=== PATIENT | male | born 1970 | race Two or more races ===

== ENCOUNTER 2024-09-14 16:17 | Inpatient (IN) | payer MEDICAID, OTHER, SELFPAY ==
[2024-09-14 16:46] VITALS: BP 109/62; PULSE 128; RESP 24; TEMP 38.8; O2SAT 98
[2024-09-14 16:59] VITALS: BMI 19.5
--- NOTE | 2024-09-14 17:00 | XR_ITS ---
Examination: AP chest single view Technique: Portable sitting AP chest single view Exam date and time: September 14, 2024 1749 hrs. Indications: New admission Findings: Atelectasis versus pneumonia left base Right ventricular peritoneal shunt tube satisfactory position Normal heart size Tracheostomy tube 7 cm above diego Impression: Atelectasis versus pneumonia left base, clinical correlation advised
[2024-09-14 17:21] LABS: Base Excess 19 (-3-3); HCO3 45 mEq/L (20-26); Inspired O2, VO2 Liters 3 L/min; Inspired Oxygen, FIO2 21 %; O2 Saturation 95 % (91-98); PCO2 59 mmHg (32.0-48.0); PO2 72 mmHg (83-108); pH, Arterial 7.49 (7.35-7.45)
[2024-09-14 17:24] LABS: Allen Test Performed/OK; Puncture Site Left Radial
[2024-09-14 17:47] LABS: Basophils # (Auto) 0.1 Thou/mm3 (0.0-0.2); Basophils % (Auto) 1 % (0-2.5); Eosinophils # (Auto) 0.3 Thou/mm3 (0.0-0.5); Eosinophils % (Auto) 4 % (0-10); Hematocrit 33.7 % (41.0-53.0); Hemoglobin 10.3 g/dL (13.5-16.0); Immature Granulocytes % (Auto) 0 % (0-0); Immature Granulocytes Auto 0.02 Thou/mm3 (0.00-0.00); Lymphocytes % (Auto) 39 % (10-50); Mean Corpuscular HGB Conc 30.6 g/dl (31.0-37.0); Mean Corpuscular Hemoglobin 25.9 pg (25.0-35.0); Mean Corpuscular Volume 85 fL (80-100); Monocytes # (Auto) 0.7 Thou/mm3 (0.0-0.8); Monocytes % (Auto) 9 % (0-12); Neutrophils # (Auto) 3.6 Thou/mm3 (1.8-7.7); Neutrophils % (Auto) 47 % (37-80); Nucleated Red Blood Cell % 0 /100 WBC (0); Platelet Count 429 Thou/mm3 (140-440); RDW Standard Deviation 51.4 fL (35.1-43.9); Red Blood Count 3.98 Miln/mm3 (4.50-5.90); White Blood Count 7.6 Thou/mm3 (3.8-10.6)
--- NOTE | 2024-09-14 17:54 | PC.ADMIT ---
Resident Arrived by ambulance via gurney from [facility]. Alert and oriented x2. Resident is currently a inmate from [facility]. Resident with trach collar, Oxygen with 2L via mask. Complete assessment was done Air Brush Decorator assisted by Nurse Paulette and Nurse Sanjuanita Pa, During assessment pictures were taken, Multiple skin issues were noted open areas, DIT , to sacrum area. These skin issues will be assess by Wound nurse as early as tomorrow, temporary treatment in place. Resident able to localize pain. noted increased HR during assessment, body temperature noted to be warm. rectal temp took it 101.9, HR 125, RR 21, B/P 128/62. Initiated cooling measures . No respiratory distress noted at the time of arrival(1608). Will continue to monitor and carried out all med orders. Dr. Sanchez aware of resident's admission.
[2024-09-14 18:00] VITALS: BP 131/84; PULSE 120; RESP 20; TEMP 37.7; O2SAT 92
[2024-09-14 18:15] LABS: Albumin, Serum 3.4 gm/dL (3.5-5.0); Alkaline Phosphatase 154 U/L (46-116); Anion Gap 8 (7-16); Aspartate Amino Transferase 15 U/L (0-34); BUN/Creatinine Ratio 28 Ratio (12-20); Bilirubin,Total 0.2 mg/dL (0.3-1.2); Blood Urea Nitrogen 11 mg/dL (9-23); Calcium (Corrected) 10.5 mg/dL (8.5-10.1); Carbon Dioxide 39.4 mMol/L (20.0-31.0); Chloride 105 mMol/L (98-107); Creatinine (Component) 0.4 mg/dL (0.6-1.3); Estimated Creatinine Clearance 169.3 mL/min (>60); Globulin 3.5 gm/dL (2.3-3.5); Glucose 107 mg/dL (74-106); Osmolality,Calculated 301 (275-295); Potassium 2.8 mMol/L (3.4-5.1); Sodium 152 mMol/L (136-145); Total Protein 6.9 gm/dL (5.7-8.2); eGFR > 60 See Note
[2024-09-14 18:20] LABS: Alanine Aminotransferase < 7 U/L (10-49)
[2024-09-14 21:00] VITALS: TEMP 37.3
[2024-09-14 21:10] VITALS: PULSE 101; RESP 20; O2SAT 94
[2024-09-14] MEDS: ACETAMINOPHEN 325 MG TABLET 650 MG GT (21:55)
[2024-09-14] MEDS: [UNRECOGNIZED DRUG - OTHER] GT (21:55)
[2024-09-14] MEDS: GABAPENTIN 100 MG CAPSULE 200 MG GT (21:55)
[2024-09-14] MEDS: DOCUSATE GT (21:55)
[2024-09-14 23:00] VITALS: TEMP 37.3
[2024-09-15] VITALS (7 sets, daily range): BP systolic 106–139; BP diastolic 68–77; PULSE 96–115; RESP 16–30; TEMP 36.1–37.4; O2SAT 92–96
[2024-09-15] MEDS: POTASSIUM CHLORIDE 10 MEQ CAPSULE.ER GT (00:40)
--- NOTE | 2024-09-15 03:40 | PC.NURSE ---
Notified Dr Sanchez regarding Na+156. K+ 2.8, new order to give Potassium Chloride 10 meq x 1 dose now and repeat Renal panel in AM.
[2024-09-15] MEDS: METOCLOPRAMIDE 5 MG/5 ML 10 MG GT ×3 (05:17→21:26)
[2024-09-15] MEDS: ACETAMINOPHEN 325 MG TABLET 650 MG GT (07:36)
[2024-09-15] MEDS: ENOXAPARIN SODIUM 40 MG/0.4 ML SYRINGE SC (09:13)
[2024-09-15] MEDS: ASCORBIC ACID 500 MG TABLET GT (09:16)
[2024-09-15] MEDS: levETIRAcetam 100 MG/ML SOLUTION 500 MG GT ×2 (09:16→21:26)
[2024-09-15] MEDS: GABAPENTIN 100 MG CAPSULE 200 MG GT ×2 (09:16→21:26)
[2024-09-15] MEDS: CHOLECALCIFEROL (VITAMIN D3) 25 MCG TABLET 50 MCG PO (09:16)
[2024-09-15] MEDS: METOPROLOL SUCCINATE 25 MG GT (09:16)
[2024-09-15] MEDS: SCOPOLAMINE 1.5 MG TD (09:17)
[2024-09-15] MEDS: MULTIVITAMIN W MINERALS 1 EACH TABLET GT (09:17)
[2024-09-15 10:37] LABS: Albumin, Serum 3.4 gm/dL (3.5-5.0); Anion Gap 6 (7-16); BUN/Creatinine Ratio 33 Ratio (12-20); Blood Urea Nitrogen 13 mg/dL (9-23); Calcium 9.7 mg/dL (8.3-10.6); Calcium (Corrected) 10.2 mg/dL (8.5-10.1); Carbon Dioxide > 40.0 mMol/L (20.0-31.0); Chloride 104 mMol/L (98-107); Creatinine (Component) 0.4 mg/dL (0.6-1.3); Estimated Creatinine Clearance 169.3 mL/min (>60); Glucose 136 mg/dL (74-106); Osmolality,Calculated 300 (275-295); Phosphorous 3.9 mg/dL (2.4-5.1); Potassium 2.9 mMol/L (3.4-5.1); Sodium 150 mMol/L (136-145); eGFR > 60 See Note
--- NOTE | 2024-09-15 12:15 | ESHP_ITS ---
Physical exam Physical Exam Vital signs: Temp Pulse Resp BP Pulse Ox O2 Del Method O2 Flow Rate 98.6 F 108 H 30 H 139/77 H 92 L Trach Collar 6 09/15/24 17:45 09/15/24 17:45 09/15/24 17:45 09/15/24 17:45 09/15/24 17:45 09/14/24 16:46 09/15/24 12:12 FiO2 28 09/15/24 12:12 Constitutional Comments: VSS Neck Exam Comments: NAD Chest/Breast/Axilla Exam Comments: NAD Respiratory Exam Respiratory: Present chest non-tender, lungs clear, normal breath sounds and no resp distress Comments: Tracheostomy to blow by Cardiovascular Exam Cardiovascular: Present RRR, S1 and S2 Abdominal Exam Abdominal: Present normoactive bowel sounds Rectal Exam Comments: deferred Exam Comments: NAD Extremities Exam Comments: No clubbing , cyanosis or edema Back/Spine/Pelvis Exam Comments: NAD Skin Exam Comments: Sacral wound healing Neurological Exam Neurological: Present alert and oriented X3 Comments: Quadriplegic , incontinent of B & B Rehabilitation potential Diagnosis (1) Chronic respiratory failure: Status: Chronic (2) Disseminated coccidioidomycosis: Status: Chronic (3) Hydrocephalus: Status: Chronic (4) Ventriculo-peritoneal shunt status: Status: Chronic (5) Quadriplegia: Status: Chronic (6) G tube feedings: Status: Chronic (7) Tracheostomy in place: Status: Chronic Assessment & Plan Assessment: Pt is a inmate admitted to [facility] on 09/14/24 for intermediate accountant care with : Chronic disseminated Cocci involving 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 Continued on ongoing treatment which is reviewed from time to time Denies any pain/ headaches and remains amiable. 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
[2024-09-15] MEDS: TRAMADOL 50 MG TABLET 25 MG GT (21:15)
[2024-09-15] MEDS: ATORVASTATIN 10 MG TABLET GT (21:26)
[2024-09-15] MEDS: [UNRECOGNIZED DRUG - OTHER] GT (21:26)
[2024-09-15] MEDS: DOCUSATE GT (21:26)
[2024-09-16] VITALS (9 sets, daily range): BP systolic 126–141; BP diastolic 72–79; PULSE 90–117; RESP 20–24; TEMP 36.7–38; O2SAT 96–98
[2024-09-16] MEDS: POTASSIUM CHLORIDE 20 MEQ TAB.ER.PRT 40 MEQ GT
--- NOTE | 2024-09-16 00:30 | PC.NURSE ---
Peg tube clogged during administration of 40meq K+.. unable to unclog.
--- NOTE | 2024-09-16 02:25 | PC.NURSE ---
FLORAL SPECIALIST called this nurse to ER for gtube clogged, multiple attempts used to unclog the gtube, made aware, new order obtained to sent resident to ER for treatment and evaluation for clogged Gtube, resident was transported via bed by FLORAL SPECIALIST, TRANSPORT COORDINATOR, RT, and 2 correctional officers.
--- NOTE | 2024-09-16 02:30 | PC.NURSE ---
resident sent to ED at this time for Peg tub evaluation due to unsuccessful attempts to unclog
--- NOTE | 2024-09-16 02:36 | PC.NURSE ---
Late entry for 09/16/232219- made aware of lab results, new orders obtain to give potassium 40Meq via Gtube now and then another dose 6 hours after, cmp and magnesium lab to be done in morning.
--- NOTE | 2024-09-16 03:13 | PC.NURSE ---
Resident back at 0309 via bed, accompanied by WHISKEY PROOF READER, REPLENISHER, RT and two correctional officers, new Gtube placed by STEFANIA CRAIG.
--- NOTE | 2024-09-16 03:15 | PC.NURSE ---
resident back in dp/snf room after peg tube changed with same size 14f 5ml ns peg tube. resident comfortable in [id number] at this time
[2024-09-16] MEDS: METOCLOPRAMIDE 5 MG/5 ML 10 MG GT ×3 (05:34→21:40)
[2024-09-16] MEDS: MIDODRINE 5 MG TABLET GT ×3 (05:34→21:38)
[2024-09-16] MEDS: ASCORBIC ACID 500 MG TABLET GT (08:45)
[2024-09-16] MEDS: ENOXAPARIN SODIUM 40 MG/0.4 ML SYRINGE SC (08:47)
[2024-09-16] MEDS: CHOLECALCIFEROL (VITAMIN D3) 25 MCG TABLET 50 MCG PO (08:47)
[2024-09-16] MEDS: MULTIVITAMIN W MINERALS 1 EACH TABLET GT (08:48)
[2024-09-16] MEDS: FLUCONAZOLE 200 MG TABLET 1200 MG GT (08:48)
[2024-09-16] MEDS: GABAPENTIN 100 MG CAPSULE 200 MG GT ×2 (08:48→21:38)
[2024-09-16] MEDS: POTASSIUM CHLORIDE 8 MEQ TABLET.ER 40 MEQ GT (08:49)
[2024-09-16] MEDS: levETIRAcetam 100 MG/ML SOLUTION 500 MG GT ×2 (08:50→21:38)
[2024-09-16] MEDS: ACETAMINOPHEN 325 MG TABLET 650 MG GT ×2 (08:51)
[2024-09-16 11:03] LABS: Alanine Aminotransferase < 7 U/L (10-49); Albumin, Serum 3.3 gm/dL (3.5-5.0); Alkaline Phosphatase 129 U/L (46-116); Anion Gap 5 (7-16); Aspartate Amino Transferase 15 U/L (0-34); BUN/Creatinine Ratio 28 Ratio (12-20); Bilirubin,Total < 0.2 mg/dL (0.3-1.2); Blood Urea Nitrogen 11 mg/dL (9-23); Calcium 9.5 mg/dL (8.3-10.6); Calcium (Corrected) 10.1 mg/dL (8.5-10.1); Carbon Dioxide > 40.0 mMol/L (20.0-31.0); Chloride 106 mMol/L (98-107); Creatinine (Component) 0.4 mg/dL (0.6-1.3); Estimated Creatinine Clearance 169.3 mL/min (>60); Globulin 3.2 gm/dL (2.3-3.5); Glucose 129 mg/dL (74-106); Magnesium 1.8 mg/dL (1.6-2.6); Osmolality,Calculated 301 (275-295); Potassium 3.1 mMol/L (3.4-5.1); Sodium 151 mMol/L (136-145); Total Protein 6.5 gm/dL (5.7-8.2); eGFR > 60 See Note
[2024-09-16] MEDS: METOPROLOL 50 MG TABLET 25 MG GT ×2 (14:18→23:38)
[2024-09-16] MEDS: TRAMADOL 50 MG TABLET 25 MG GT (17:13)
--- NOTE | 2024-09-16 17:35 | PC.NURSE ---
Made Dr. Jacobs of blood draw results collected this morning. Na+ 151 H; K+ 3.1L; BUN 11 normal; Creatinine 0.4 L; Mag. 1.8; New orders: increase H20 from minimum of 450ml per shift to a minimum of 600ml per shift, Potassium give 40mcq now and 40 mcg daily x7 days; repeat CMP on Saturday (09/18/2024); continue Mag x4 days.
[2024-09-16] MEDS: POTASSIUM CHLORIDE 40 MEQ/15 ML LIQUID GT (18:35)
[2024-09-16] MEDS: ATORVASTATIN 10 MG TABLET GT (21:38)
[2024-09-16] MEDS: [UNRECOGNIZED DRUG - OTHER] GT (21:39)
[2024-09-16] MEDS: DOCUSATE GT (21:39)
[2024-09-17] VITALS (8 sets, daily range): BP systolic 120–134; BP diastolic 73–88; PULSE 84–107; RESP 20; TEMP 36.3–36.6; O2SAT 96–97
[2024-09-17] MEDS: MAGNESIUM OXIDE 400 MG TABLET GT (02:24)
[2024-09-17] MEDS: TRAMADOL 50 MG TABLET 25 MG GT (05:00)
[2024-09-17] MEDS: METOCLOPRAMIDE 5 MG/5 ML 10 MG GT ×3 (05:55→21:07)
[2024-09-17] MEDS: MIDODRINE 5 MG TABLET GT ×2 (05:55→13:16)
[2024-09-17] MEDS: ENOXAPARIN SODIUM 40 MG/0.4 ML SYRINGE SC (08:11)
[2024-09-17] MEDS: FLUCONAZOLE 200 MG TABLET 1200 MG GT (08:12)
[2024-09-17] MEDS: CHOLECALCIFEROL (VITAMIN D3) 25 MCG TABLET 50 MCG PO (08:13)
[2024-09-17] MEDS: ASCORBIC ACID 500 MG TABLET GT (08:13)
[2024-09-17] MEDS: GABAPENTIN 100 MG CAPSULE 200 MG GT ×2 (08:14→21:04)
[2024-09-17] MEDS: levETIRAcetam 100 MG/ML SOLUTION 500 MG GT ×2 (08:14→21:05)
[2024-09-17] MEDS: METOPROLOL 50 MG TABLET 25 MG GT ×2 (08:16→21:05)
[2024-09-17] MEDS: MULTIVITAMIN W MINERALS 1 EACH TABLET GT (08:17)
--- NOTE | 2024-09-17 10:10 | PC.NURSE ---
Resident has an order for potassium chloride 40 meq solution PGT daily, first dose given yesterday at 18:45, called pharmacy and spoke with Mona, 3 days supply will be delivered today at 3:00 pm run
--- NOTE | 2024-09-17 15:30 | PC.NURSE ---
Resident had a bedbath today, treatments done by corby DICKSON
[2024-09-17] MEDS: ACETAMINOPHEN 325 MG TABLET 650 MG GT (16:50)
--- NOTE | 2024-09-17 17:04 | PC.NURSE ---
Speech therapy came and evaluate resident and suggested that resident can have 2-3 ice chips at a time, can have thin liquids and renetta toro MD. made aware and OK with it.
[2024-09-17] MEDS: POTASSIUM CHLORIDE 40 MEQ/15 ML LIQUID GT (18:35)
--- NOTE | 2024-09-17 19:11 | PC.NURSE ---
No adverse reaction noted from Fluconazole for Coccidioidomycosis meningitis. Respiration even and unlabored. Gt feeding tolertaed well. Started on pureed diet at dinner time, tolerated well. C/O generalized pain x 1 during the shit, tylenol PRN PGT given noted to be effective.
[2024-09-17] MEDS: ATORVASTATIN 10 MG TABLET GT (21:04)
[2024-09-17] MEDS: DOCUSATE GT (21:06)
[2024-09-17] MEDS: [UNRECOGNIZED DRUG - OTHER] GT (21:06)
[2024-09-18] VITALS (10 sets, daily range): BP systolic 124–146; BP diastolic 72–89; PULSE 87–112; RESP 18–22; TEMP 36.7–38.1; O2SAT 97–98
[2024-09-18] MEDS: ACETAMINOPHEN 325 MG TABLET 650 MG GT ×2 (00:38→09:32)
[2024-09-18] MEDS: MAGNESIUM OXIDE 400 MG TABLET GT (02:52)
[2024-09-18] MEDS: TRAMADOL 50 MG TABLET 25 MG GT ×2 (02:53→15:15)
[2024-09-18] MEDS: METOCLOPRAMIDE 5 MG/5 ML 10 MG GT ×3 (05:52→21:48)
[2024-09-18 07:49] LABS: Alanine Aminotransferase < 7 U/L (10-49); Albumin, Serum 3.4 gm/dL (3.5-5.0); Alkaline Phosphatase 130 U/L (46-116); Anion Gap 7 (7-16); Aspartate Amino Transferase 17 U/L (0-34); BUN/Creatinine Ratio 28 Ratio (12-20); Bilirubin,Total < 0.2 mg/dL (0.3-1.2); Blood Urea Nitrogen 11 mg/dL (9-23); Calcium 9.7 mg/dL (8.3-10.6); Calcium (Corrected) 10.2 mg/dL (8.5-10.1); Carbon Dioxide 36.3 mMol/L (20.0-31.0); Chloride 107 mMol/L (98-107); Creatinine (Component) 0.4 mg/dL (0.6-1.3); Estimated Creatinine Clearance 169.3 mL/min (>60); Globulin 3.5 gm/dL (2.3-3.5); Glucose 130 mg/dL (74-106); Magnesium 1.9 mg/dL (1.6-2.6); Osmolality,Calculated 299 (275-295); Potassium 3.5 mMol/L (3.4-5.1); Sodium 150 mMol/L (136-145); Total Protein 6.9 gm/dL (5.7-8.2); eGFR > 60 See Note
[2024-09-18] MEDS: ASCORBIC ACID 500 MG TABLET GT (09:25)
[2024-09-18] MEDS: CHOLECALCIFEROL (VITAMIN D3) 25 MCG TABLET 50 MCG PO (09:26)
[2024-09-18] MEDS: FLUCONAZOLE 200 MG TABLET 1200 MG GT (09:27)
[2024-09-18] MEDS: GABAPENTIN 100 MG CAPSULE 200 MG GT ×2 (09:28→21:48)
[2024-09-18] MEDS: levETIRAcetam 100 MG/ML SOLUTION 500 MG GT ×2 (09:28→21:48)
--- NOTE | 2024-09-18 09:28 | PC.DIETICIAN ---
Dietitian note: Pt passed swallow eval. If he consumes consecutive >50% of meals x 3-4meals, consider HOLD continuous feeds, change to bolus feeds: Give Glucerna Shake (carton/bottle ) 237ml if eats <50%. RD to follow nutrition regimen, oral intake, diet advancement.
[2024-09-18] MEDS: METOPROLOL 50 MG TABLET 25 MG GT ×2 (09:29→21:48)
[2024-09-18] MEDS: MULTIVITAMIN W MINERALS 1 EACH TABLET GT (09:29)
[2024-09-18] MEDS: SCOPOLAMINE 1.5 MG TD (09:30)
[2024-09-18] MEDS: ENOXAPARIN SODIUM 40 MG/0.4 ML SYRINGE SC (09:32)
[2024-09-18] MEDS: MIDODRINE 5 MG TABLET GT ×2 (13:12→21:35)
--- NOTE | 2024-09-18 16:23 | PC.SS ---
MDS Note: Resident is alert and oriented understands all information being provided to him, he is able to answer questions appropriately. He has absence of speech hard to understand at times.
[2024-09-18] MEDS: ATORVASTATIN 10 MG TABLET GT (21:47)
[2024-09-18] MEDS: DOCUSATE GT (21:48)
[2024-09-18] MEDS: [UNRECOGNIZED DRUG - OTHER] GT (21:48)
[2024-09-19] VITALS (8 sets, daily range): BP systolic 125–136; BP diastolic 79–87; PULSE 85–109; RESP 20–24; TEMP 36.4–36.9; O2SAT 95–98
[2024-09-19] MEDS: MAGNESIUM OXIDE 400 MG TABLET GT (02:39)
[2024-09-19] MEDS: MIDODRINE 5 MG TABLET GT ×2 (05:12→13:00)
[2024-09-19] MEDS: METOCLOPRAMIDE 5 MG/5 ML 10 MG GT ×3 (05:33→21:59)
[2024-09-19] MEDS: ASCORBIC ACID 500 MG TABLET GT (08:24)
[2024-09-19] MEDS: FLUCONAZOLE 200 MG TABLET 1200 MG GT (08:34)
[2024-09-19] MEDS: CHOLECALCIFEROL (VITAMIN D3) 25 MCG TABLET 50 MCG PO (08:34)
[2024-09-19] MEDS: ENOXAPARIN SODIUM 40 MG/0.4 ML SYRINGE SC (08:34)
[2024-09-19] MEDS: levETIRAcetam 100 MG/ML SOLUTION 500 MG GT ×2 (08:35→21:58)
[2024-09-19] MEDS: GABAPENTIN 100 MG CAPSULE 200 MG GT ×2 (08:35→21:58)
[2024-09-19] MEDS: METOPROLOL 50 MG TABLET 25 MG GT ×2 (08:35→21:58)
[2024-09-19] MEDS: MULTIVITAMIN W MINERALS 1 EACH TABLET GT (08:36)
[2024-09-19] MEDS: ACETAMINOPHEN 325 MG TABLET 650 MG GT ×2 (11:10→21:45)
--- NOTE | 2024-09-19 13:00 | PD.SAPROG ---
Progress Note - SubAcute DIAGNOSIS (1) Chronic respiratory failure: Status: Chronic (2) Disseminated coccidioidomycosis: Status: Chronic (3) Hydrocephalus: Status: Chronic (4) Ventriculo-peritoneal shunt status: Status: Chronic (5) Quadriplegia: Status: Chronic (6) G tube feedings: Status: Chronic (7) Tracheostomy in place: Status: Chronic OBJECTIVE Most recent vital signs: Last Vital Signs Temp 97.1 F 09/20/24 06:00 Pulse 91 09/20/24 08:03 Resp 20 09/20/24 07:07 BP 139/85 H 09/20/24 08:03 Pulse Ox 97 09/20/24 07:07 O2 Del Method Blow-by 09/20/24 06:00 O2 Flow Rate 6 09/20/24 07:07 FiO2 28 09/20/24 07:07 Speech:: mouths words and appropriate Answers questions:: yes Respiratory:: lungs clear and shallow breathing Cardiovascular: RRR Abdomen: soft Tracheostomy:: to blow by Feeding per:: G tube Complaints:: none ASSESSMENT & PLAN Assessment: Pt is a inmate admitted to [facility] on 09/14/24 for terminal makeup operator care with : Chronic disseminated Cocci involving 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 Continued on ongoing treatment which is reviewed from time to time Denies any pain/ headaches and remains amiable. VSS Plan: Current treatment reviewed and continued
[2024-09-19] MEDS: POTASSIUM CHLORIDE 40 MEQ/15 ML LIQUID GT (17:57)
[2024-09-19] MEDS: ATORVASTATIN 10 MG TABLET GT (21:57)
[2024-09-19] MEDS: [UNRECOGNIZED DRUG - OTHER] GT (21:58)
[2024-09-19] MEDS: DOCUSATE GT (21:58)
[2024-09-20] VITALS (8 sets, daily range): BP systolic 123–141; BP diastolic 79–85; PULSE 71–91; RESP 18–22; TEMP 36.2–37.2; O2SAT 96–99
[2024-09-20] MEDS: MAGNESIUM OXIDE 400 MG TABLET GT (02:05)
[2024-09-20] MEDS: METOCLOPRAMIDE 5 MG/5 ML 10 MG GT ×3 (05:45→21:25)
[2024-09-20] MEDS: CHOLECALCIFEROL (VITAMIN D3) 25 MCG TABLET 50 MCG PO (08:03)
[2024-09-20] MEDS: GABAPENTIN 100 MG CAPSULE 200 MG GT ×2 (08:03→21:24)
[2024-09-20] MEDS: ASCORBIC ACID 500 MG TABLET GT (08:03)
[2024-09-20] MEDS: MULTIVITAMIN W MINERALS 1 EACH TABLET GT (08:03)
[2024-09-20] MEDS: FLUCONAZOLE 200 MG TABLET 1200 MG GT (08:03)
[2024-09-20] MEDS: METOPROLOL 50 MG TABLET 25 MG GT ×2 (08:03→21:24)
[2024-09-20] MEDS: levETIRAcetam 100 MG/ML SOLUTION 500 MG GT ×2 (08:03→21:24)
[2024-09-20] MEDS: ENOXAPARIN SODIUM 40 MG/0.4 ML SYRINGE SC (08:04)
[2024-09-20] MEDS: POTASSIUM CHLORIDE 40 MEQ/15 ML LIQUID GT (17:12)
[2024-09-20] MEDS: ATORVASTATIN 10 MG TABLET GT (21:24)
[2024-09-20] MEDS: ACETAMINOPHEN 325 MG TABLET 650 MG GT (21:25)
[2024-09-20] MEDS: DOCUSATE GT (21:25)
[2024-09-20] MEDS: [UNRECOGNIZED DRUG - OTHER] GT (21:25)
[2024-09-21] VITALS (7 sets, daily range): BP systolic 126–142; BP diastolic 78–84; PULSE 84–101; RESP 18–20; TEMP 36.6–37.2; O2SAT 97–98
[2024-09-21] MEDS: TRAMADOL 50 MG TABLET 25 MG GT ×2 (05:00→21:16)
[2024-09-21] MEDS: METOCLOPRAMIDE 5 MG/5 ML 10 MG GT ×3 (05:04→21:11)
[2024-09-21 07:48] LABS: Magnesium 1.8 mg/dL (1.6-2.6)
[2024-09-21] MEDS: SCOPOLAMINE 1.5 MG TD (08:04)
[2024-09-21] MEDS: ASCORBIC ACID 500 MG TABLET GT (08:05)
[2024-09-21] MEDS: CHOLECALCIFEROL (VITAMIN D3) 25 MCG TABLET 50 MCG PO (08:06)
[2024-09-21] MEDS: ENOXAPARIN SODIUM 40 MG/0.4 ML SYRINGE SC (08:06)
[2024-09-21] MEDS: FLUCONAZOLE 200 MG TABLET 1200 MG GT (08:08)
[2024-09-21] MEDS: GABAPENTIN 100 MG CAPSULE 200 MG GT ×2 (08:09→21:09)
[2024-09-21] MEDS: ACETAMINOPHEN 325 MG TABLET 650 MG GT (08:10)
[2024-09-21] MEDS: levETIRAcetam 100 MG/ML SOLUTION 500 MG GT ×2 (08:11→21:10)
[2024-09-21] MEDS: METOPROLOL 50 MG TABLET 25 MG GT ×2 (08:11→21:11)
[2024-09-21] MEDS: MULTIVITAMIN W MINERALS 1 EACH TABLET GT (08:12)
[2024-09-21] MEDS: POTASSIUM CHLORIDE 40 MEQ/15 ML LIQUID GT (17:12)
[2024-09-21] MEDS: ATORVASTATIN 10 MG TABLET GT (21:09)
[2024-09-21] MEDS: [UNRECOGNIZED DRUG - OTHER] GT (21:11)
[2024-09-21] MEDS: DOCUSATE GT (21:11)
[2024-09-22] VITALS (7 sets, daily range): BP systolic 123–140; BP diastolic 79–87; PULSE 78–112; RESP 18–24; TEMP 36.6–37.2; O2SAT 97
[2024-09-22] MEDS: METOCLOPRAMIDE 5 MG/5 ML 10 MG GT ×3 (05:27→21:29)
[2024-09-22] MEDS: ASCORBIC ACID 500 MG TABLET GT (08:43)
[2024-09-22] MEDS: CHOLECALCIFEROL (VITAMIN D3) 25 MCG TABLET 50 MCG PO (08:44)
[2024-09-22] MEDS: ENOXAPARIN SODIUM 40 MG/0.4 ML SYRINGE SC (08:44)
[2024-09-22] MEDS: FLUCONAZOLE 200 MG TABLET 1200 MG GT (08:46)
[2024-09-22] MEDS: GABAPENTIN 100 MG CAPSULE 200 MG GT ×2 (08:46→21:27)
[2024-09-22] MEDS: METOPROLOL 50 MG TABLET 25 MG GT ×2 (08:47→21:28)
[2024-09-22] MEDS: levETIRAcetam 100 MG/ML SOLUTION 500 MG GT ×2 (08:47→21:28)
[2024-09-22] MEDS: MULTIVITAMIN W MINERALS 1 EACH TABLET GT (08:48)
--- NOTE | 2024-09-22 15:46 | PC.SS ---
Resident had scheduled court hearing via video call, CO's present at bedside during court hearing for compassion release. This SSD set up the zoom court hearing and left the room. No further updates regarding court hearing at this time.
[2024-09-22] MEDS: POTASSIUM CHLORIDE 40 MEQ/15 ML LIQUID GT (17:12)
[2024-09-22] MEDS: ACETAMINOPHEN 325 MG TABLET 650 MG GT (21:20)
[2024-09-22] MEDS: ATORVASTATIN 10 MG TABLET GT (21:27)
[2024-09-22] MEDS: [UNRECOGNIZED DRUG - OTHER] GT (21:29)
[2024-09-22] MEDS: DOCUSATE GT (21:29)
[2024-09-23] VITALS (8 sets, daily range): BP systolic 111–128; BP diastolic 62–79; PULSE 76–102; RESP 18–34; TEMP 36.2–37.6; O2SAT 94–98
[2024-09-23] MEDS: ACETAMINOPHEN 325 MG TABLET 650 MG GT ×2 (04:00→20:00)
[2024-09-23] MEDS: TRAMADOL 50 MG TABLET 25 MG GT ×2 (04:15→20:30)
[2024-09-23] MEDS: METOCLOPRAMIDE 5 MG/5 ML 10 MG GT ×3 (05:38→21:07)
[2024-09-23] MEDS: ENOXAPARIN SODIUM 40 MG/0.4 ML SYRINGE SC (09:34)
[2024-09-23] MEDS: CHOLECALCIFEROL (VITAMIN D3) 25 MCG TABLET 50 MCG PO (09:34)
[2024-09-23] MEDS: ASCORBIC ACID 500 MG TABLET GT (09:34)
[2024-09-23] MEDS: GABAPENTIN 100 MG CAPSULE 200 MG GT ×2 (09:35→20:52)
[2024-09-23] MEDS: FLUCONAZOLE 200 MG TABLET 1200 MG GT (09:35)
[2024-09-23] MEDS: METOPROLOL 50 MG TABLET 25 MG GT ×2 (09:36→20:52)
[2024-09-23] MEDS: levETIRAcetam 100 MG/ML SOLUTION 500 MG GT ×2 (09:36→20:52)
[2024-09-23] MEDS: MULTIVITAMIN W MINERALS 1 EACH TABLET GT (09:36)
--- NOTE | 2024-09-23 11:53 | PC.NURSE ---
Notified Repairer Veneer Sheet Charge Yun that Mr. Rose's midline to right upper arm is out about 1/4 of an inch. Ask to assess for placement and evaluate. She stated that she would be here after her lunch possibly at 1300.
[2024-09-23] MEDS: MIDODRINE 5 MG TABLET GT (13:56)
--- NOTE | 2024-09-23 15:09 | PC.NURSE ---
PICC to left upper arm assessed for s/s of redness/swelling to site and extremity. No redness or swelling noted to picc site or left extremity and is flushing well.
[2024-09-23] MEDS: POTASSIUM CHLORIDE 40 MEQ/15 ML LIQUID GT (17:14)
--- NOTE | 2024-09-23 17:37 | ESPR_ITS ---
Progress Note - SubAcute DIAGNOSIS (1) Chronic respiratory failure: Status: Chronic (2) Disseminated coccidioidomycosis: Status: Chronic (3) Hydrocephalus: Status: Chronic (4) Ventriculo-peritoneal shunt status: Status: Chronic (5) Quadriplegia: Status: Chronic (6) G tube feedings: Status: Chronic (7) Tracheostomy in place: Status: Chronic OBJECTIVE Most recent vital signs: Last Vital Signs Temp 98.6 F 09/23/24 12:00 Pulse 94 09/23/24 12:00 Resp 34 H 09/23/24 12:00 BP 128/76 09/23/24 12:00 Pulse Ox 95 09/23/24 06:00 O2 Del Method Blow-by 09/23/24 06:00 O2 Flow Rate 6 09/23/24 05:45 FiO2 28 09/23/24 05:45 Speech:: mouths words and appropriate Answers questions:: yes Respiratory:: lungs clear and shallow breathing Cardiovascular: RRR Abdomen: soft Tracheostomy:: to blow by Feeding per:: G tube Complaints:: none ASSESSMENT & PLAN Assessment: Pt is a inmate admitted to [facility] on 09/14/24 for assistant terminal manager care with : Chronic disseminated Cocci involving 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 Continued on ongoing treatment which is reviewed from time to time Denies any pain/ headaches and remains amiable. VSS Plan: Current treatment reviewed and continued
[2024-09-23] MEDS: ATORVASTATIN 10 MG TABLET GT (20:52)
[2024-09-23] MEDS: DOCUSATE GT (20:52)
[2024-09-23] MEDS: [UNRECOGNIZED DRUG - OTHER] GT (20:52)
[2024-09-24] VITALS (8 sets, daily range): BP systolic 123–138; BP diastolic 73–84; PULSE 78–106; RESP 18–23; TEMP 35.8–36.9; O2SAT 98–99
[2024-09-24] MEDS: METOCLOPRAMIDE 5 MG/5 ML 10 MG GT ×3 (05:54→21:23)
[2024-09-24] MEDS: SCOPOLAMINE 1.5 MG TD (08:30)
[2024-09-24] MEDS: ASCORBIC ACID 500 MG TABLET GT (08:36)
[2024-09-24] MEDS: CHOLECALCIFEROL (VITAMIN D3) 25 MCG TABLET 50 MCG PO (08:36)
[2024-09-24] MEDS: ENOXAPARIN SODIUM 40 MG/0.4 ML SYRINGE SC (08:37)
[2024-09-24] MEDS: FLUCONAZOLE 200 MG TABLET 1200 MG GT (08:38)
[2024-09-24] MEDS: levETIRAcetam 100 MG/ML SOLUTION 500 MG GT ×2 (08:38→21:22)
[2024-09-24] MEDS: GABAPENTIN 100 MG CAPSULE 200 MG GT ×2 (08:38→21:22)
[2024-09-24] MEDS: METOPROLOL 50 MG TABLET 25 MG GT ×2 (08:39→21:22)
[2024-09-24] MEDS: MULTIVITAMIN W MINERALS 1 EACH TABLET GT (08:40)
[2024-09-24] MEDS: ACETAMINOPHEN 325 MG TABLET 650 MG GT ×2 (08:41→18:00)
[2024-09-24] MEDS: ATORVASTATIN 10 MG TABLET GT (21:22)
[2024-09-24] MEDS: [UNRECOGNIZED DRUG - OTHER] GT (21:23)
[2024-09-24] MEDS: DOCUSATE GT (21:23)
[2024-09-24] MEDS: TRAMADOL 50 MG TABLET 25 MG GT (21:30)
[2024-09-25] VITALS (7 sets, daily range): BP systolic 112–149; BP diastolic 68–80; PULSE 89–97; RESP 18–21; TEMP 36.2–36.9; O2SAT 98–99
[2024-09-25] MEDS: ACETAMINOPHEN 325 MG TABLET 650 MG GT ×2 (05:00→09:13)
[2024-09-25] MEDS: METOCLOPRAMIDE 5 MG/5 ML 10 MG GT ×3 (05:56→21:20)
[2024-09-25] MEDS: MIDODRINE 5 MG TABLET GT (05:56)
[2024-09-25 08:53] LABS: Alanine Aminotransferase 7 U/L (10-49); Albumin, Serum 3.6 gm/dL (3.5-5.0); Albumin/Globulin Ratio 1.1 (1.2-2.2); Alkaline Phosphatase 132 U/L (46-116); Anion Gap 6 (7-16); Aspartate Amino Transferase 12 U/L (0-34); BUN/Creatinine Ratio 33 Ratio (12-20); Bilirubin,Total < 0.2 mg/dL (0.3-1.2); Blood Urea Nitrogen 13 mg/dL (9-23); Calcium 10.1 mg/dL (8.3-10.6); Calcium (Corrected) 10.4 mg/dL (8.5-10.1); Carbon Dioxide 38.3 mMol/L (20.0-31.0); Chloride 101 mMol/L (98-107); Creatinine (Component) 0.4 mg/dL (0.6-1.3); Estimated Creatinine Clearance 169.3 mL/min (>60); Globulin 3.4 gm/dL (2.3-3.5); Glucose 106 mg/dL (74-106); Osmolality,Calculated 288 (275-295); Potassium 3.8 mMol/L (3.4-5.1); Sodium 145 mMol/L (136-145); eGFR > 60 See Note
[2024-09-25] MEDS: CHOLECALCIFEROL (VITAMIN D3) 25 MCG TABLET 50 MCG PO (09:03)
[2024-09-25] MEDS: ASCORBIC ACID 500 MG TABLET GT (09:03)
[2024-09-25] MEDS: GABAPENTIN 100 MG CAPSULE 200 MG GT ×2 (09:04→20:38)
[2024-09-25] MEDS: levETIRAcetam 100 MG/ML SOLUTION 500 MG GT ×2 (09:04→20:39)
[2024-09-25] MEDS: FLUCONAZOLE 200 MG TABLET 1200 MG GT (09:04)
[2024-09-25] MEDS: MULTIVITAMIN W MINERALS 1 EACH TABLET GT (09:06)
[2024-09-25] MEDS: METOPROLOL 50 MG TABLET 25 MG GT ×2 (09:07→21:50)
[2024-09-25] MEDS: ENOXAPARIN SODIUM 40 MG/0.4 ML SYRINGE SC (09:08)
[2024-09-25] MEDS: TRAMADOL 50 MG TABLET 25 MG GT (14:15)
--- NOTE | 2024-09-25 14:38 | PC.SS ---
Resident is laying in bed with head of the bed elevated with call light properly placed with no signs of distress. Resident has trach in place and GT for medication and nutrition. Resident has unclear speech able to make simple decisions for self. Resident will remain in current care and will continue to have all subacute care needs met by staff. This SSD will make daily contact with resident and will monitor for changes in mood and behavior.
--- NOTE | 2024-09-25 15:42 | PC.NURSE ---
Resident completed the potassium chloride 40 meq daily x [address] Jacobs reviewed resident's lab result, with order received to do CMP on 10/08/24. With PICC line to left upper arm, not in used, order receivedfrom Dr Jacobs to d/c it
--- NOTE | 2024-09-25 19:36 | PC.NURSE ---
Resident ate 50% of breakfast, lunch and dinner. No s/s of any choking or aspiration reported.
[2024-09-25] MEDS: ATORVASTATIN 10 MG TABLET GT (20:38)
[2024-09-25] MEDS: DOCUSATE GT (20:41)
[2024-09-25] MEDS: [UNRECOGNIZED DRUG - OTHER] GT (20:41)
[2024-09-26] VITALS (8 sets, daily range): BP systolic 124–136; BP diastolic 70–88; PULSE 82–110; RESP 18–21; TEMP 36.4–36.8; O2SAT 96–99
[2024-09-26] MEDS: METOCLOPRAMIDE 5 MG/5 ML 10 MG GT ×3 (05:38→21:28)
[2024-09-26] MEDS: ENOXAPARIN SODIUM 40 MG/0.4 ML SYRINGE SC (09:27)
[2024-09-26] MEDS: CHOLECALCIFEROL (VITAMIN D3) 25 MCG TABLET 50 MCG PO (09:36)
[2024-09-26] MEDS: FLUCONAZOLE 200 MG TABLET 1200 MG GT (09:36)
[2024-09-26] MEDS: ASCORBIC ACID 500 MG TABLET GT (09:36)
[2024-09-26] MEDS: GABAPENTIN 100 MG CAPSULE 200 MG GT ×2 (09:37→21:30)
[2024-09-26] MEDS: levETIRAcetam 100 MG/ML SOLUTION 500 MG GT ×2 (09:37→21:30)
[2024-09-26] MEDS: MULTIVITAMIN W MINERALS 1 EACH TABLET GT (09:38)
[2024-09-26] MEDS: METOPROLOL 50 MG TABLET 25 MG GT ×2 (09:42→21:29)
--- NOTE | 2024-09-26 12:01 | PC.NURSE ---
Discontinue PICC line without complications. Resident tolerated well.
[2024-09-26] MEDS: [UNRECOGNIZED DRUG - OTHER] GT (21:28)
[2024-09-26] MEDS: DOCUSATE GT (21:28)
[2024-09-26] MEDS: ATORVASTATIN 10 MG TABLET GT (21:30)
[2024-09-27] MEDS: METOCLOPRAMIDE 5 MG/5 ML 10 MG GT ×3 (05:18→22:01)
[2024-09-27 06:58] VITALS: PULSE 82; RESP 18; O2SAT 98
[2024-09-27] MEDS: ASCORBIC ACID 500 MG TABLET GT (08:59)
[2024-09-27] MEDS: ENOXAPARIN SODIUM 40 MG/0.4 ML SYRINGE SC (09:00)
[2024-09-27] MEDS: CHOLECALCIFEROL (VITAMIN D3) 25 MCG TABLET 50 MCG PO (09:00)
[2024-09-27] MEDS: FLUCONAZOLE 200 MG TABLET 1200 MG GT (09:00)
[2024-09-27] MEDS: GABAPENTIN 100 MG CAPSULE 200 MG GT ×2 (09:01→21:59)
[2024-09-27] MEDS: levETIRAcetam 100 MG/ML SOLUTION 500 MG GT ×2 (09:02→22:00)
[2024-09-27 09:03] VITALS: BP 132/72; PULSE 83
[2024-09-27] MEDS: METOPROLOL 50 MG TABLET 25 MG GT ×2 (09:03→22:00)
[2024-09-27] MEDS: MULTIVITAMIN W MINERALS 1 EACH TABLET GT (09:04)
[2024-09-27] MEDS: SCOPOLAMINE 1.5 MG TD (09:35)
--- NOTE | 2024-09-27 10:55 | ESPR_ITS ---
Progress Note - SubAcute DIAGNOSIS (1) Chronic respiratory failure: Status: Chronic (2) Disseminated coccidioidomycosis: Status: Chronic (3) Hydrocephalus: Status: Chronic (4) Ventriculo-peritoneal shunt status: Status: Chronic (5) Quadriplegia: Status: Chronic (6) G tube feedings: Status: Chronic (7) Tracheostomy in place: Status: Chronic OBJECTIVE Most recent vital signs: Last Vital Signs Temp 98.0 F 09/26/24 17:57 Pulse 83 09/27/24 09:03 Resp 18 09/27/24 06:58 BP 132/72 H 09/27/24 09:03 Pulse Ox 98 09/27/24 06:58 O2 Del Method Blow-by 09/26/24 17:57 O2 Flow Rate 6 09/27/24 06:58 FiO2 28 09/27/24 06:58 Speech:: mouths words and appropriate Answers questions:: yes Respiratory:: lungs clear and shallow breathing Cardiovascular: RRR Abdomen: soft Tracheostomy:: to blow by Feeding per:: G tube Complaints:: none ASSESSMENT & PLAN Assessment: Pt is a inmate admitted to [facility] on 09/14/24 for long term acute care registered nurse care with : Chronic disseminated Cocci involving 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 Continued on ongoing treatment which is reviewed from time to time Denies any pain/ headaches and remains amiable. VSS. No new issues. Plan: Current treatment reviewed and continued
[2024-09-27 12:00] VITALS: BP 128/84; PULSE 105; RESP 19; TEMP 36.6
[2024-09-27 18:00] VITALS: BP 132/85; PULSE 101; RESP 26; TEMP 37; O2SAT 99
[2024-09-27] MEDS: MIDODRINE 5 MG TABLET GT (20:20)
[2024-09-27] MEDS: DOCUSATE GT (21:25)
[2024-09-27] MEDS: [UNRECOGNIZED DRUG - OTHER] GT (21:25)
[2024-09-27 21:30] VITALS: PULSE 92; RESP 18; O2SAT 96
[2024-09-27] MEDS: ATORVASTATIN 10 MG TABLET GT (21:59)
[2024-09-27 22:00] VITALS: BP 127/84; PULSE 98
[2024-09-27] MEDS: TRAMADOL 50 MG TABLET 25 MG GT (22:03)
[2024-09-28] VITALS (7 sets, daily range): BP systolic 122–129; BP diastolic 74–81; PULSE 83–114; RESP 17–20; TEMP 36.2–36.9; O2SAT 97–99; BMI 16.2; BMI 20.1
[2024-09-28] MEDS: TRAMADOL 50 MG TABLET 25 MG GT ×4 (04:05→23:50)
[2024-09-28] MEDS: MIDODRINE 5 MG TABLET GT ×3 (05:39→21:17)
[2024-09-28] MEDS: METOCLOPRAMIDE 5 MG/5 ML 10 MG GT ×3 (05:40→21:18)
[2024-09-28] MEDS: METOPROLOL 50 MG TABLET 25 MG GT ×2 (09:56→21:17)
[2024-09-28] MEDS: FLUCONAZOLE 200 MG TABLET 1200 MG GT (09:56)
[2024-09-28] MEDS: levETIRAcetam 100 MG/ML SOLUTION 500 MG GT ×2 (09:56→21:15)
[2024-09-28] MEDS: CHOLECALCIFEROL (VITAMIN D3) 25 MCG TABLET 50 MCG PO (09:56)
[2024-09-28] MEDS: GABAPENTIN 100 MG CAPSULE 200 MG GT ×2 (09:56→21:13)
[2024-09-28] MEDS: ASCORBIC ACID 500 MG TABLET GT (09:56)
[2024-09-28] MEDS: ENOXAPARIN SODIUM 40 MG/0.4 ML SYRINGE SC (09:57)
[2024-09-28] MEDS: MULTIVITAMIN W MINERALS 1 EACH TABLET GT (09:57)
[2024-09-28] MEDS: ATORVASTATIN 10 MG TABLET GT (21:13)
[2024-09-28] MEDS: DOCUSATE GT (21:17)
[2024-09-28] MEDS: [UNRECOGNIZED DRUG - OTHER] GT (21:17)
[2024-09-28] MEDS: MAGNESIUM HYDROXIDE 30 ML ORAL SUSP ML GT (21:19)
[2024-09-29] VITALS (8 sets, daily range): BP systolic 112–136; BP diastolic 70–78; PULSE 11–114; RESP 18–26; TEMP 36.5–36.8; O2SAT 97–99
[2024-09-29] MEDS: METOCLOPRAMIDE 5 MG/5 ML 10 MG GT ×2 (05:11→13:45)
[2024-09-29] MEDS: MIDODRINE 5 MG TABLET GT ×3 (05:11→21:08)
[2024-09-29] MEDS: ASCORBIC ACID 500 MG TABLET GT (09:05)
[2024-09-29] MEDS: CHOLECALCIFEROL (VITAMIN D3) 25 MCG TABLET 50 MCG PO (09:06)
[2024-09-29] MEDS: ENOXAPARIN SODIUM 40 MG/0.4 ML SYRINGE SC (09:06)
[2024-09-29] MEDS: GABAPENTIN 100 MG CAPSULE 200 MG GT ×2 (09:06→21:05)
[2024-09-29] MEDS: FLUCONAZOLE 200 MG TABLET 1200 MG GT (09:06)
[2024-09-29] MEDS: levETIRAcetam 100 MG/ML SOLUTION 500 MG GT ×2 (09:07→21:06)
[2024-09-29] MEDS: METOPROLOL 50 MG TABLET 25 MG GT ×2 (09:07→22:07)
[2024-09-29] MEDS: MULTIVITAMIN W MINERALS 1 EACH TABLET GT (09:08)
[2024-09-29] MEDS: TRAMADOL 50 MG TABLET 25 MG GT (11:28)
--- NOTE | 2024-09-29 12:25 | PC.SS ---
This SSD provided resident with a dry erase board for communication, per his request. Resident was having a hard time gripping an ink pen during admission packet. CO's stated they would try to use it with resident but both were unsure resident would be able to use the board. Resident has a communication board with pictures in his room for his use.
--- NOTE | 2024-09-29 12:29 | PC.SS ---
This SSD followed up with resident regarding confucianist, resident said he does not wish to list confucianist at this time and said he would not want spiritual care visits from balance and hairspring assembler as of now.
[2024-09-29] MEDS: MAGNESIUM HYDROXIDE 30 ML ORAL SUSP ML GT (14:00)
[2024-09-29] MEDS: ACETAMINOPHEN 325 MG TABLET 650 MG GT (17:45)
[2024-09-29] MEDS: ATORVASTATIN 10 MG TABLET GT (21:03)
[2024-09-29] MEDS: DOCUSATE GT (21:08)
[2024-09-29] MEDS: [UNRECOGNIZED DRUG - OTHER] GT (21:08)
[2024-09-30] MEDS: ACETAMINOPHEN 325 MG TABLET 650 MG GT ×2 (02:49→14:30)
[2024-09-30 06:00] VITALS: PULSE 102; RESP 20; TEMP 36.8; O2SAT 99
[2024-09-30 07:24] VITALS: PULSE 104; RESP 18; O2SAT 95
[2024-09-30 07:55] LABS: Coccid Serology, CF (UCD)* See Sep Rpt
[2024-09-30] MEDS: SCOPOLAMINE 1.5 MG TD (09:15)
[2024-09-30] MEDS: ASCORBIC ACID 500 MG TABLET GT (09:15)
[2024-09-30] MEDS: CHOLECALCIFEROL (VITAMIN D3) 25 MCG TABLET 50 MCG PO (09:16)
[2024-09-30] MEDS: ENOXAPARIN SODIUM 40 MG/0.4 ML SYRINGE SC (09:16)
[2024-09-30] MEDS: FLUCONAZOLE 200 MG TABLET 1200 MG GT (09:17)
[2024-09-30] MEDS: GABAPENTIN 100 MG CAPSULE 200 MG GT ×2 (09:17→21:06)
[2024-09-30 09:18] VITALS: BP 136/79; PULSE 100
[2024-09-30] MEDS: levETIRAcetam 100 MG/ML SOLUTION 500 MG GT ×2 (09:18→21:06)
[2024-09-30] MEDS: METOPROLOL 50 MG TABLET 25 MG GT ×2 (09:18→21:06)
[2024-09-30] MEDS: MULTIVITAMIN W MINERALS 1 EACH TABLET GT (09:23)
[2024-09-30 12:00] VITALS: BP 142/81; PULSE 92; RESP 20; TEMP 36.4
[2024-09-30] MEDS: METOCLOPRAMIDE 5 MG/5 ML 10 MG GT ×2 (14:17→22:05)
[2024-09-30 18:00] VITALS: BP 136/75; PULSE 99; RESP 20; TEMP 37.1; O2SAT 97
--- NOTE | 2024-09-30 19:46 | PC.NURSE ---
Resident is awake , 12:00 vital signs taken by one of the Students, vitals signs abnormal.Temperature 94.3-46 20, B/P 102/54. Reported to charge nurse, continue to take temperature, remains abnormal. Labs were ordered.
[2024-09-30] MEDS: DOCUSATE GT (21:05)
[2024-09-30] MEDS: [UNRECOGNIZED DRUG - OTHER] GT (21:05)
[2024-09-30 21:06] VITALS: BP 134/80; PULSE 97
[2024-09-30] MEDS: ATORVASTATIN 10 MG TABLET GT (21:07)
[2024-10-01] VITALS (8 sets, daily range): BP systolic 113–145; BP diastolic 62–82; PULSE 74–108; RESP 17–27; TEMP 36.7–36.9; O2SAT 97–98
[2024-10-01] MEDS: METOCLOPRAMIDE 5 MG/5 ML 10 MG GT ×3 (05:32→21:30)
[2024-10-01] MEDS: ACETAMINOPHEN 325 MG TABLET 650 MG GT (07:37)
[2024-10-01] MEDS: FLUCONAZOLE 200 MG TABLET 1200 MG GT (09:51)
[2024-10-01] MEDS: ASCORBIC ACID 500 MG TABLET GT (09:51)
[2024-10-01] MEDS: ENOXAPARIN SODIUM 40 MG/0.4 ML SYRINGE SC (09:51)
[2024-10-01] MEDS: CHOLECALCIFEROL (VITAMIN D3) 25 MCG TABLET 50 MCG PO (09:51)
[2024-10-01] MEDS: MULTIVITAMIN W MINERALS 1 EACH TABLET GT (09:52)
[2024-10-01] MEDS: METOPROLOL 50 MG TABLET 25 MG GT ×2 (09:52→21:31)
[2024-10-01] MEDS: levETIRAcetam 100 MG/ML SOLUTION 500 MG GT ×2 (09:52→21:31)
[2024-10-01] MEDS: GABAPENTIN 100 MG CAPSULE 200 MG GT ×2 (09:52→21:31)
[2024-10-01] MEDS: MIDODRINE 5 MG TABLET GT (13:31)
[2024-10-01] MEDS: [UNRECOGNIZED DRUG - OTHER] GT (21:30)
[2024-10-01] MEDS: DOCUSATE GT (21:30)
[2024-10-01] MEDS: ATORVASTATIN 10 MG TABLET GT (21:31)
--- NOTE | 2024-10-01 23:02 | PD.SAPROG ---
Progress Note - SubAcute DIAGNOSIS (1) Chronic respiratory failure: Status: Chronic (2) Disseminated coccidioidomycosis: Status: Chronic (3) Hydrocephalus: Status: Chronic (4) Ventriculo-peritoneal shunt status: Status: Chronic (5) Quadriplegia: Status: Chronic (6) G tube feedings: Status: Chronic (7) Tracheostomy in place: Status: Chronic OBJECTIVE Most recent vital signs: Last Vital Signs Temp 98.4 F 10/01/24 18:00 Pulse 108 H 10/01/24 21:31 Resp 20 10/01/24 20:47 BP 134/82 H 10/01/24 21:31 Pulse Ox 97 10/01/24 20:47 O2 Del Method Blow-by 09/30/24 18:00 O2 Flow Rate 6 10/01/24 20:47 FiO2 28 10/01/24 20:47 Speech:: mouths words and appropriate Answers questions:: yes Respiratory:: lungs clear and shallow breathing Cardiovascular: RRR Abdomen: soft Tracheostomy:: to blow by Feeding per:: G tube Complaints:: none ASSESSMENT & PLAN Assessment: Pt is a inmate admitted to [facility] on 09/14/24 for compensation and benefits advisor care with : Chronic disseminated Cocci involving 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 Continued on ongoing treatment which is reviewed from time to time Denies any pain/ headaches and remains amiable. VSS. After swallow evaluation pt on some puree diet and doing well. Speech therapist to evaluate if PO intake can be advanced. No new issues. Plan: Current treatment reviewed and continued
[2024-10-02] VITALS (7 sets, daily range): BP systolic 117–139; BP diastolic 70–82; PULSE 77–108; RESP 17–20; TEMP 36.3–36.6; O2SAT 97–99
[2024-10-02] MEDS: METOCLOPRAMIDE 5 MG/5 ML 10 MG GT ×3 (05:33→21:55)
[2024-10-02] MEDS: MIDODRINE 5 MG TABLET GT ×2 (05:33→21:53)
[2024-10-02] MEDS: ASCORBIC ACID 500 MG TABLET GT (09:07)
[2024-10-02] MEDS: ENOXAPARIN SODIUM 40 MG/0.4 ML SYRINGE SC (09:08)
[2024-10-02] MEDS: GABAPENTIN 100 MG CAPSULE 200 MG GT ×2 (09:08→21:50)
[2024-10-02] MEDS: CHOLECALCIFEROL (VITAMIN D3) 25 MCG TABLET 50 MCG PO (09:08)
[2024-10-02] MEDS: FLUCONAZOLE 200 MG TABLET 1200 MG GT (09:08)
[2024-10-02] MEDS: levETIRAcetam 100 MG/ML SOLUTION 500 MG GT ×2 (09:09→21:50)
[2024-10-02] MEDS: METOPROLOL 50 MG TABLET 25 MG GT ×2 (09:09→21:53)
[2024-10-02] MEDS: MULTIVITAMIN W MINERALS 1 EACH TABLET GT (09:10)
--- NOTE | 2024-10-02 16:05 | PC.SS ---
Resident is on blow by with trach in place, he continues to have 2 CO's at bedside. Resident is pleasant and would like to talk but has absence of speech. Resident accepts all staff interventions and will continue to be monitored for changes in mood and behavior.
[2024-10-02] MEDS: ATORVASTATIN 10 MG TABLET GT (21:49)
[2024-10-02] MEDS: DOCUSATE GT (21:55)
[2024-10-02] MEDS: ACETAMINOPHEN 325 MG TABLET 650 MG GT (21:55)
[2024-10-02] MEDS: [UNRECOGNIZED DRUG - OTHER] GT (21:55)
[2024-10-03] VITALS: BP 152/84; PULSE 84; RESP 20; TEMP 36.3
[2024-10-03] MEDS: TRAMADOL 50 MG TABLET 25 MG GT ×2 (01:05→14:42)
[2024-10-03] MEDS: METOCLOPRAMIDE 5 MG/5 ML 10 MG GT ×3 (05:34→21:44)
[2024-10-03] MEDS: MIDODRINE 5 MG TABLET GT ×3 (05:34→21:43)
[2024-10-03 06:00] VITALS: BP 145/80; PULSE 90; RESP 20; TEMP 36.3; O2SAT 97
[2024-10-03 06:57] VITALS: PULSE 74; RESP 18; O2SAT 98
[2024-10-03 08:39] VITALS: BP 128/77; PULSE 98
[2024-10-03] MEDS: ASCORBIC ACID 500 MG TABLET GT (08:39)
[2024-10-03] MEDS: GABAPENTIN 100 MG CAPSULE 200 MG GT ×2 (08:39→21:41)
[2024-10-03] MEDS: FLUCONAZOLE 200 MG TABLET 1200 MG GT (08:39)
[2024-10-03] MEDS: MULTIVITAMIN W MINERALS 1 EACH TABLET GT (08:39)
[2024-10-03] MEDS: ENOXAPARIN SODIUM 40 MG/0.4 ML SYRINGE SC (08:39)
[2024-10-03] MEDS: levETIRAcetam 100 MG/ML SOLUTION 500 MG GT ×2 (08:39→21:43)
[2024-10-03] MEDS: CHOLECALCIFEROL (VITAMIN D3) 25 MCG TABLET 50 MCG PO (08:39)
[2024-10-03] MEDS: METOPROLOL 50 MG TABLET 25 MG GT ×2 (08:39→21:43)
[2024-10-03] MEDS: SCOPOLAMINE 1.5 MG TD (08:40)
[2024-10-03] MEDS: ATORVASTATIN 10 MG TABLET GT (21:40)
[2024-10-03 21:43] VITALS: BP 129/82; PULSE 98
[2024-10-03] MEDS: [UNRECOGNIZED DRUG - OTHER] GT (21:44)
[2024-10-03] MEDS: DOCUSATE GT (21:44)
[2024-10-04] VITALS: BP 149/83; PULSE 76; RESP 18; TEMP 36.1
[2024-10-04] MEDS: METOCLOPRAMIDE 5 MG/5 ML 10 MG GT ×3 (05:35→21:20)
[2024-10-04] MEDS: MIDODRINE 5 MG TABLET GT (05:35)
[2024-10-04 05:44] VITALS: BP 141/86; PULSE 88; RESP 18; TEMP 36.5
[2024-10-04 07:01] VITALS: PULSE 72; RESP 18; O2SAT 98
[2024-10-04] MEDS: ASCORBIC ACID 500 MG TABLET GT (08:01)
[2024-10-04] MEDS: CHOLECALCIFEROL (VITAMIN D3) 25 MCG TABLET 50 MCG PO (08:01)
[2024-10-04] MEDS: ENOXAPARIN SODIUM 40 MG/0.4 ML SYRINGE SC (08:02)
[2024-10-04] MEDS: GABAPENTIN 100 MG CAPSULE 200 MG GT ×2 (08:02→21:19)
[2024-10-04] MEDS: FLUCONAZOLE 200 MG TABLET 1200 MG GT (08:02)
[2024-10-04 08:03] VITALS: BP 143/79; PULSE 85
[2024-10-04] MEDS: METOPROLOL 50 MG TABLET 25 MG GT ×2 (08:03→21:19)
[2024-10-04] MEDS: levETIRAcetam 100 MG/ML SOLUTION 500 MG GT ×2 (08:03→21:19)
[2024-10-04] MEDS: MULTIVITAMIN W MINERALS 1 EACH TABLET GT (08:04)
[2024-10-04 19:25] VITALS: PULSE 111; RESP 18; O2SAT 96
[2024-10-04 21:19] VITALS: BP 131/75; PULSE 111
[2024-10-04] MEDS: ATORVASTATIN 10 MG TABLET GT (21:19)
[2024-10-04] MEDS: [UNRECOGNIZED DRUG - OTHER] GT (21:20)
[2024-10-04] MEDS: DOCUSATE GT (21:20)
[2024-10-04] MEDS: ACETAMINOPHEN 325 MG TABLET 650 MG GT (21:21)
[2024-10-05] VITALS (8 sets, daily range): BP systolic 124–149; BP diastolic 78–88; PULSE 71–116; RESP 18–22; TEMP 36–36.7; O2SAT 97–98; BMI 20.1
[2024-10-05] MEDS: MIDODRINE 5 MG TABLET GT ×2 (05:45→13:30)
[2024-10-05] MEDS: METOCLOPRAMIDE 5 MG/5 ML 10 MG GT ×3 (05:46→21:32)
[2024-10-05] MEDS: ENOXAPARIN SODIUM 40 MG/0.4 ML SYRINGE SC (09:42)
[2024-10-05] MEDS: TRAMADOL 50 MG TABLET 25 MG GT ×2 (09:45→16:50)
[2024-10-05] MEDS: ASCORBIC ACID 500 MG TABLET GT (09:46)
[2024-10-05] MEDS: CHOLECALCIFEROL (VITAMIN D3) 25 MCG TABLET 50 MCG PO (09:47)
[2024-10-05] MEDS: FLUCONAZOLE 200 MG TABLET 1200 MG GT (09:47)
[2024-10-05] MEDS: METOPROLOL 50 MG TABLET 25 MG GT ×2 (09:47→21:29)
[2024-10-05] MEDS: GABAPENTIN 100 MG CAPSULE 200 MG GT ×2 (09:47→21:28)
[2024-10-05] MEDS: levETIRAcetam 100 MG/ML SOLUTION 500 MG GT ×2 (09:47→21:29)
[2024-10-05] MEDS: MULTIVITAMIN W MINERALS 1 EACH TABLET GT (09:48)
[2024-10-05] MEDS: ATORVASTATIN 10 MG TABLET GT (21:28)
[2024-10-05] MEDS: DOCUSATE GT (21:32)
[2024-10-05] MEDS: [UNRECOGNIZED DRUG - OTHER] GT (21:32)
--- NOTE | 2024-10-05 21:57 | ESPR_ITS ---
Progress Note - SubAcute DIAGNOSIS (1) Chronic respiratory failure: Status: Chronic (2) Disseminated coccidioidomycosis: Status: Chronic (3) Hydrocephalus: Status: Chronic (4) Ventriculo-peritoneal shunt status: Status: Chronic (5) Quadriplegia: Status: Chronic (6) G tube feedings: Status: Chronic (7) Tracheostomy in place: Status: Chronic OBJECTIVE Most recent vital signs: Last Vital Signs Temp 96.9 F 10/05/24 18:00 Pulse 77 10/05/24 21:29 Resp 18 10/05/24 19:47 BP 130/78 10/05/24 21:29 Pulse Ox 98 10/05/24 19:47 O2 Del Method Blow-by 10/05/24 18:00 O2 Flow Rate 6 10/05/24 19:47 FiO2 10/05/24 19:47 Speech:: mouths words and appropriate Answers questions:: yes Respiratory:: lungs clear and shallow breathing Cardiovascular: RRR Abdomen: soft Tracheostomy:: to blow by Feeding per:: G tube Complaints:: none ASSESSMENT & PLAN Assessment: Pt is a inmate admitted to [facility] on 09/14/24 for correction care with : Chronic disseminated Cocci involving 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 Continued on ongoing treatment which is reviewed from time to time Denies any pain/ headaches and remains amiable. . After swallow evaluation pt on some puree diet and doing well. Speech therapist to evaluate if PO intake can be advanced. No new issues. VSS Plan: Current treatment reviewed and continued
--- NOTE | 2024-10-05 21:58 | ESPR_ITS ---
Progress Note - SubAcute DIAGNOSIS (1) Chronic respiratory failure: Status: Chronic (2) Disseminated coccidioidomycosis: Status: Chronic (3) Hydrocephalus: Status: Chronic (4) Ventriculo-peritoneal shunt status: Status: Chronic (5) Quadriplegia: Status: Chronic (6) G tube feedings: Status: Chronic (7) Tracheostomy in place: Status: Chronic OBJECTIVE Most recent vital signs: Last Vital Signs Temp 96.9 F 10/05/24 18:00 Pulse 77 10/05/24 21:29 Resp 18 10/05/24 19:47 BP 130/78 10/05/24 21:29 Pulse Ox 98 10/05/24 19:47 O2 Del Method Blow-by 10/05/24 18:00 O2 Flow Rate 6 10/05/24 19:47 FiO2 10/05/24 19:47 Speech:: mouths words and appropriate Answers questions:: yes Respiratory:: lungs clear and shallow breathing Cardiovascular: RRR Abdomen: soft Tracheostomy:: to blow by Feeding per:: G tube Complaints:: none ASSESSMENT & PLAN Assessment: Pt is a inmate admitted to [facility] on 09/14/24 for chcf care with : Chronic disseminated Cocci involving 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 Continued on ongoing treatment which is reviewed from time to time Denies any pain/ headaches and remains amiable. . After swallow evaluation pt on some puree diet and doing well. Speech therapist to evaluate if PO intake can be advanced. No new issues. VSS Plan: Current treatment reviewed and continued
[2024-10-06] VITALS (7 sets, daily range): BP systolic 110–157; BP diastolic 66–87; PULSE 74–118; RESP 16–23; TEMP 36.1–36.4; O2SAT 97–98
[2024-10-06] MEDS: TRAMADOL 50 MG TABLET 25 MG GT (04:10)
[2024-10-06] MEDS: METOCLOPRAMIDE 5 MG/5 ML 10 MG GT ×3 (05:35→21:01)
[2024-10-06] MEDS: ASCORBIC ACID 500 MG TABLET GT (09:24)
[2024-10-06] MEDS: SCOPOLAMINE 1.5 MG TD (09:24)
[2024-10-06] MEDS: CHOLECALCIFEROL (VITAMIN D3) 25 MCG TABLET 50 MCG PO (09:25)
[2024-10-06] MEDS: ENOXAPARIN SODIUM 40 MG/0.4 ML SYRINGE SC (09:26)
[2024-10-06] MEDS: GABAPENTIN 100 MG CAPSULE 200 MG GT ×2 (09:26→20:58)
[2024-10-06] MEDS: FLUCONAZOLE 200 MG TABLET 1200 MG GT (09:26)
[2024-10-06] MEDS: MULTIVITAMIN W MINERALS 1 EACH TABLET GT (09:27)
[2024-10-06] MEDS: levETIRAcetam 100 MG/ML SOLUTION 500 MG GT ×2 (09:27→20:58)
[2024-10-06] MEDS: METOPROLOL 50 MG TABLET 25 MG GT ×2 (09:27→20:59)
[2024-10-06] MEDS: ACETAMINOPHEN 325 MG TABLET 650 MG GT (14:20)
[2024-10-06] MEDS: ATORVASTATIN 10 MG TABLET GT (20:57)
[2024-10-06] MEDS: DOCUSATE GT (20:59)
[2024-10-06] MEDS: [UNRECOGNIZED DRUG - OTHER] GT (20:59)
[2024-10-07] VITALS: BP 139/75; PULSE 92; RESP 18; TEMP 36.3; O2SAT 98
[2024-10-07 02:08] VITALS: PULSE 95; RESP 18; O2SAT 98
[2024-10-07] MEDS: METOCLOPRAMIDE 5 MG/5 ML 10 MG GT (05:49)
[2024-10-07 05:53] VITALS: BP 137/78; PULSE 97; RESP 18; TEMP 35.9; O2SAT 94
[2024-10-07 07:35] VITALS: PULSE 99; RESP 18; O2SAT 94
[2024-10-07] MEDS: TRAMADOL 50 MG TABLET 25 MG GT ×2 (08:05→21:04)
[2024-10-07] MEDS: ASCORBIC ACID 500 MG TABLET GT (08:13)
[2024-10-07] MEDS: FLUCONAZOLE 200 MG TABLET 1200 MG GT (08:14)
[2024-10-07] MEDS: CHOLECALCIFEROL (VITAMIN D3) 25 MCG TABLET 50 MCG PO (08:14)
[2024-10-07] MEDS: levETIRAcetam 100 MG/ML SOLUTION 500 MG GT ×2 (08:16→21:02)
[2024-10-07] MEDS: GABAPENTIN 100 MG CAPSULE 200 MG GT ×2 (08:16→21:02)
[2024-10-07 08:18] VITALS: BP 173/83; PULSE 102
[2024-10-07] MEDS: METOPROLOL 50 MG TABLET 25 MG GT ×2 (08:18→21:03)
[2024-10-07] MEDS: ENOXAPARIN SODIUM 40 MG/0.4 ML SYRINGE SC (08:18)
[2024-10-07] MEDS: MULTIVITAMIN W MINERALS 1 EACH TABLET GT (08:18)
[2024-10-07] MEDS: ATORVASTATIN 10 MG TABLET GT (21:01)
[2024-10-07 21:03] VITALS: BP 134/79; PULSE 94
[2024-10-07] MEDS: [UNRECOGNIZED DRUG - OTHER] GT (21:03)
[2024-10-07] MEDS: DOCUSATE GT (21:03)
--- NOTE | 2024-10-07 23:00 | ESPR_ITS ---
Progress Note - SubAcute DIAGNOSIS (1) Chronic respiratory failure: Status: Chronic (2) Disseminated coccidioidomycosis: Status: Chronic (3) Hydrocephalus: Status: Chronic (4) Ventriculo-peritoneal shunt status: Status: Chronic (5) Quadriplegia: Status: Chronic (6) G tube feedings: Status: Chronic (7) Tracheostomy in place: Status: Chronic OBJECTIVE Most recent vital signs: Last Vital Signs Temp 96.7 F L 10/07/24 05:53 Pulse 94 10/07/24 21:03 Resp 18 10/07/24 07:35 BP 134/79 H 10/07/24 21:03 Pulse Ox 94 L 10/07/24 07:35 O2 Del Method Blow-by 10/07/24 05:53 O2 Flow Rate 6 10/07/24 07:35 FiO2 28 10/07/24 07:35 Speech:: mouths words and appropriate Answers questions:: yes Respiratory:: lungs clear and shallow breathing Cardiovascular: RRR Abdomen: soft Tracheostomy:: to blow by Feeding per:: G tube Complaints:: none ASSESSMENT & PLAN Assessment: Pt is a inmate admitted to [facility] on 09/14/24 for prison care with : Chronic disseminated Cocci involving 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 Continued on ongoing treatment which is reviewed from time to time Denies any pain/ headaches and remains amiable. . After swallow evaluation pt on some puree diet and doing well. Speech therapist to evaluate if PO intake can be advanced. No new issues. VSS Plan: Current treatment reviewed and continued
[2024-10-08] VITALS (8 sets, daily range): BP systolic 130–162; BP diastolic 75–89; PULSE 79–114; RESP 17–22; TEMP 36.2–37.2; O2SAT 94–98
[2024-10-08 08:42] LABS: Alanine Aminotransferase 8 U/L (10-49); Albumin, Serum 3.8 gm/dL (3.5-5.0); Albumin/Globulin Ratio 1.2 (1.2-2.2); Alkaline Phosphatase 153 U/L (46-116); Anion Gap 8 (7-16); Aspartate Amino Transferase 18 U/L (0-34); BUN/Creatinine Ratio 45 Ratio (12-20); Bilirubin,Total < 0.2 mg/dL (0.3-1.2); Blood Urea Nitrogen 18 mg/dL (9-23); Calcium 11.2 mg/dL (8.3-10.6); Calcium (Corrected) 11.4 mg/dL (8.5-10.1); Carbon Dioxide 38.1 mMol/L (20.0-31.0); Chloride 102 mMol/L (98-107); Creatinine (Component) 0.4 mg/dL (0.6-1.3); Estimated Creatinine Clearance 171.9 mL/min (>60); Globulin 3.2 gm/dL (2.3-3.5); Glucose 104 mg/dL (74-106); Osmolality,Calculated 296 (275-295); Potassium 4.1 mMol/L (3.4-5.1); Sodium 148 mMol/L (136-145); eGFR > 60 See Note
[2024-10-08] MEDS: ASCORBIC ACID 500 MG TABLET GT (08:52)
[2024-10-08] MEDS: FLUCONAZOLE 200 MG TABLET 1200 MG GT (08:53)
[2024-10-08] MEDS: GABAPENTIN 100 MG CAPSULE 200 MG GT ×2 (08:53→20:51)
[2024-10-08] MEDS: CHOLECALCIFEROL (VITAMIN D3) 25 MCG TABLET 50 MCG PO (08:53)
[2024-10-08] MEDS: levETIRAcetam 100 MG/ML SOLUTION 500 MG GT ×2 (08:53→20:53)
[2024-10-08] MEDS: MULTIVITAMIN W MINERALS 1 EACH TABLET GT (08:53)
[2024-10-08] MEDS: METOPROLOL 50 MG TABLET 25 MG GT ×2 (08:53→20:53)
[2024-10-08] MEDS: ENOXAPARIN SODIUM 40 MG/0.4 ML SYRINGE SC (08:53)
[2024-10-08] MEDS: MIDODRINE 5 MG TABLET GT (13:03)
--- NOTE | 2024-10-08 13:26 | PC.LAC ---
Routine lab drawn today with sodium level of 148 , currently on 600 ml minimum flush PGT q shift, order received from Dr Jacobs to increase by 300 ml flush each shift.Repeat lab in 2 weeks to follow up sodium level
[2024-10-08] MEDS: METOCLOPRAMIDE 5 MG/5 ML 10 MG GT ×2 (14:03→21:00)
--- NOTE | 2024-10-08 14:40 | PC.SS ---
Resident is laying in bed with head of the bed elevated with call light placed with no signs of distress. Resident is on blow by with trach in place and GT for medication and nutrition. Resident is non verbal, with absence of speech. Resident tries to make needs known but hard to understand.Resident has no changes in care or condition and will remain in current care and will have all subacute care needs met by staff. This SSD will continue make daily contact and will monitor for changes in mood and behavior.
[2024-10-08] MEDS: ATORVASTATIN 10 MG TABLET GT (20:50)
[2024-10-08] MEDS: [UNRECOGNIZED DRUG - OTHER] GT (20:54)
[2024-10-08] MEDS: DOCUSATE GT (20:54)
[2024-10-08] MEDS: TRAMADOL 50 MG TABLET 25 MG GT (20:55)
[2024-10-09] VITALS (7 sets, daily range): BP systolic 101–151; BP diastolic 66–88; PULSE 80–108; RESP 18–20; TEMP 36.1–37.1; O2SAT 98
[2024-10-09] MEDS: METOCLOPRAMIDE 5 MG/5 ML 10 MG GT ×3 (05:20→21:58)
[2024-10-09] MEDS: TRAMADOL 50 MG TABLET 25 MG GT ×2 (06:07→14:28)
[2024-10-09] MEDS: SCOPOLAMINE 1.5 MG TD (09:04)
[2024-10-09] MEDS: levETIRAcetam 100 MG/ML SOLUTION 500 MG GT ×2 (09:04→21:52)
[2024-10-09] MEDS: FLUCONAZOLE 200 MG TABLET 1200 MG GT (09:04)
[2024-10-09] MEDS: CHOLECALCIFEROL (VITAMIN D3) 25 MCG TABLET 50 MCG PO (09:04)
[2024-10-09] MEDS: ASCORBIC ACID 500 MG TABLET GT (09:04)
[2024-10-09] MEDS: GABAPENTIN 100 MG CAPSULE 200 MG GT ×2 (09:04→21:51)
[2024-10-09] MEDS: METOPROLOL 50 MG TABLET 25 MG GT ×2 (09:05→21:52)
[2024-10-09] MEDS: MULTIVITAMIN W MINERALS 1 EACH TABLET GT (09:05)
[2024-10-09] MEDS: ATORVASTATIN 10 MG TABLET GT (21:51)
[2024-10-09] MEDS: DOCUSATE GT (21:58)
[2024-10-09] MEDS: [UNRECOGNIZED DRUG - OTHER] GT (21:58)
[2024-10-10] VITALS (7 sets, daily range): BP systolic 125–142; BP diastolic 75–90; PULSE 80–99; RESP 17–20; TEMP 36.8–37.6; O2SAT 97–98
--- NOTE | 2024-10-10 03:58 | PC.NURSE ---
Gave resident as ordered enoxaparin sodium 40mg due to unavailable on day shift.
[2024-10-10] MEDS: MIDODRINE 5 MG TABLET GT (05:31)
[2024-10-10] MEDS: METOCLOPRAMIDE 5 MG/5 ML 10 MG GT ×3 (05:32→21:29)
[2024-10-10] MEDS: ENOXAPARIN SODIUM 40 MG/0.4 ML SYRINGE SC (09:53)
[2024-10-10] MEDS: ASCORBIC ACID 500 MG TABLET GT (09:55)
[2024-10-10] MEDS: GABAPENTIN 100 MG CAPSULE 200 MG GT ×2 (09:55→20:21)
[2024-10-10] MEDS: FLUCONAZOLE 200 MG TABLET 1200 MG GT (09:55)
[2024-10-10] MEDS: levETIRAcetam 100 MG/ML SOLUTION 500 MG GT ×2 (09:55→20:23)
[2024-10-10] MEDS: CHOLECALCIFEROL (VITAMIN D3) 25 MCG TABLET 50 MCG PO (09:55)
[2024-10-10] MEDS: MULTIVITAMIN W MINERALS 1 EACH TABLET GT (09:56)
[2024-10-10] MEDS: METOPROLOL 50 MG TABLET 25 MG GT ×2 (09:56→20:23)
[2024-10-10] MEDS: ATORVASTATIN 10 MG TABLET GT (20:21)
[2024-10-10] MEDS: [UNRECOGNIZED DRUG - OTHER] GT (20:24)
[2024-10-10] MEDS: DOCUSATE GT (20:24)
[2024-10-10] MEDS: MAGNESIUM HYDROXIDE 30 ML ORAL SUSP ML GT (22:00)
[2024-10-11] VITALS (8 sets, daily range): BP systolic 122–133; BP diastolic 67–85; PULSE 85–118; RESP 18–68; TEMP 36.3–36.8; O2SAT 95–100
[2024-10-11] MEDS: METOCLOPRAMIDE 5 MG/5 ML 10 MG GT ×3 (05:11→21:29)
[2024-10-11] MEDS: ASCORBIC ACID 500 MG TABLET GT (09:14)
[2024-10-11] MEDS: ENOXAPARIN SODIUM 40 MG/0.4 ML SYRINGE SC (09:15)
[2024-10-11] MEDS: CHOLECALCIFEROL (VITAMIN D3) 25 MCG TABLET 50 MCG PO (09:15)
[2024-10-11] MEDS: FLUCONAZOLE 200 MG TABLET 1200 MG GT (09:16)
[2024-10-11] MEDS: GABAPENTIN 100 MG CAPSULE 200 MG GT ×2 (09:16→20:19)
[2024-10-11] MEDS: METOPROLOL 50 MG TABLET 25 MG GT ×2 (09:17→20:20)
[2024-10-11] MEDS: levETIRAcetam 100 MG/ML SOLUTION 500 MG GT ×2 (09:17→20:20)
[2024-10-11] MEDS: MULTIVITAMIN W MINERALS 1 EACH TABLET GT (09:18)
[2024-10-11] MEDS: ACETAMINOPHEN 325 MG TABLET 650 MG GT (09:19)
--- NOTE | 2024-10-11 13:00 | PD.SAPROG ---
Progress Note - SubAcute DIAGNOSIS (1) Chronic respiratory failure: Status: Chronic (2) Disseminated coccidioidomycosis: Status: Chronic (3) Hydrocephalus: Status: Chronic (4) Ventriculo-peritoneal shunt status: Status: Chronic (5) Quadriplegia: Status: Chronic (6) G tube feedings: Status: Chronic (7) Tracheostomy in place: Status: Chronic OBJECTIVE Most recent vital signs: Last Vital Signs Temp 98.9 F 10/15/24 17:23 Pulse 109 H 10/15/24 20:25 Resp 18 10/15/24 19:07 BP 125/76 10/15/24 20:25 Pulse Ox 96 10/15/24 19:07 O2 Del Method Blow-by 10/15/24 05:08 O2 Flow Rate 6 10/15/24 19:07 FiO2 28 10/15/24 19:07 Speech:: mouths words and appropriate Answers questions:: yes Respiratory:: lungs clear and shallow breathing Cardiovascular: RRR Abdomen: soft Tracheostomy:: to blow by Feeding per:: G tube Complaints:: none ASSESSMENT & PLAN Assessment: Pt is a inmate admitted to [facility] on 09/14/24 for chcf care with : Chronic disseminated Cocci involving 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 Continued on ongoing treatment which is reviewed from time to time Denies any pain/ headaches and remains amiable. . After swallow evaluation pt on some puree diet and doing well. Speech therapist to evaluate if PO intake can be advanced. No new issues. VSS Plan: Current treatment reviewed and continued
[2024-10-11] MEDS: MIDODRINE 5 MG TABLET GT ×2 (14:02→21:30)
[2024-10-11] MEDS: ATORVASTATIN 10 MG TABLET GT (20:19)
[2024-10-11] MEDS: DOCUSATE GT (20:21)
[2024-10-11] MEDS: [UNRECOGNIZED DRUG - OTHER] GT (20:21)
[2024-10-12] VITALS (8 sets, daily range): BP systolic 119–151; BP diastolic 75–94; PULSE 80–109; RESP 18–22; TEMP 36.8–36.9; O2SAT 95–99
[2024-10-12] MEDS: MIDODRINE 5 MG TABLET GT ×2 (05:18→21:00)
[2024-10-12] MEDS: METOCLOPRAMIDE 5 MG/5 ML 10 MG GT ×2 (05:18→21:00)
[2024-10-12] MEDS: ENOXAPARIN SODIUM 40 MG/0.4 ML SYRINGE SC (09:44)
[2024-10-12] MEDS: MULTIVITAMIN W MINERALS 1 EACH TABLET GT (09:45)
[2024-10-12] MEDS: FLUCONAZOLE 200 MG TABLET 1200 MG GT (09:45)
[2024-10-12] MEDS: METOPROLOL 50 MG TABLET 25 MG GT ×2 (09:45→20:55)
[2024-10-12] MEDS: ASCORBIC ACID 500 MG TABLET GT (09:45)
[2024-10-12] MEDS: CHOLECALCIFEROL (VITAMIN D3) 25 MCG TABLET 50 MCG PO (09:45)
[2024-10-12] MEDS: GABAPENTIN 100 MG CAPSULE 200 MG GT ×2 (09:46→20:54)
[2024-10-12] MEDS: levETIRAcetam 100 MG/ML SOLUTION 500 MG GT ×2 (09:46→20:55)
[2024-10-12] MEDS: SCOPOLAMINE 1.5 MG TD (09:48)
[2024-10-12] MEDS: TRAMADOL 50 MG TABLET 25 MG GT (14:30)
[2024-10-12] MEDS: ATORVASTATIN 10 MG TABLET GT (20:54)
[2024-10-12] MEDS: DOCUSATE GT (20:55)
[2024-10-12] MEDS: [UNRECOGNIZED DRUG - OTHER] GT (20:55)
[2024-10-13] VITALS (8 sets, daily range): BP systolic 117–137; BP diastolic 76–85; PULSE 82–104; RESP 18–24; TEMP 36.8–37.6; O2SAT 96–99; BMI 20.4
[2024-10-13] MEDS: METOCLOPRAMIDE 5 MG/5 ML 10 MG GT ×3 (05:18→21:05)
[2024-10-13] MEDS: TRAMADOL 50 MG TABLET 25 MG GT ×3 (08:33→20:56)
[2024-10-13] MEDS: CHOLECALCIFEROL (VITAMIN D3) 25 MCG TABLET 50 MCG PO (08:34)
[2024-10-13] MEDS: ASCORBIC ACID 500 MG TABLET GT (08:34)
[2024-10-13] MEDS: METOPROLOL 50 MG TABLET 25 MG GT ×2 (08:35→20:55)
[2024-10-13] MEDS: MULTIVITAMIN W MINERALS 1 EACH TABLET GT (08:35)
[2024-10-13] MEDS: levETIRAcetam 100 MG/ML SOLUTION 500 MG GT ×2 (08:35→20:53)
[2024-10-13] MEDS: FLUCONAZOLE 200 MG TABLET 1200 MG GT (08:35)
[2024-10-13] MEDS: GABAPENTIN 100 MG CAPSULE 200 MG GT ×2 (08:35→20:53)
[2024-10-13] MEDS: ENOXAPARIN SODIUM 40 MG/0.4 ML SYRINGE SC (08:41)
[2024-10-13] MEDS: MIDODRINE 5 MG TABLET GT ×2 (13:21→21:05)
--- NOTE | 2024-10-13 16:57 | PC.NURSE ---
Dr. Jacobs gave new order for Speech Eval for passi jos valve for communication.
[2024-10-13] MEDS: ATORVASTATIN 10 MG TABLET GT (20:53)
[2024-10-13] MEDS: DOCUSATE GT (20:55)
[2024-10-13] MEDS: [UNRECOGNIZED DRUG - OTHER] GT (20:55)
[2024-10-13] MEDS: MAGNESIUM HYDROXIDE 30 ML ORAL SUSP ML GT (20:56)
[2024-10-14] VITALS (7 sets, daily range): BP systolic 123–147; BP diastolic 80–93; PULSE 85–99; RESP 18–26; TEMP 36.6–36.8; O2SAT 97–98
[2024-10-14] MEDS: METOCLOPRAMIDE 5 MG/5 ML 10 MG GT ×3 (05:31→21:32)
[2024-10-14] MEDS: MIDODRINE 5 MG TABLET GT ×2 (05:31→21:33)
[2024-10-14] MEDS: ENOXAPARIN SODIUM 40 MG/0.4 ML SYRINGE SC (08:35)
[2024-10-14] MEDS: CHOLECALCIFEROL (VITAMIN D3) 25 MCG TABLET 50 MCG PO (09:53)
[2024-10-14] MEDS: ASCORBIC ACID 500 MG TABLET GT (09:53)
[2024-10-14] MEDS: FLUCONAZOLE 200 MG TABLET 1200 MG GT (09:53)
[2024-10-14] MEDS: GABAPENTIN 100 MG CAPSULE 200 MG GT ×2 (09:53→21:34)
[2024-10-14] MEDS: levETIRAcetam 100 MG/ML SOLUTION 500 MG GT ×2 (09:53→21:34)
[2024-10-14] MEDS: METOPROLOL 50 MG TABLET 25 MG GT ×2 (09:54→21:34)
[2024-10-14] MEDS: MULTIVITAMIN W MINERALS 1 EACH TABLET GT (09:54)
[2024-10-14] MEDS: ATORVASTATIN 10 MG TABLET GT (21:33)
[2024-10-14] MEDS: [UNRECOGNIZED DRUG - OTHER] GT (21:34)
[2024-10-14] MEDS: DOCUSATE GT (21:34)
[2024-10-15] VITALS (9 sets, daily range): BP systolic 125–154; BP diastolic 73–90; PULSE 74–109; RESP 16–20; TEMP 36.2–37.2; O2SAT 95–99
[2024-10-15] MEDS: ACETAMINOPHEN 325 MG TABLET 650 MG GT ×2 (01:20→14:30)
[2024-10-15] MEDS: METOCLOPRAMIDE 5 MG/5 ML 10 MG GT ×2 (05:10→14:29)
[2024-10-15] MEDS: MIDODRINE 5 MG TABLET GT ×3 (05:10→21:03)
[2024-10-15] MEDS: SCOPOLAMINE 1.5 MG TD (08:33)
[2024-10-15] MEDS: CHOLECALCIFEROL (VITAMIN D3) 25 MCG TABLET 50 MCG PO (08:34)
[2024-10-15] MEDS: GABAPENTIN 100 MG CAPSULE 200 MG GT ×2 (08:34→20:22)
[2024-10-15] MEDS: levETIRAcetam 100 MG/ML SOLUTION 500 MG GT ×2 (08:34→20:23)
[2024-10-15] MEDS: METOPROLOL 50 MG TABLET 25 MG GT ×2 (08:34→20:25)
[2024-10-15] MEDS: FLUCONAZOLE 200 MG TABLET 1200 MG GT (08:34)
[2024-10-15] MEDS: ENOXAPARIN SODIUM 40 MG/0.4 ML SYRINGE SC (08:34)
[2024-10-15] MEDS: ASCORBIC ACID 500 MG TABLET GT (08:34)
[2024-10-15] MEDS: MULTIVITAMIN W MINERALS 1 EACH TABLET GT (08:35)
--- NOTE | 2024-10-15 14:11 | PC.SS ---
Resident received visits from Dianna Gordon disability liaison officer, she came to inform resident he was officially released on compassionate care. This SSD spoke with resident and asked if he understood, he nodded his head yes. This SSD will continue to make contact with resident and offer emotional support as he will accept. Resident to remain in current care and continue to have all subacute care needs as he remains on blow by with trach in place.
[2024-10-15] MEDS: TRAMADOL 50 MG TABLET 25 MG GT (20:22)
[2024-10-15] MEDS: ATORVASTATIN 10 MG TABLET GT (20:22)
[2024-10-15] MEDS: DOCUSATE GT (20:25)
[2024-10-15] MEDS: [UNRECOGNIZED DRUG - OTHER] GT (20:25)
--- NOTE | 2024-10-15 22:22 | ESPR_ITS ---
Progress Note - SubAcute DIAGNOSIS (1) Chronic respiratory failure: Status: Chronic (2) Disseminated coccidioidomycosis: Status: Chronic (3) Hydrocephalus: Status: Chronic (4) Ventriculo-peritoneal shunt status: Status: Chronic (5) Quadriplegia: Status: Chronic (6) G tube feedings: Status: Chronic (7) Tracheostomy in place: Status: Chronic OBJECTIVE Most recent vital signs: Last Vital Signs Temp 98.9 F 10/15/24 17:23 Pulse 109 H 10/15/24 20:25 Resp 18 10/15/24 19:07 BP 125/76 10/15/24 20:25 Pulse Ox 96 10/15/24 19:07 O2 Del Method Blow-by 10/15/24 05:08 O2 Flow Rate 6 10/15/24 19:07 FiO2 28 10/15/24 19:07 Speech:: mouths words and appropriate Answers questions:: yes Respiratory:: lungs clear and shallow breathing Cardiovascular: RRR Abdomen: soft Tracheostomy:: to blow by Feeding per:: G tube Complaints:: none ASSESSMENT & PLAN Assessment: Pt is a inmate admitted to [facility] on 09/14/24 for [facility] care with : Chronic disseminated Cocci involving 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 Continued on ongoing treatment which is reviewed from time to time Denies any pain/ headaches and remains amiable. . After swallow evaluation pt on some puree diet and doing well. Speech therapist to evaluate if PO intake can be advanced. No new issues. VSS Plan: Current treatment reviewed and continued
[2024-10-16] VITALS: BP 132/83; PULSE 93; RESP 22; TEMP 36.7
[2024-10-16 06:00] VITALS: BP 138/86; PULSE 91; RESP 22; TEMP 36.6; O2SAT 96
[2024-10-16 06:49] VITALS: PULSE 79; RESP 18; O2SAT 97
[2024-10-16] MEDS: ENOXAPARIN SODIUM 40 MG/0.4 ML SYRINGE SC (09:03)
[2024-10-16 09:50] VITALS: BP 142/85; PULSE 92
[2024-10-16] MEDS: CHOLECALCIFEROL (VITAMIN D3) 25 MCG TABLET 50 MCG PO (09:50)
[2024-10-16] MEDS: METOPROLOL 50 MG TABLET 25 MG GT ×2 (09:50→20:53)
[2024-10-16] MEDS: FLUCONAZOLE 200 MG TABLET 1200 MG GT (09:50)
[2024-10-16] MEDS: ASCORBIC ACID 500 MG TABLET GT (09:50)
[2024-10-16] MEDS: GABAPENTIN 100 MG CAPSULE 200 MG GT ×2 (09:50→20:52)
[2024-10-16] MEDS: levETIRAcetam 100 MG/ML SOLUTION 500 MG GT ×2 (09:50→20:52)
[2024-10-16] MEDS: MULTIVITAMIN W MINERALS 1 EACH TABLET GT (09:50)
[2024-10-16] MEDS: ACETAMINOPHEN 325 MG TABLET 650 MG GT (09:50)
--- NOTE | 2024-10-16 10:48 | PC.SS ---
This SSD received call from resident father Tommy Sykes SR. who stated he lives in [place], [place]. He is requesting resident be moved to a facility closer to him as he would eventually like to be trained to care for him at home. This SSD informed Mr. Sykes resident would need to be notified and consulted before any information can be shared and if this is something he would like done. Mr. Sykes understood and said he would not have any help to care for him at home he went on to share he is a 71 year old man who has had 2 heart attacks. This SSD asked him if he was sure who would be able to care for his son who is total care, all alone. Mr. Sykes responded yes this SSD will update IDT of this request and will update resident.
--- NOTE | 2024-10-16 15:54 | PC.SS ---
As of this afternoon the last of the CO's has cleared the room and has left the building. Resident no longer in custody and not requiring CO's at bedside.
[2024-10-16 19:06] VITALS: PULSE 94; RESP 20; O2SAT 93
[2024-10-16] MEDS: ATORVASTATIN 10 MG TABLET GT (20:49)
[2024-10-16 20:53] VITALS: BP 130/76; PULSE 94
[2024-10-16] MEDS: [UNRECOGNIZED DRUG - OTHER] GT (20:53)
[2024-10-16] MEDS: DOCUSATE GT (20:53)
[2024-10-17] VITALS (8 sets, daily range): BP systolic 136–159; BP diastolic 59–86; PULSE 93–101; RESP 17–20; TEMP 36.4–36.9; O2SAT 96–97
[2024-10-17] MEDS: ASCORBIC ACID 500 MG TABLET GT (08:16)
[2024-10-17] MEDS: CHOLECALCIFEROL (VITAMIN D3) 25 MCG TABLET 50 MCG PO (08:17)
[2024-10-17] MEDS: FLUCONAZOLE 200 MG TABLET 1200 MG GT (08:18)
[2024-10-17] MEDS: GABAPENTIN 100 MG CAPSULE 200 MG GT ×2 (08:18→21:15)
[2024-10-17] MEDS: levETIRAcetam 100 MG/ML SOLUTION 500 MG GT ×2 (08:20→21:17)
[2024-10-17] MEDS: METOPROLOL 50 MG TABLET 25 MG GT ×2 (08:20→21:17)
[2024-10-17] MEDS: MULTIVITAMIN W MINERALS 1 EACH TABLET GT (08:21)
[2024-10-17] MEDS: ENOXAPARIN SODIUM 40 MG/0.4 ML SYRINGE SC (09:00)
[2024-10-17] MEDS: METOCLOPRAMIDE 5 MG/5 ML 10 MG GT (21:14)
[2024-10-17] MEDS: ATORVASTATIN 10 MG TABLET GT (21:15)
[2024-10-17] MEDS: [UNRECOGNIZED DRUG - OTHER] GT (21:17)
[2024-10-17] MEDS: DOCUSATE GT (21:17)
[2024-10-17] MEDS: TRAMADOL 50 MG TABLET 25 MG GT (21:18)
[2024-10-18] VITALS (8 sets, daily range): BP systolic 128–151; BP diastolic 69–88; PULSE 8–99; RESP 19–20; TEMP 36.5–36.9; O2SAT 92–97
[2024-10-18] MEDS: MIDODRINE 5 MG TABLET GT ×3 (05:44→21:11)
[2024-10-18] MEDS: METOCLOPRAMIDE 5 MG/5 ML 10 MG GT ×3 (05:44→21:11)
[2024-10-18] MEDS: SCOPOLAMINE 1.5 MG TD (09:00)
[2024-10-18] MEDS: METOPROLOL 50 MG TABLET 25 MG GT ×2 (09:00→21:14)
[2024-10-18] MEDS: ASCORBIC ACID 500 MG TABLET GT (09:20)
[2024-10-18] MEDS: ENOXAPARIN SODIUM 40 MG/0.4 ML SYRINGE SC (09:21)
[2024-10-18] MEDS: CHOLECALCIFEROL (VITAMIN D3) 25 MCG TABLET 50 MCG PO (09:21)
[2024-10-18] MEDS: levETIRAcetam 100 MG/ML SOLUTION 500 MG GT ×2 (09:22→21:12)
[2024-10-18] MEDS: GABAPENTIN 100 MG CAPSULE 200 MG GT ×2 (09:22→21:12)
[2024-10-18] MEDS: FLUCONAZOLE 200 MG TABLET 1200 MG GT (09:22)
[2024-10-18] MEDS: MULTIVITAMIN W MINERALS 1 EACH TABLET GT (09:22)
[2024-10-18] MEDS: ATORVASTATIN 10 MG TABLET GT (21:12)
[2024-10-18] MEDS: [UNRECOGNIZED DRUG - OTHER] GT (21:14)
[2024-10-18] MEDS: DOCUSATE GT (21:14)
[2024-10-19] VITALS (8 sets, daily range): BP systolic 123–161; BP diastolic 71–88; PULSE 66–103; RESP 17–20; TEMP 36.4–36.8; O2SAT 94–97
[2024-10-19] MEDS: METOCLOPRAMIDE 5 MG/5 ML 10 MG GT ×3 (05:31→21:00)
[2024-10-19] MEDS: MIDODRINE 5 MG TABLET GT (05:34)
[2024-10-19] MEDS: CHOLECALCIFEROL (VITAMIN D3) 25 MCG TABLET 50 MCG PO (08:36)
[2024-10-19] MEDS: ASCORBIC ACID 500 MG TABLET GT (08:36)
[2024-10-19] MEDS: GABAPENTIN 100 MG CAPSULE 200 MG GT ×2 (08:37→21:02)
[2024-10-19] MEDS: FLUCONAZOLE 200 MG TABLET 1200 MG GT (08:37)
[2024-10-19] MEDS: ENOXAPARIN SODIUM 40 MG/0.4 ML SYRINGE SC (08:37)
[2024-10-19] MEDS: MULTIVITAMIN W MINERALS 1 EACH TABLET GT (08:39)
[2024-10-19] MEDS: METOPROLOL 50 MG TABLET 25 MG GT ×2 (08:39→21:02)
[2024-10-19] MEDS: levETIRAcetam 100 MG/ML SOLUTION 500 MG GT ×2 (08:39→21:02)
[2024-10-19] MEDS: ACETAMINOPHEN 325 MG TABLET 650 MG GT ×2 (14:01→21:03)
--- NOTE | 2024-10-19 20:47 | PD.SAPROG ---
Progress Note - SubAcute DIAGNOSIS (1) Chronic respiratory failure: Status: Chronic (2) Disseminated coccidioidomycosis: Status: Chronic (3) Hydrocephalus: Status: Chronic (4) Ventriculo-peritoneal shunt status: Status: Chronic (5) Quadriplegia: Status: Chronic (6) G tube feedings: Status: Chronic (7) Tracheostomy in place: Status: Chronic OBJECTIVE Most recent vital signs: Last Vital Signs Temp 97.8 F 10/19/24 18:00 Pulse 91 10/19/24 18:35 Resp 20 10/19/24 18:35 BP 130/75 10/19/24 18:00 Pulse Ox 94 L 10/19/24 18:35 O2 Del Method Blow-by 10/19/24 18:00 O2 Flow Rate 6 10/19/24 18:35 FiO2 28 10/19/24 18:35 Speech:: mouths words and appropriate Answers questions:: yes Respiratory:: lungs clear and shallow breathing Cardiovascular: RRR Abdomen: soft Tracheostomy:: to blow by Feeding per:: G tube Complaints:: none ASSESSMENT & PLAN Assessment: Pt is a inmate admitted to [facility] on 09/14/24 for terminologist care with : Chronic disseminated Cocci involving 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 Continued on ongoing treatment which is reviewed from time to time Denies any pain/ headaches and remains amiable. . After swallow evaluation pt on some puree diet and doing well. Speech therapist to evaluate if PO intake can be advanced. No new issues. VSS Plan: Current treatment reviewed and continued
[2024-10-19] MEDS: ATORVASTATIN 10 MG TABLET GT (21:02)
[2024-10-19] MEDS: [UNRECOGNIZED DRUG - OTHER] GT (21:02)
[2024-10-19] MEDS: DOCUSATE GT (21:02)
[2024-10-20] VITALS (8 sets, daily range): BP systolic 124–150; BP diastolic 78–88; PULSE 76–98; RESP 18–20; TEMP 36.2–36.8; O2SAT 95–100
[2024-10-20] MEDS: METOCLOPRAMIDE 5 MG/5 ML 10 MG GT ×3 (05:23→21:25)
[2024-10-20] MEDS: ENOXAPARIN SODIUM 40 MG/0.4 ML SYRINGE SC (08:47)
[2024-10-20] MEDS: ASCORBIC ACID 500 MG TABLET GT (08:48)
[2024-10-20] MEDS: FLUCONAZOLE 200 MG TABLET 1200 MG GT (08:49)
[2024-10-20] MEDS: CHOLECALCIFEROL (VITAMIN D3) 25 MCG TABLET 50 MCG PO (08:49)
[2024-10-20] MEDS: GABAPENTIN 100 MG CAPSULE 200 MG GT ×2 (08:49→20:30)
[2024-10-20] MEDS: levETIRAcetam 100 MG/ML SOLUTION 500 MG GT ×2 (08:49→20:30)
[2024-10-20] MEDS: METOPROLOL 50 MG TABLET 25 MG GT ×2 (08:50→20:31)
[2024-10-20] MEDS: MULTIVITAMIN W MINERALS 1 EACH TABLET GT (08:51)
[2024-10-20] MEDS: ATORVASTATIN 10 MG TABLET GT (20:30)
[2024-10-20] MEDS: DOCUSATE GT (20:31)
[2024-10-20] MEDS: [UNRECOGNIZED DRUG - OTHER] GT (20:31)
[2024-10-20] MEDS: MIDODRINE 5 MG TABLET GT (21:25)
[2024-10-21] VITALS (7 sets, daily range): BP systolic 132–153; BP diastolic 75–89; PULSE 75–102; RESP 17–19; TEMP 36.2–36.6; O2SAT 96–98
[2024-10-21] MEDS: METOCLOPRAMIDE 5 MG/5 ML 10 MG GT ×3 (05:39→21:30)
[2024-10-21] MEDS: ENOXAPARIN SODIUM 40 MG/0.4 ML SYRINGE SC (08:50)
[2024-10-21] MEDS: FLUCONAZOLE 200 MG TABLET 1200 MG GT (09:42)
[2024-10-21] MEDS: CHOLECALCIFEROL (VITAMIN D3) 25 MCG TABLET 50 MCG PO (09:42)
[2024-10-21] MEDS: levETIRAcetam 100 MG/ML SOLUTION 500 MG GT ×2 (09:42→20:15)
[2024-10-21] MEDS: ASCORBIC ACID 500 MG TABLET GT (09:42)
[2024-10-21] MEDS: GABAPENTIN 100 MG CAPSULE 200 MG GT ×2 (09:42→20:15)
[2024-10-21] MEDS: METOPROLOL 50 MG TABLET 25 MG GT ×2 (09:42→20:15)
[2024-10-21] MEDS: MULTIVITAMIN W MINERALS 1 EACH TABLET GT (09:43)
[2024-10-21] MEDS: SCOPOLAMINE 1.5 MG TD (09:43)
--- NOTE | 2024-10-21 14:09 | PC.SS ---
Room visit: Resident is laying bed with head of the bed elevated with call light properly placed with no signs of distress. Resident is having episodes of confusion, he communicates needs. Resident is on blow by with trach in place and GT for medication and nutrition. Resident will remain in current care and will continue to have all subacute care needs met by staff. This SSD will continue to make daily contact with resident and monitor for changes in mood and behavior.
--- NOTE | 2024-10-21 14:43 | PC.SS ---
Resident is alert able to make simple needs known when he has clear speech. He is confused unable to make medical decisions, his decision maker is his father Tommy Bey Sr.
[2024-10-21] MEDS: ATORVASTATIN 10 MG TABLET GT (20:15)
[2024-10-21] MEDS: DOCUSATE GT (20:16)
[2024-10-21] MEDS: [UNRECOGNIZED DRUG - OTHER] GT (20:16)
[2024-10-21] MEDS: TRAMADOL 50 MG TABLET 25 MG GT (20:16)
[2024-10-22] VITALS (9 sets, daily range): BP systolic 135–153; BP diastolic 78–89; PULSE 90–101; RESP 16–19; TEMP 36.3–36.8; O2SAT 95–99
[2024-10-22 05:08] LABS: Albumin, Serum 4.1 gm/dL (3.5-5.0); Anion Gap 4 (7-16); BUN/Creatinine Ratio 43 Ratio (12-20); Blood Urea Nitrogen 17 mg/dL (9-23); Calcium 11.5 mg/dL (8.3-10.6); Calcium (Corrected) 11.5 mg/dL (8.5-10.1); Carbon Dioxide 38.2 mMol/L (20.0-31.0); Chloride 100 mMol/L (98-107); Creatinine (Component) 0.4 mg/dL (0.6-1.3); Estimated Creatinine Clearance 174.2 mL/min (>60); Glucose 114 mg/dL (74-106); Osmolality,Calculated 285 (275-295); Phosphorous 4.1 mg/dL (2.4-5.1); Potassium 3.6 mMol/L (3.4-5.1); Sodium 142 mMol/L (136-145); eGFR > 60 See Note
[2024-10-22] MEDS: METOCLOPRAMIDE 5 MG/5 ML 10 MG GT ×3 (05:39→21:08)
[2024-10-22] MEDS: ENOXAPARIN SODIUM 40 MG/0.4 ML SYRINGE SC (09:08)
[2024-10-22] MEDS: ASCORBIC ACID 500 MG TABLET GT (09:46)
[2024-10-22] MEDS: GABAPENTIN 100 MG CAPSULE 200 MG GT ×2 (09:47→21:06)
[2024-10-22] MEDS: FLUCONAZOLE 200 MG TABLET 1200 MG GT (09:47)
[2024-10-22] MEDS: METOPROLOL 50 MG TABLET 25 MG GT ×2 (09:47→21:08)
[2024-10-22] MEDS: levETIRAcetam 100 MG/ML SOLUTION 500 MG GT ×2 (09:47→21:07)
[2024-10-22] MEDS: CHOLECALCIFEROL (VITAMIN D3) 25 MCG TABLET 50 MCG PO (09:47)
[2024-10-22] MEDS: MULTIVITAMIN W MINERALS 1 EACH TABLET GT (09:48)
[2024-10-22] MEDS: ATORVASTATIN 10 MG TABLET GT (21:06)
[2024-10-22] MEDS: [UNRECOGNIZED DRUG - OTHER] GT (21:08)
[2024-10-22] MEDS: DOCUSATE GT (21:08)
[2024-10-23] VITALS: BP 148/86; PULSE 87; RESP 18; TEMP 36.3
[2024-10-23 05:35] VITALS: BP 125/77; PULSE 96; RESP 18; TEMP 36.6; O2SAT 99
[2024-10-23] MEDS: MIDODRINE 5 MG TABLET GT (06:02)
[2024-10-23] MEDS: METOCLOPRAMIDE 5 MG/5 ML 10 MG GT ×3 (06:02→21:17)
[2024-10-23 06:56] VITALS: PULSE 97; RESP 18; O2SAT 97
[2024-10-23] MEDS: ASCORBIC ACID 500 MG TABLET GT (07:47)
[2024-10-23 07:48] VITALS: BP 172/91; PULSE 102
[2024-10-23] MEDS: METOPROLOL 50 MG TABLET 25 MG GT ×2 (07:48→21:16)
[2024-10-23] MEDS: ENOXAPARIN SODIUM 40 MG/0.4 ML SYRINGE SC (07:48)
[2024-10-23] MEDS: levETIRAcetam 100 MG/ML SOLUTION 500 MG GT ×2 (07:48→21:13)
[2024-10-23] MEDS: GABAPENTIN 100 MG CAPSULE 200 MG GT ×2 (07:48→21:13)
[2024-10-23] MEDS: FLUCONAZOLE 200 MG TABLET 1200 MG GT (07:48)
[2024-10-23] MEDS: CHOLECALCIFEROL (VITAMIN D3) 25 MCG TABLET 50 MCG PO (07:48)
[2024-10-23] MEDS: MULTIVITAMIN W MINERALS 1 EACH TABLET GT (07:49)
[2024-10-23] MEDS: ACETAMINOPHEN 325 MG TABLET 650 MG GT (07:53)
--- NOTE | 2024-10-23 13:10 | ESPR_ITS ---
Progress Note - SubAcute DIAGNOSIS (1) Chronic respiratory failure: Status: Chronic (2) Disseminated coccidioidomycosis: Status: Chronic (3) Hydrocephalus: Status: Chronic (4) Ventriculo-peritoneal shunt status: Status: Chronic (5) Quadriplegia: Status: Chronic (6) G tube feedings: Status: Chronic (7) Tracheostomy in place: Status: Chronic OBJECTIVE Most recent vital signs: Last Vital Signs Temp 98.2 F 10/25/24 05:00 Pulse 100 10/25/24 08:40 Resp 18 10/25/24 06:23 BP 141/78 H 10/25/24 08:40 Pulse Ox 98 10/25/24 06:23 O2 Del Method Blow-by 10/19/24 18:00 O2 Flow Rate 2 10/25/24 06:23 FiO2 28 10/24/24 19:59 Speech:: mouths words and appropriate Answers questions:: yes Respiratory:: lungs clear and shallow breathing Cardiovascular: RRR Abdomen: soft Tracheostomy:: to blow by Feeding per:: G tube Complaints:: none ASSESSMENT & PLAN Assessment: Pt is a inmate admitted to [facility] on 09/14/24 for longterm care with : Chronic disseminated Cocci involving 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 Continued on ongoing treatment which is reviewed from time to time Denies any pain/ headaches and remains amiable. . After swallow evaluation pt on some puree diet and doing well. Speech therapist to evaluate if PO intake can be advanced. No new issues. VSS Plan: Current treatment reviewed and continued
[2024-10-23 18:48] VITALS: PULSE 112; RESP 18; O2SAT 97
[2024-10-23] MEDS: ATORVASTATIN 10 MG TABLET GT (21:13)
[2024-10-23 21:16] VITALS: BP 152/77; PULSE 109
[2024-10-23] MEDS: [UNRECOGNIZED DRUG - OTHER] GT (21:17)
[2024-10-23] MEDS: DOCUSATE GT (21:17)
[2024-10-23] MEDS: TRAMADOL 50 MG TABLET 25 MG GT (21:19)
[2024-10-24] VITALS (8 sets, daily range): BP systolic 132–154; BP diastolic 77–87; PULSE 76–98; RESP 18–22; TEMP 36.2–36.6; O2SAT 96–99
[2024-10-24] MEDS: METOCLOPRAMIDE 5 MG/5 ML 10 MG GT ×3 (05:21→21:21)
[2024-10-24] MEDS: ENOXAPARIN SODIUM 40 MG/0.4 ML SYRINGE SC (09:27)
[2024-10-24] MEDS: GABAPENTIN 100 MG CAPSULE 200 MG GT ×2 (09:30→21:20)
[2024-10-24] MEDS: ASCORBIC ACID 500 MG TABLET GT (09:30)
[2024-10-24] MEDS: FLUCONAZOLE 200 MG TABLET 1200 MG GT (09:30)
[2024-10-24] MEDS: CHOLECALCIFEROL (VITAMIN D3) 25 MCG TABLET 50 MCG PO (09:30)
[2024-10-24] MEDS: levETIRAcetam 100 MG/ML SOLUTION 500 MG GT ×2 (09:30→21:20)
[2024-10-24] MEDS: SCOPOLAMINE 1.5 MG TD (09:31)
[2024-10-24] MEDS: MULTIVITAMIN W MINERALS 1 EACH TABLET GT (09:31)
[2024-10-24] MEDS: METOPROLOL 50 MG TABLET 25 MG GT ×2 (09:31→21:20)
[2024-10-24] MEDS: [UNRECOGNIZED DRUG - OTHER] GT (21:20)
[2024-10-24] MEDS: ATORVASTATIN 10 MG TABLET GT (21:20)
[2024-10-24] MEDS: DOCUSATE GT (21:20)
[2024-10-24] MEDS: ACETAMINOPHEN 325 MG TABLET 650 MG GT (21:35)
[2024-10-25] VITALS: BP 135/78; PULSE 76; RESP 20; TEMP 36.4
[2024-10-25 05:00] VITALS: BP 142/87; PULSE 96; RESP 20; TEMP 36.8; O2SAT 98
[2024-10-25] MEDS: METOCLOPRAMIDE 5 MG/5 ML 10 MG GT ×3 (05:18→21:41)
--- NOTE | 2024-10-25 06:16 | PC.NURSE ---
Back Sewer called nurse into room, noted trach was pulled out. Called Rt, Rt attempted to put trach back in with negative results. Rt suggested leaving trach out since resident was satting above 95% on RA. Charge nurse and MD aware.
[2024-10-25 06:23] VITALS: PULSE 101; RESP 18; O2SAT 98
--- NOTE | 2024-10-25 06:33 | PC.NURSE ---
CUSTOMER SPECIALIST and HIGHWAY CONSTRUCTION INSPECTOR summoned this nurse to resident room, resident trach noted to be out, RTs called to room, RTs unable to place new trach, resident was placed on 2L/min via NC, resident is currently on a pulse ox and O2sat noted at 97%-98%, no s/s of distress noted at time, no c/o SOB, resident has been working with ST on PMV during day shift, made aware of event, new order to check vitals every 4 hours, resident in room resting, call light within reach, no s/s of distress at this time.
[2024-10-25] MEDS: ASCORBIC ACID 500 MG TABLET GT (08:37)
[2024-10-25] MEDS: CHOLECALCIFEROL (VITAMIN D3) 25 MCG TABLET 50 MCG PO (08:37)
[2024-10-25] MEDS: FLUCONAZOLE 200 MG TABLET 1200 MG GT (08:38)
[2024-10-25] MEDS: levETIRAcetam 100 MG/ML SOLUTION 500 MG GT ×2 (08:39→20:10)
[2024-10-25] MEDS: GABAPENTIN 100 MG CAPSULE 200 MG GT ×2 (08:39→20:10)
[2024-10-25 08:40] VITALS: BP 141/78; PULSE 100
[2024-10-25] MEDS: METOPROLOL 50 MG TABLET 25 MG GT ×2 (08:40→20:11)
[2024-10-25] MEDS: MULTIVITAMIN W MINERALS 1 EACH TABLET GT (08:40)
[2024-10-25] MEDS: ENOXAPARIN SODIUM 40 MG/0.4 ML SYRINGE SC (08:42)
[2024-10-25] MEDS: MIDODRINE 5 MG TABLET GT (14:25)
[2024-10-25 19:15] VITALS: PULSE 90; RESP 18; O2SAT 98
[2024-10-25] MEDS: ATORVASTATIN 10 MG TABLET GT (20:10)
[2024-10-25 20:11] VITALS: BP 135/87; PULSE 116
[2024-10-25] MEDS: DOCUSATE GT (20:11)
[2024-10-25] MEDS: [UNRECOGNIZED DRUG - OTHER] GT (20:11)
[2024-10-25] MEDS: ACETAMINOPHEN 325 MG TABLET 650 MG GT (20:13)
[2024-10-26] VITALS (8 sets, daily range): BP systolic 123–140; BP diastolic 70–89; PULSE 82–102; RESP 18–24; TEMP 36.6–37; O2SAT 97–99
[2024-10-26] MEDS: MIDODRINE 5 MG TABLET GT (05:08)
[2024-10-26] MEDS: TRAMADOL 50 MG TABLET 25 MG GT ×2 (05:55→20:05)
[2024-10-26] MEDS: ASCORBIC ACID 500 MG TABLET GT (08:33)
[2024-10-26] MEDS: CHOLECALCIFEROL (VITAMIN D3) 25 MCG TABLET 50 MCG PO (08:33)
[2024-10-26] MEDS: FLUCONAZOLE 200 MG TABLET 1200 MG GT (08:34)
[2024-10-26] MEDS: GABAPENTIN 100 MG CAPSULE 200 MG GT ×2 (08:34→20:03)
[2024-10-26] MEDS: levETIRAcetam 100 MG/ML SOLUTION 500 MG GT ×2 (08:35→20:03)
[2024-10-26] MEDS: METOPROLOL 50 MG TABLET 25 MG GT ×2 (08:35→20:04)
[2024-10-26] MEDS: MULTIVITAMIN W MINERALS 1 EACH TABLET GT (08:36)
[2024-10-26] MEDS: ENOXAPARIN SODIUM 40 MG/0.4 ML SYRINGE SC (09:17)
[2024-10-26] MEDS: ACETAMINOPHEN 325 MG TABLET 650 MG GT (09:30)
--- NOTE | 2024-10-26 14:51 | PC.NURSE ---
Late entry for 10/25/24. Condition remains stable s/p trach out. On O2 at 2L/NC , no s/s of respiratory distress noted. With continous pulse ox with O2 saturation 95%-96%.
--- NOTE | 2024-10-26 14:54 | PC.NURSE ---
No s/s of respiratory distress noted. Awake and alert, not wanting for any trach at this time. With continous pulse ox to monitor for any episode of desaturation s/p trach out. O2 saturation noted 98%.
--- NOTE | 2024-10-26 15:15 | PC.SS ---
Resident seen by looping inspector/ Dr. Sanchez had routine toe nail trim with no new orders or recommendations. Resident will continue current care.
--- NOTE | 2024-10-26 15:16 | PC.NURSE ---
Patient tolerating RA well. O2SATs ranging between 96-100% while on continuous O2 monitoring. HOB is >30 degrees throughout shift. Suctioned patient's mouth x1 during shift. No C/O pain around trach stoma site. Will continue with current plan of care.
[2024-10-26] MEDS: ATORVASTATIN 10 MG TABLET GT (20:03)
[2024-10-26] MEDS: [UNRECOGNIZED DRUG - OTHER] GT (20:04)
[2024-10-26] MEDS: DOCUSATE GT (20:04)
[2024-10-26] MEDS: METOCLOPRAMIDE 5 MG/5 ML 10 MG GT (21:14)
[2024-10-27] VITALS: BP 158/95; PULSE 87; RESP 16; TEMP 36.8
[2024-10-27] MEDS: METOCLOPRAMIDE 5 MG/5 ML 10 MG GT (05:11)
[2024-10-27 06:00] VITALS: BP 150/93; PULSE 93; RESP 18; TEMP 36.7
[2024-10-27] MEDS: ENOXAPARIN SODIUM 40 MG/0.4 ML SYRINGE SC (09:24)
[2024-10-27] MEDS: CHOLECALCIFEROL (VITAMIN D3) 25 MCG TABLET 50 MCG PO (09:24)
[2024-10-27] MEDS: ASCORBIC ACID 500 MG TABLET GT (09:24)
[2024-10-27 09:25] VITALS: BP 141/75; PULSE 114
[2024-10-27] MEDS: METOPROLOL 50 MG TABLET 25 MG GT (09:25)
[2024-10-27] MEDS: levETIRAcetam 100 MG/ML SOLUTION 500 MG GT (09:25)
[2024-10-27] MEDS: MULTIVITAMIN W MINERALS 1 EACH TABLET GT (09:25)
[2024-10-27] MEDS: FLUCONAZOLE 200 MG TABLET 1200 MG GT (09:25)
[2024-10-27] MEDS: GABAPENTIN 100 MG CAPSULE 200 MG GT (09:25)
[2024-10-27] MEDS: SCOPOLAMINE 1.5 MG TD (09:26)
[2024-10-27] MEDS: TRAMADOL 50 MG TABLET 25 MG GT (11:51)
[2024-10-27 12:00] VITALS: BP 126/79; PULSE 101; RESP 20; TEMP 38.1
--- NOTE | 2024-10-27 12:06 | PC.NURSE ---
Resident will be discharge in sub acute services and will be admitted as a SNF patient.
--- NOTE | 2024-11-16 11:01 | ESDS_ITS ---
RE: GISELA PURDY : 1970 DATE OF ADMISSION: 09/14/2024 DATE OF DISCHARGE: 10/27/24 12:21 DATE OF ADMISSION: 09/15/2024 ( status downgrade from Sub/acute to SNF) DATE OF DISCHARGE: 11/12/2024 ADMITTING DIAGNOSES: The patient was admitted to the [facility] at [facility] on 09/15/2024 with the diagnoses of 1. Chronic respiratory failure. 2. Disseminated coccidioidomycosis. 3. Hydrocephalus. 4. Chronic ventriculoperitoneal shunt status. 5. Quadriplegia. 6. With a tracheostomy and a feeding G-tube. DISCHARGE DIAGNOSES: 1. Chronic respiratory failure. 2. Disseminated coccidioidomycosis. 3. Hydrocephalus. 4. Chronic ventriculoperitoneal shunt status. 5. Quadriplegia. 6. With a tracheostomy and a feeding G-tube with the improvement of tracheostomy being discontinued. 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 The patient maintained stable status. A tracheostomy tube was subsequently discontinued and he did well. The patient's subacute status was changed to a prison facility and the patient was finally transferred on 11/12/2024 to [facility] in a stable and somewhat improved condition. No interventions. DT: 05:59:10 TT: 07:10:00 Ref: [id number] - TID: [id number] MTDD
== END 2024-10-27 12:21 | disposition skilled nursing facility (03) | DRG 133 ==
PROVIDERS: Admitting Provider Family Medicine; Visit Provider Specialist
DX: J96.10 Chronic respiratory failure, unspecified whether with hypoxia or hypercapnia (principal); G82.50 Quadriplegia, unspecified; B38.7 Disseminated coccidioidomycosis; G91.9 Hydrocephalus, unspecified; I10 Essential (primary) hypertension; Z93.1 Gastrostomy status; Z93.0 Tracheostomy status; Z98.2 Presence of cerebrospinal fluid drainage device
CPT/HCPCS: 36415; 36600; 71045; 80053; 80069; 82803; 83735; 85025; 86171; 87077; 87186; 87205; 92523; 92609; 92610

== ENCOUNTER 2024-09-16 02:29 | Emergency (ER) | payer OTHER, SELFPAY ==
[2024-09-16 02:41] VITALS: BP 135/80; PULSE 105; RESP 17; TEMP 37.7; O2SAT 96
--- NOTE | 2024-09-16 02:52 | PD.EDADULT ---
ED General RME/HPI General Chief complaint: General Adult/Misc Complain Stated complaint: PEG TUBE CLOGGED Time Seen by Provider: 09/16/24 02:45 Source: other ([facility] staff) Arrival date/time: 09/16/24 02:29 Mode of arrival: other (nikamahin) RME / HPI RME / HPI narrative: This section includes all my notes and documentations, including HPI, PE, and ED course.? Jaskaran Seo MD HPI: 53-year-old male inmate with a complex medical history including chronic disseminated coccidioidomycosis involving the YARN DYER with hydrocephalus status post COMPLAINT SUPERVISOR shunt placement, quadriplegia, chronic respiratory failure with tracheostomy to blow-by, hypertension, hyperlipidemia, and G-tube dependence, presents to the emergency department from this facility's [facility] unit with gastrostomy tube malfunction, probably clogged. Patient was recently admitted to this facility?s [facility] on 09/14/2024 for long-term residential care. At baseline, he is non-verbal and dependent on full care. No signs of acute distress were noted during transport. No other complaints reported. ROS: All negative except as documented in HPI. Physical Exam: General:? Alert.?No acute distress when remaining still.? Eyes:? Conjunctivae and lids clear. ENT:? No nasal congestion.? ? Neck:? Supple. Tracheostomy in place. Heart:? RRR. Lungs:? No respiratory distress.? Abdomen:? Soft and nontender.? Good bowel sounds. Gastrostomy tube is clogged. Legs:? No clubbing, cyanosis, edema. Skin:? Warm and dry.? Neuro:? Alert. At this point, diagnoses include Malfunction of gastrostomy tube. Treatment here included replacement of the clogged feeding tube with Collins catheter. Significant improvement noted. Based on my best medical judgment, made decision no further evaluation or treatment indicated at this time. Staff understands and agrees to the discharge instructions customized and printed, see below. Discharge Instructions from Dr. Seo printed for you: 1. We successfully replaced the clogged feeding tube with Collins catheter. 2. Care as instructed and attached handout. 3. Seek immediate medical care with any concerns. Jaskaran Seo MD Related Data Allergies Allergy/AdvReac Type Severity Reaction Status Date / Time No Known Allergies Allergy Verified 09/14/24 14:39 Review of Systems Review of Systems Systems Reviewed: All systems reviewed, normal except as documented Past Medical History Past Medical History NEUROLOGIC: Positive Neurological Disorders, Meningitis, Paralysis and Peripheral Neuropathy CARDIAC: Positive Cardiac Disorders, Hypercholesterolemia, Hypertension and Hypotension GASTROINTESTINAL: Positive Gastrointestinal Disorders and Gastroesophageal Reflux Disease ENDOCRINE: Positive Diabetes Mellitus Type 2 PSYCHO/SOCIAL: Positive Anxiety Surgical History SURGICAL: Positive Abdominal Surgery, Tracheostomy, Gastrostomy, Neurologic Surgery and Brain Shunt Course Quality Measures none Vital Signs Vital signs: Vital Signs Temperature 99.9 F 09/16/24 02:41 Pulse Rate 105 H 09/16/24 02:41 Respiratory Rate 17 09/16/24 02:41 Blood Pressure 135/80 H 09/16/24 02:41 Pulse Oximetry (%) 96 09/16/24 02:41 Oxygen Delivery Method Trach Collar 09/16/24 02:41 MDM Patient data External records reviewed:: [facility] previous records Clinical information provided by:: other (specify) ([facility] staff) Social determinants that could affect healthcare access:: none Patient has the following chronic illnesses:: chronic disseminated coccidioidomycosis involving the YARN DYER with hydrocephalus status post COMPLAINT SUPERVISOR shunt placement, quadriplegia, chronic respiratory failure with tracheostomy to blow-by, hypertension, hyperlipidemia, and G-tube dependence How is presenting disease/condition affected by chronic disease/condition?: uneffected by Evaluation data The following diagnostics were reviewed and interpreted by me:: other (specify) (No diagnostics ordered.) Lab and/or radiology exams considered but not ordered:: None Interpretation Summary: No diagnostics ordered. Medications Medications considered but not ordered:: None Medication administrations:: None Consultations Consultation(s) initiated? (list below): No Diagnosis Differential Diagnosis ED Complaint MDM: Clogged feeding tube Most likely diagnosis given after review of the tests above:: Malfunction of gastrostomy tube Admission Indicated Admission indicated?: not indicated Explain why admission is indicated or not indicated:: With significant improvement, there was no indication for admission. Admission Request Was there a request for admission?: No Disposition Plan Disposition Plan: Discharge Discharge Attestation Discharge Attestation: The patient and all family members were given an opportunity to ask questions and understood the discharge instructions. Discharge instructions specifically effects, indications for sooner follow up or return to the emergency department, and the expected course of current diagnosis. Patient condition: Stable Medical Decision Making MDM Narrative MDM Narrative: Scribe Attestation: I, Willi Reddy, am scribing for and in the presence of Dr. Seo. Provider Notation: Although this document has been carefully reviewed, there may still be some phonetic and other typographical errors. These errors are purely grammatical due to imperfections in the software program and should not be construed in any way to compromise the substance of the patient's medical care during this visit. Differential Diagnosis Differential Diagnosis: Clogged feeding tube Medical Records Medical records reviewed: Yes I reviewed the patient's medical records. Discharge Plan Plan Patient Disposition: Xfer Environmental Engineering Aide Acute w/in Hosp Problem List Clinical Impression: Malfunction of gastrostomy tube Patient/Caregiver Discharge Instructions Discharge Activity: resume usual activities Education Materials: ED Tube Replacement Feeding W Collins Additional Instructions: Discharge Instructions from Dr. Seo printed for you: 1. We successfully replaced the clogged feeding tube with Collins catheter. 2. Care as instructed and attached handout. 3. Seek immediate medical care with any concerns. Print Language: Unknown
[2024-09-16 03:10] VITALS: BMI 24.3
--- NOTE | 2024-09-16 03:11 | PC.NURSE ---
PT FROM SNF FOR CLOGGED PEG TUBE, PER LEGAL BILLING ANALYST HE WAS ATTEMPTING TO GIVE CRUSHED MEDS THROUGH PEG AND IT BECAME CLOGGED. ATTMEPTED TO GET RESIDUAL AND FLUSH FROM PEG AND NO SUCCESS. PROVIDER SKIP AT BEDSIDE, REMOVED PEG PT PRESENTED WITH AND REPLACED WITH 14FR MOROCHO CATHETER AND INFLATTED 5CC OF SALINE TO CATHETER. CATHETER WAS CHECKED FOR RESIDUAL AND FLUSHED WITHOUT ANY ISSUES.
== END 2024-09-16 03:15 | disposition skilled nursing facility (03) ==
LOC: SERX 04:05
PROVIDERS: Emergency Provider Emergency Medicine; PCP Specialist
DX: K94.23 Gastrostomy malfunction (principal); J96.10 Chronic respiratory failure, unspecified whether with hypoxia or hypercapnia; G82.50 Quadriplegia, unspecified; I10 Essential (primary) hypertension; E11.42 Type 2 diabetes mellitus with diabetic polyneuropathy; E78.5 Hyperlipidemia, unspecified; Z93.0 Tracheostomy status; Z98.2 Presence of cerebrospinal fluid drainage device; Y83.3 Surgical operation with formation of external stoma as the cause of abnormal reaction of the patient, or of later complication, without mention of misadventure at the time of the procedure; Y73.2 Prosthetic and other implants, materials and accessory gastroenterology and urology devices associated with adverse incidents; Y92.238 Other place in hospital as the place of occurrence of the external cause
CPT/HCPCS: 43762; 99283

== ENCOUNTER 2024-10-27 12:22 | Inpatient (IN) | payer MEDICAID, SELFPAY ==
--- NOTE | 2024-10-27 13:00 | PD.SAHP ---
Physical exam Physical Exam Vital signs: Temp Pulse Resp BP Pulse Ox O2 Del Method O2 Flow Rate 98.4 F 106 H 18 157/87 H 99 Nasal Cannula 2 10/27/24 10/27/24 10/27/24 10/27/24 19:35 10/27/2505:00 10/27/2518:35 Constitutional Comments: VSS HEENT Exam Comments: NAD Neck Exam Comments: NAD Chest/Breast/Axilla Exam Comments: NAD Respiratory Exam Respiratory: Present chest non-tender, lungs clear, normal breath sounds and no resp distress Cardiovascular Exam Cardiovascular: Present RRR, S1 and S2 Abdominal Exam Abdominal: Present normoactive bowel sounds Rectal Exam Comments: deferred Exam Comments: NAD Extremities Exam Comments: No clubbing , cyanosis or edema Back/Spine/Pelvis Exam Comments: NAD Skin Exam Comments: Sacral wound healing Neurological Exam Neurological: Present alert and oriented X3 Comments: Quadriplegic , incontinent of B & B Rehabilitation potential Diagnosis (1) Chronic respiratory failure: Status: Chronic (2) Disseminated coccidioidomycosis: Status: Chronic (3) Hydrocephalus: Status: Chronic (4) Ventriculo-peritoneal shunt status: Status: Chronic (5) Quadriplegia: Status: Chronic (6) G tube feedings: Status: Chronic Assessment & Plan Assessment: Pt is a inmate admitted to [facility] on 09/14/24 for development disability specialist care with : Chronic disseminated Cocci involving NIB INSPECTOR with hydrocephalus and s/p GLAZE WIPER shunt placement with Quadriplegia/ HTN/hyperlipidemia/ Chronic respiratory failure with tracheotomy to blow by and a feeding G tube. Continued on ongoing treatment which is reviewed from time to time Denies any pain/ headaches and remains amiable. . After swallow evaluation pt on some puree diet and doing well. Speech therapist evaluated and PO intake advanced. No new issues. VSS Tracheostomy tube discontinued at pt.'s request and tolerating well. Status changed to SNF adission since 10-27-24 Plan: Current treatment reviewed and continued HPI History of Present Illness HPI: Pt is a inmate admitted to [facility] on 09/14/24 for development disability specialist care with : Chronic disseminated Cocci involving NIB INSPECTOR with hydrocephalus and s/p GLAZE WIPER shunt placement with Quadriplegia/ HTN/hyperlipidemia/ Chronic respiratory failure. and a feeding G tube.
[2024-10-27] MEDS: METOCLOPRAMIDE 5 MG/5 ML 10 MG GT ×2 (14:36→21:53)
--- NOTE | 2024-10-27 15:07 | PC.SS ---
Resident is here for skilled care, he is alert and confused able to make simple needs known with clear speech. Resident is FULL CODE with full treatment no episcopalian preference or spiritual care visits. Resident has a parcel post officer he answers to with her contact info on file. Resident does not wear any glasses or hearing aides as he denies having any impairment. This SSD will assist with placement to lower level of care as appropriate.
[2024-10-27 17:53] VITALS: BP 144/85; PULSE 92; RESP 18; TEMP 36.6; O2SAT 98
[2024-10-27 19:43] VITALS: PULSE 83; RESP 20; O2SAT 99
[2024-10-27] MEDS: ATORVASTATIN 10 MG TABLET GT (21:51)
[2024-10-27] MEDS: levETIRAcetam 100 MG/ML SOLUTION 500 MG GT (21:51)
[2024-10-27] MEDS: GABAPENTIN 100 MG CAPSULE 200 MG GT (21:51)
[2024-10-27 21:52] VITALS: BP 136/81; PULSE 101
[2024-10-27] MEDS: DOCUSATE GT (21:52)
[2024-10-27] MEDS: DEX/HYPRO/GLY ARTIFICAL TEARS 225 DROP/15 ML BTL BOTH EYES (21:52)
[2024-10-27] MEDS: [UNRECOGNIZED DRUG - OTHER] GT (21:52)
[2024-10-27] MEDS: METOPROLOL 50 MG TABLET 25 MG GT (21:52)
[2024-10-28] VITALS: BP 142/78; PULSE 96; RESP 24; TEMP 36.8
[2024-10-28] MEDS: METOCLOPRAMIDE 5 MG/5 ML 10 MG GT ×3 (05:21→21:35)
[2024-10-28] MEDS: DEX/HYPRO/GLY ARTIFICAL TEARS 225 DROP/15 ML BTL BOTH EYES ×3 (05:22→21:35)
[2024-10-28] MEDS: ACETAMINOPHEN 325 MG TABLET 650 MG GT (05:49)
[2024-10-28 06:00] VITALS: BP 150/80; PULSE 108; RESP 20; TEMP 37.1
[2024-10-28] MEDS: ASCORBIC ACID 500 MG TABLET GT (09:29)
[2024-10-28] MEDS: CHOLECALCIFEROL (VITAMIN D3) 25 MCG TABLET 50 MCG PO (09:29)
[2024-10-28 09:30] VITALS: BP 146/79; PULSE 96
[2024-10-28] MEDS: levETIRAcetam 100 MG/ML SOLUTION 500 MG GT ×2 (09:30→21:34)
[2024-10-28] MEDS: METOPROLOL 50 MG TABLET 25 MG GT ×2 (09:30→21:35)
[2024-10-28] MEDS: FLUCONAZOLE 200 MG TABLET 1200 MG GT (09:30)
[2024-10-28] MEDS: GABAPENTIN 100 MG CAPSULE 200 MG GT ×2 (09:30→21:33)
[2024-10-28] MEDS: MULTIVITAMIN W MINERALS 1 EACH TABLET GT (09:31)
--- NOTE | 2024-10-28 10:16 | PC.SS ---
DC plan: This SSD will reach out to [facility] for a consultation for comfort care. The plan is for resident to DC to lower level of care or DC to home with father as appropriate. This SSD will keep resident and RP updated of process. Resident is requesting to be DC to home with his father. This SSD will assist as appropriate.
--- NOTE | 2024-10-28 15:13 | PC.SS ---
DC planning: Resident remains in current care, he is alert and confused able to make needs known. Resident states he would like to return home with his father. This SSD reached to [facility] for consultation, David came out and did bedside visit at which time resident did agree to allow them to reach out to his father for possible placement to home or at a facility closer to home. This SSD will follow up and continue to collaborate with [facility] for DC to lower level of care.
[2024-10-28 19:35] VITALS: PULSE 76; RESP 20; O2SAT 99
[2024-10-28] MEDS: ATORVASTATIN 10 MG TABLET GT (21:32)
[2024-10-28 21:35] VITALS: BP 145/90; PULSE 101
[2024-10-28] MEDS: DOCUSATE GT (21:35)
[2024-10-28] MEDS: [UNRECOGNIZED DRUG - OTHER] GT (21:35)
[2024-10-29] VITALS: BP 146/80; PULSE 88; RESP 21; TEMP 36.7; O2SAT 99
[2024-10-29] MEDS: METOCLOPRAMIDE 5 MG/5 ML 10 MG GT ×3 (05:10→21:02)
[2024-10-29] MEDS: DEX/HYPRO/GLY ARTIFICAL TEARS 225 DROP/15 ML BTL BOTH EYES ×3 (05:10→21:01)
[2024-10-29 06:00] VITALS: BP 139/82; PULSE 88; RESP 20; TEMP 36.3; O2SAT 99
[2024-10-29] MEDS: FLUCONAZOLE 200 MG TABLET 1200 MG GT (09:43)
[2024-10-29] MEDS: ASCORBIC ACID 500 MG TABLET GT (09:43)
[2024-10-29] MEDS: GABAPENTIN 100 MG CAPSULE 200 MG GT ×2 (09:43→20:40)
[2024-10-29] MEDS: CHOLECALCIFEROL (VITAMIN D3) 25 MCG TABLET 50 MCG PO (09:43)
[2024-10-29 09:44] VITALS: BP 153/84; PULSE 89
[2024-10-29] MEDS: levETIRAcetam 100 MG/ML SOLUTION 500 MG GT ×2 (09:44→20:40)
[2024-10-29] MEDS: MULTIVITAMIN W MINERALS 1 EACH TABLET GT (09:44)
[2024-10-29] MEDS: METOPROLOL 50 MG TABLET 25 MG GT ×2 (09:44→20:40)
[2024-10-29 11:41] VITALS: BMI 20.7
[2024-10-29 15:20] VITALS: PULSE 83; RESP 18; O2SAT 98
--- NOTE | 2024-10-29 16:05 | PC.SS ---
DC Planning: This SSD spoke with [facility] [place] office Evan. Discussed DC planning, Evan says she needs to know where resident will discharge to and what transportation we will be using. Evan is aware of resident current status, no other questions or concerns at this time. This SSD will keep Evan updated of DC planning.
[2024-10-29 18:55] VITALS: PULSE 80; RESP 18; O2SAT 98
[2024-10-29 20:40] VITALS: BP 148/85; PULSE 103
[2024-10-29] MEDS: [UNRECOGNIZED DRUG - OTHER] GT (20:40)
[2024-10-29] MEDS: ATORVASTATIN 10 MG TABLET GT (20:40)
[2024-10-29] MEDS: DOCUSATE GT (20:40)
[2024-10-30] VITALS: BP 143/83; PULSE 91; RESP 17; TEMP 36.2
[2024-10-30] MEDS: DEX/HYPRO/GLY ARTIFICAL TEARS 225 DROP/15 ML BTL BOTH EYES ×3 (05:50→21:50)
[2024-10-30] MEDS: METOCLOPRAMIDE 5 MG/5 ML 10 MG GT ×3 (05:50→21:51)
[2024-10-30 06:00] VITALS: BP 143/82; PULSE 90; RESP 18; TEMP 36.6; O2SAT 98
[2024-10-30] MEDS: CHOLECALCIFEROL (VITAMIN D3) 25 MCG TABLET 50 MCG PO (08:56)
[2024-10-30] MEDS: ASCORBIC ACID 500 MG TABLET GT (08:56)
[2024-10-30] MEDS: FLUCONAZOLE 200 MG TABLET 1200 MG GT (08:57)
[2024-10-30] MEDS: GABAPENTIN 100 MG CAPSULE 200 MG GT ×2 (08:58→21:49)
[2024-10-30] MEDS: levETIRAcetam 100 MG/ML SOLUTION 500 MG GT ×2 (08:59→21:49)
[2024-10-30 09:00] VITALS: BP 142/82; PULSE 90
[2024-10-30] MEDS: METOPROLOL 50 MG TABLET 25 MG GT ×2 (09:00→21:50)
[2024-10-30] MEDS: MULTIVITAMIN W MINERALS 1 EACH TABLET GT (09:01)
--- NOTE | 2024-10-30 12:06 | PC.SS ---
DC Planning: This SSD spoke with Sanjuanita more at [facility] who provided update regarding resident insurance. This SSD reached out to [facility] PT accounting to inquire of insurance. Plan is for resident medical status to be determined, once confirmed resident will DC from facility and will DC to [facility] and be placed home temporally until appropriate facility closer to home is available. This SSD will update resident, RP and [place] once PT accounting can provide this SSD with a confirmation.
[2024-10-30 17:21] VITALS: PULSE 113; RESP 18; O2SAT 97
[2024-10-30] MEDS: ACETAMINOPHEN 325 MG TABLET 650 MG GT (21:45)
[2024-10-30] MEDS: ATORVASTATIN 10 MG TABLET GT (21:48)
[2024-10-30 21:50] VITALS: BP 144/79; PULSE 100
[2024-10-30] MEDS: DOCUSATE GT (21:50)
[2024-10-30] MEDS: [UNRECOGNIZED DRUG - OTHER] GT (21:50)
[2024-10-31] VITALS (8 sets, daily range): BP systolic 130–141; BP diastolic 76–87; PULSE 80–96; RESP 18–22; TEMP 36.2–36.7; O2SAT 97–98
[2024-10-31] MEDS: METOCLOPRAMIDE 5 MG/5 ML 10 MG GT ×3 (05:46→21:42)
[2024-10-31] MEDS: DEX/HYPRO/GLY ARTIFICAL TEARS 225 DROP/15 ML BTL BOTH EYES ×3 (05:46→21:41)
[2024-10-31] MEDS: ENOXAPARIN SODIUM 40 MG/0.4 ML SYRINGE SC (09:18)
[2024-10-31] MEDS: ASCORBIC ACID 500 MG TABLET GT (09:34)
[2024-10-31] MEDS: FLUCONAZOLE 200 MG TABLET 1200 MG GT (09:34)
[2024-10-31] MEDS: CHOLECALCIFEROL (VITAMIN D3) 25 MCG TABLET 50 MCG PO (09:34)
[2024-10-31] MEDS: GABAPENTIN 100 MG CAPSULE 200 MG GT ×2 (09:35→22:00)
[2024-10-31] MEDS: MULTIVITAMIN W MINERALS 1 EACH TABLET GT (09:35)
[2024-10-31] MEDS: METOPROLOL 50 MG TABLET 25 MG GT ×2 (09:35→21:40)
[2024-10-31] MEDS: levETIRAcetam 100 MG/ML SOLUTION 500 MG GT ×2 (09:35→21:39)
[2024-10-31] MEDS: ATORVASTATIN 10 MG TABLET GT (21:38)
[2024-10-31] MEDS: DOCUSATE GT (21:40)
[2024-10-31] MEDS: [UNRECOGNIZED DRUG - OTHER] GT (21:40)
[2024-10-31] MEDS: ACETAMINOPHEN 325 MG TABLET 650 MG GT (21:43)
--- NOTE | 2024-10-31 23:12 | ESPR_ITS ---
Progress Note - SubAcute DIAGNOSIS (1) Chronic respiratory failure: Status: Chronic (2) Disseminated coccidioidomycosis: Status: Chronic (3) Hydrocephalus: Status: Chronic (4) Ventriculo-peritoneal shunt status: Status: Chronic (5) Quadriplegia: Status: Chronic (6) G tube feedings: Status: Chronic OBJECTIVE Most recent vital signs: Last Vital Signs Temp 97.7 F 10/31/24 17:48 Pulse 94 10/31/24 21:40 Resp 18 10/31/24 19:30 BP 141/87 H 10/31/24 21:40 Pulse Ox 97 10/31/24 19:30 O2 Del Method Nasal Cannula 10/29/24 06:00 O2 Flow Rate 2 10/31/24 19:30 Speech:: mouths words and appropriate Answers questions:: yes Respiratory:: lungs clear and shallow breathing Cardiovascular: RRR Abdomen: soft Tracheostomy:: to blow by Feeding per:: G tube Complaints:: none ASSESSMENT & PLAN Assessment: Pt is a inmate admitted to [facility] on 09/14/24 for shelter care with : Chronic disseminated Cocci involving 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 Continued on ongoing treatment which is reviewed from time to time Denies any pain/ headaches and remains amiable. . After swallow evaluation pt on some puree diet and doing well. Speech therapist evaluated and PO intake advanced. No new issues. VSS Tracheostomy tube discontinued at pt.'s request and tolerating well. Status changed to SNF adission since 10-27-24 Plan: Current treatment reviewed and continued
[2024-11-01] VITALS (8 sets, daily range): BP systolic 131–157; BP diastolic 81–88; PULSE 81–107; RESP 18–20; TEMP 36.6–36.9; O2SAT 97–99
[2024-11-01] MEDS: DEX/HYPRO/GLY ARTIFICAL TEARS 225 DROP/15 ML BTL BOTH EYES ×3 (05:13→21:20)
[2024-11-01] MEDS: METOCLOPRAMIDE 5 MG/5 ML 10 MG GT ×3 (05:13→21:20)
[2024-11-01] MEDS: CHOLECALCIFEROL (VITAMIN D3) 25 MCG TABLET 50 MCG PO (08:53)
[2024-11-01] MEDS: ASCORBIC ACID 500 MG TABLET GT (08:53)
[2024-11-01] MEDS: ENOXAPARIN SODIUM 40 MG/0.4 ML SYRINGE SC (08:55)
[2024-11-01] MEDS: GABAPENTIN 100 MG CAPSULE 200 MG GT ×2 (08:56→20:35)
[2024-11-01] MEDS: FLUCONAZOLE 200 MG TABLET 1200 MG GT (08:56)
[2024-11-01] MEDS: levETIRAcetam 100 MG/ML SOLUTION 500 MG GT ×2 (08:57→20:35)
[2024-11-01] MEDS: METOPROLOL 50 MG TABLET 25 MG GT ×2 (08:59→20:36)
[2024-11-01] MEDS: MULTIVITAMIN W MINERALS 1 EACH TABLET GT (08:59)
[2024-11-01] MEDS: ATORVASTATIN 10 MG TABLET GT (20:35)
[2024-11-01] MEDS: [UNRECOGNIZED DRUG - OTHER] GT (20:36)
[2024-11-01] MEDS: DOCUSATE GT (20:36)
[2024-11-01] MEDS: ACETAMINOPHEN 325 MG TABLET 650 MG GT (20:37)
[2024-11-02] VITALS: BP 121/70; PULSE 87; RESP 20; TEMP 36.4
[2024-11-02] MEDS: DEX/HYPRO/GLY ARTIFICAL TEARS 225 DROP/15 ML BTL BOTH EYES ×3 (05:09→21:16)
[2024-11-02] MEDS: METOCLOPRAMIDE 5 MG/5 ML 10 MG GT ×3 (05:10→21:16)
[2024-11-02 06:00] VITALS: BP 135/77; PULSE 84; RESP 20; TEMP 36.3; O2SAT 99
[2024-11-02 06:49] VITALS: PULSE 92; RESP 18; O2SAT 97
[2024-11-02] MEDS: CHOLECALCIFEROL (VITAMIN D3) 25 MCG TABLET 50 MCG PO (09:03)
[2024-11-02] MEDS: ASCORBIC ACID 500 MG TABLET GT (09:03)
[2024-11-02] MEDS: FLUCONAZOLE 200 MG TABLET 1200 MG GT (09:03)
[2024-11-02] MEDS: ENOXAPARIN SODIUM 40 MG/0.4 ML SYRINGE SC (09:03)
[2024-11-02] MEDS: levETIRAcetam 100 MG/ML SOLUTION 500 MG GT ×2 (09:04→20:35)
[2024-11-02] MEDS: GABAPENTIN 100 MG CAPSULE 200 MG GT ×2 (09:04→20:35)
[2024-11-02 09:05] VITALS: BP 136/79; PULSE 93
[2024-11-02] MEDS: METOPROLOL 50 MG TABLET 25 MG GT ×2 (09:05→20:35)
[2024-11-02] MEDS: MULTIVITAMIN W MINERALS 1 EACH TABLET GT (09:05)
[2024-11-02] MEDS: SCOPOLAMINE 1.5 MG TD (09:06)
[2024-11-02 19:26] VITALS: PULSE 98; RESP 18; O2SAT 99
[2024-11-02] MEDS: ATORVASTATIN 10 MG TABLET GT (20:34)
[2024-11-02 20:35] VITALS: BP 156/93; PULSE 93
[2024-11-02] MEDS: [UNRECOGNIZED DRUG - OTHER] GT (20:35)
[2024-11-02] MEDS: DOCUSATE GT (20:35)
[2024-11-03] VITALS (8 sets, daily range): BP systolic 120–176; BP diastolic 70–99; PULSE 79–111; RESP 16–20; TEMP 36.3–36.8; O2SAT 98–99
[2024-11-03] MEDS: DEX/HYPRO/GLY ARTIFICAL TEARS 225 DROP/15 ML BTL BOTH EYES ×3 (05:25→20:59)
[2024-11-03] MEDS: ASCORBIC ACID 500 MG TABLET GT (09:04)
[2024-11-03] MEDS: CHOLECALCIFEROL (VITAMIN D3) 25 MCG TABLET 50 MCG PO (09:05)
[2024-11-03] MEDS: ENOXAPARIN SODIUM 40 MG/0.4 ML SYRINGE SC (09:05)
[2024-11-03] MEDS: levETIRAcetam 100 MG/ML SOLUTION 500 MG GT ×2 (09:06→20:55)
[2024-11-03] MEDS: GABAPENTIN 100 MG CAPSULE 200 MG GT ×2 (09:06→20:55)
[2024-11-03] MEDS: FLUCONAZOLE 200 MG TABLET 1200 MG GT (09:06)
[2024-11-03] MEDS: MULTIVITAMIN W MINERALS 1 EACH TABLET GT (09:07)
[2024-11-03] MEDS: METOPROLOL 50 MG TABLET 25 MG GT ×2 (09:07→20:55)
[2024-11-03] MEDS: METOCLOPRAMIDE 5 MG/5 ML 10 MG GT ×2 (14:27→21:00)
[2024-11-03] MEDS: MIDODRINE 5 MG TABLET GT ×2 (14:27→21:00)
[2024-11-03] MEDS: ATORVASTATIN 10 MG TABLET GT (20:54)
[2024-11-03] MEDS: [UNRECOGNIZED DRUG - OTHER] GT (20:56)
[2024-11-03] MEDS: DOCUSATE GT (20:56)
[2024-11-04] VITALS (8 sets, daily range): BP systolic 109–148; BP diastolic 66–88; PULSE 73–109; RESP 16–21; TEMP 36.1–36.4; O2SAT 95–99
[2024-11-04] MEDS: DEX/HYPRO/GLY ARTIFICAL TEARS 225 DROP/15 ML BTL BOTH EYES ×3 (05:03→21:00)
[2024-11-04] MEDS: METOCLOPRAMIDE 5 MG/5 ML 10 MG GT ×3 (05:04→21:00)
[2024-11-04] MEDS: MIDODRINE 5 MG TABLET GT ×2 (05:05→21:00)
[2024-11-04] MEDS: ENOXAPARIN SODIUM 40 MG/0.4 ML SYRINGE SC (09:09)
[2024-11-04] MEDS: ASCORBIC ACID 500 MG TABLET GT (09:45)
[2024-11-04] MEDS: CHOLECALCIFEROL (VITAMIN D3) 25 MCG TABLET 50 MCG PO (09:46)
[2024-11-04] MEDS: GABAPENTIN 100 MG CAPSULE 200 MG GT ×2 (09:46→20:55)
[2024-11-04] MEDS: MULTIVITAMIN W MINERALS 1 EACH TABLET GT (09:46)
[2024-11-04] MEDS: METOPROLOL 50 MG TABLET 25 MG GT ×2 (09:46→20:56)
[2024-11-04] MEDS: levETIRAcetam 100 MG/ML SOLUTION 500 MG GT ×2 (09:46→20:55)
[2024-11-04] MEDS: FLUCONAZOLE 200 MG TABLET 1200 MG GT (09:46)
--- NOTE | 2024-11-04 12:22 | PC.IP ---
Resident has been offered and refused any immunizations for Pneumococcal or still available Influenza. Historically, resident has not had immunizations for his health. Will offer again at any clinics that may be scheduled for Covid/PNA.
--- NOTE | 2024-11-04 14:38 | PC.SS ---
Resident is laying in bed with head of the bed elevated with call light properly placed with no signs of distress. Resident is able to make needs known, he is confused sometimes has a hard time remembering events dates and times. Resident is on room air with no trach in place. He will remain in current care until he is able to DC to home with father or to lower level of care. This SSD will continue to make contact with resident and and offer support as needed for DC planning.
[2024-11-04] MEDS: ATORVASTATIN 10 MG TABLET GT (20:55)
[2024-11-04] MEDS: [UNRECOGNIZED DRUG - OTHER] GT (20:56)
[2024-11-04] MEDS: DOCUSATE GT (20:56)
[2024-11-04] MEDS: ACETAMINOPHEN 325 MG TABLET 650 MG GT (21:00)
--- NOTE | 2024-11-04 22:49 | ESPR_ITS ---
Progress Note - SubAcute DIAGNOSIS (1) Chronic respiratory failure: Status: Chronic (2) Disseminated coccidioidomycosis: Status: Chronic (3) Hydrocephalus: Status: Chronic (4) Ventriculo-peritoneal shunt status: Status: Chronic (5) Quadriplegia: Status: Chronic (6) G tube feedings: Status: Chronic OBJECTIVE Most recent vital signs: Last Vital Signs Temp 97.1 F 11/04/24 17:44 Pulse 109 H 11/04/24 20:56 Resp 20 11/04/24 17:44 BP 117/66 11/04/24 20:56 Pulse Ox 95 11/04/24 17:44 O2 Del Method Nasal Cannula 11/03/24 17:06 O2 Flow Rate 2 11/04/24 07:45 Speech:: mouths words and appropriate Answers questions:: yes Respiratory:: lungs clear and shallow breathing Cardiovascular: RRR Abdomen: soft Tracheostomy:: to blow by Feeding per:: G tube Complaints:: none ASSESSMENT & PLAN Assessment: Pt is a inmate admitted to [facility] on 09/14/24 for long term care social worker care with : Chronic disseminated Cocci involving 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 Continued on ongoing treatment which is reviewed from time to time Denies any pain/ headaches and remains amiable. . After swallow evaluation pt on some puree diet and doing well. Speech therapist evaluated and PO intake advanced. No new issues. VSS Tracheostomy tube discontinued at pt.'s request and tolerating well. Status changed to SNF admission since 10-27-24 stable status Plan: Current treatment reviewed and continued
[2024-11-05] VITALS (8 sets, daily range): BP systolic 124–139; BP diastolic 73–82; PULSE 78–106; RESP 18–24; TEMP 36.4–36.7; O2SAT 95–99
[2024-11-05] MEDS: DEX/HYPRO/GLY ARTIFICAL TEARS 225 DROP/15 ML BTL BOTH EYES ×3 (05:26→21:52)
[2024-11-05] MEDS: METOCLOPRAMIDE 5 MG/5 ML 10 MG GT ×3 (05:27→21:53)
[2024-11-05] MEDS: MIDODRINE 5 MG TABLET GT ×3 (05:27→21:53)
[2024-11-05] MEDS: ASCORBIC ACID 500 MG TABLET GT (08:37)
[2024-11-05] MEDS: CHOLECALCIFEROL (VITAMIN D3) 25 MCG TABLET 50 MCG PO (08:37)
[2024-11-05] MEDS: ENOXAPARIN SODIUM 40 MG/0.4 ML SYRINGE SC (08:38)
[2024-11-05] MEDS: FLUCONAZOLE 200 MG TABLET 1200 MG GT (08:38)
[2024-11-05] MEDS: levETIRAcetam 100 MG/ML SOLUTION 500 MG GT ×2 (08:39→21:49)
[2024-11-05] MEDS: GABAPENTIN 100 MG CAPSULE 200 MG GT ×2 (08:39→21:49)
[2024-11-05] MEDS: METOPROLOL 50 MG TABLET 25 MG GT ×2 (08:39→21:51)
[2024-11-05] MEDS: MULTIVITAMIN W MINERALS 1 EACH TABLET GT (08:41)
[2024-11-05] MEDS: SCOPOLAMINE 1.5 MG TD (08:42)
[2024-11-05] MEDS: ATORVASTATIN 10 MG TABLET GT (21:49)
[2024-11-05] MEDS: [UNRECOGNIZED DRUG - OTHER] GT (21:51)
[2024-11-05] MEDS: DOCUSATE GT (21:51)
[2024-11-05] MEDS: ACETAMINOPHEN 325 MG TABLET 650 MG GT (21:54)
[2024-11-06] VITALS (8 sets, daily range): BP systolic 120–160; BP diastolic 70–88; PULSE 84–99; RESP 17–20; TEMP 36.5–37.5; O2SAT 95–99
[2024-11-06] MEDS: DEX/HYPRO/GLY ARTIFICAL TEARS 225 DROP/15 ML BTL BOTH EYES ×3 (05:57→21:12)
[2024-11-06] MEDS: METOCLOPRAMIDE 5 MG/5 ML 10 MG GT ×3 (05:57→21:12)
[2024-11-06] MEDS: CHOLECALCIFEROL (VITAMIN D3) 25 MCG TABLET 50 MCG PO (08:52)
[2024-11-06] MEDS: ASCORBIC ACID 500 MG TABLET GT (08:52)
[2024-11-06] MEDS: ENOXAPARIN SODIUM 40 MG/0.4 ML SYRINGE SC (08:52)
[2024-11-06] MEDS: GABAPENTIN 100 MG CAPSULE 200 MG GT ×2 (08:53→21:10)
[2024-11-06] MEDS: levETIRAcetam 100 MG/ML SOLUTION 500 MG GT ×2 (08:53→21:10)
[2024-11-06] MEDS: FLUCONAZOLE 200 MG TABLET 1200 MG GT (08:53)
[2024-11-06] MEDS: METOPROLOL 50 MG TABLET 25 MG GT ×2 (08:55→21:11)
[2024-11-06] MEDS: MULTIVITAMIN W MINERALS 1 EACH TABLET GT (08:56)
--- NOTE | 2024-11-06 09:50 | PD.SAPROG ---
Progress Note - SubAcute DIAGNOSIS (1) Chronic respiratory failure: Status: Chronic (2) Disseminated coccidioidomycosis: Status: Chronic (3) Hydrocephalus: Status: Chronic (4) Ventriculo-peritoneal shunt status: Status: Chronic (5) Quadriplegia: Status: Chronic (6) G tube feedings: Status: Chronic OBJECTIVE Most recent vital signs: Last Vital Signs Temp 97.7 F 11/06/24 06:00 Pulse 96 11/06/24 08:55 Resp 18 11/06/24 06:00 BP 160/83 H 11/06/24 08:55 Pulse Ox 99 11/06/24 06:00 O2 Del Method Nasal Cannula 11/03/24 17:06 O2 Flow Rate 2 11/05/24 18:53 Speech:: mouths words and appropriate Answers questions:: yes Respiratory:: lungs clear and shallow breathing Cardiovascular: RRR Abdomen: soft Tracheostomy:: to blow by Feeding per:: G tube Complaints:: none ASSESSMENT & PLAN Assessment: Pt is a inmate admitted to [facility] on 09/14/24 for long-term care with : Chronic disseminated 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 Continued on ongoing treatment which is reviewed from time to time Denies any pain/ headaches and remains amiable. . After swallow evaluation pt on some puree diet and doing well. Speech therapist evaluated and PO intake advanced. No new issues. VSS Tracheostomy tube discontinued at pt.'s request and tolerating well. Status changed to SNF admission since 10-27-24 stable status. No new issues Plan: Current treatment reviewed and continued
[2024-11-06] MEDS: ACETAMINOPHEN 325 MG TABLET 650 MG GT (16:00)
[2024-11-06] MEDS: ATORVASTATIN 10 MG TABLET GT (21:09)
[2024-11-06] MEDS: DOCUSATE GT (21:11)
[2024-11-06] MEDS: [UNRECOGNIZED DRUG - OTHER] GT (21:11)
[2024-11-07] VITALS (8 sets, daily range): BP systolic 119–172; BP diastolic 67–80; PULSE 77–115; RESP 17–18; TEMP 36.1–37.1; O2SAT 94–98
[2024-11-07] MEDS: DEX/HYPRO/GLY ARTIFICAL TEARS 225 DROP/15 ML BTL BOTH EYES ×3 (05:24→21:20)
[2024-11-07] MEDS: METOCLOPRAMIDE 5 MG/5 ML 10 MG GT ×3 (05:25→21:21)
[2024-11-07] MEDS: ASCORBIC ACID 500 MG TABLET GT (09:55)
[2024-11-07] MEDS: ENOXAPARIN SODIUM 40 MG/0.4 ML SYRINGE SC (09:56)
[2024-11-07] MEDS: FLUCONAZOLE 200 MG TABLET 1200 MG GT (09:56)
[2024-11-07] MEDS: GABAPENTIN 100 MG CAPSULE 200 MG GT ×2 (09:56→21:19)
[2024-11-07] MEDS: CHOLECALCIFEROL (VITAMIN D3) 25 MCG TABLET 50 MCG PO (09:56)
[2024-11-07] MEDS: MULTIVITAMIN W MINERALS 1 EACH TABLET GT (09:56)
[2024-11-07] MEDS: levETIRAcetam 100 MG/ML SOLUTION 500 MG GT ×2 (09:56→21:19)
[2024-11-07] MEDS: METOPROLOL 50 MG TABLET 25 MG GT ×2 (09:57→21:20)
[2024-11-07] MEDS: ATORVASTATIN 10 MG TABLET GT (21:17)
[2024-11-07] MEDS: DOCUSATE GT (21:20)
[2024-11-07] MEDS: [UNRECOGNIZED DRUG - OTHER] GT (21:20)
[2024-11-07] MEDS: MIDODRINE 5 MG TABLET GT (21:21)
[2024-11-07] MEDS: ACETAMINOPHEN 325 MG TABLET 650 MG GT (21:22)
[2024-11-08] VITALS (8 sets, daily range): BP systolic 122–143; BP diastolic 72–81; PULSE 71–96; RESP 17–20; TEMP 36.2–36.8; O2SAT 97–99
[2024-11-08] MEDS: METOCLOPRAMIDE 5 MG/5 ML 10 MG GT ×3 (05:45→21:13)
[2024-11-08] MEDS: DEX/HYPRO/GLY ARTIFICAL TEARS 225 DROP/15 ML BTL BOTH EYES ×3 (05:45→21:13)
[2024-11-08] MEDS: MIDODRINE 5 MG TABLET GT ×3 (05:45→21:13)
[2024-11-08 07:23] LABS: Basophils % (Auto) 0 % (0-2.5); Eosinophils # (Auto) 0.6 Thou/mm3 (0.0-0.5); Eosinophils % (Auto) 8 % (0-10); Hematocrit 35.3 % (41.0-53.0); Hemoglobin 10.6 g/dL (13.5-16.0); Immature Granulocytes % (Auto) 0 % (0-0); Immature Granulocytes Auto 0.02 Thou/mm3 (0.00-0.00); Lymphocytes # (Auto) 2.6 Thou/mm3 (1.0-4.8); Lymphocytes % (Auto) 36 % (10-50); Mean Corpuscular Hemoglobin 25.7 pg (25.0-35.0); Mean Corpuscular Volume 86 fL (80-100); Monocytes # (Auto) 0.7 Thou/mm3 (0.0-0.8); Monocytes % (Auto) 9 % (0-12); Neutrophils # (Auto) 3.4 Thou/mm3 (1.8-7.7); Neutrophils % (Auto) 46 % (37-80); Nucleated Red Blood Cell % 0 /100 WBC (0); Platelet Count 303 Thou/mm3 (140-440); RDW Standard Deviation 57.2 fL (35.1-43.9); Red Blood Count 4.13 Miln/mm3 (4.50-5.90); White Blood Count 7.4 Thou/mm3 (3.8-10.6)
[2024-11-08 08:02] LABS: Alanine Aminotransferase 8 U/L (10-49); Albumin/Globulin Ratio 1.3 (1.2-2.2); Alkaline Phosphatase 171 U/L (46-116); Anion Gap 9 (7-16); Aspartate Amino Transferase 13 U/L (0-34); BUN/Creatinine Ratio 43 Ratio (12-20); Bilirubin,Total < 0.2 mg/dL (0.3-1.2); Blood Urea Nitrogen 26 mg/dL (9-23); Calcium 12.5 mg/dL (8.3-10.6); Calcium (Corrected) 12.5 mg/dL (8.5-10.1); Carbon Dioxide > 40.0 mMol/L (20.0-31.0); Chloride 102 mMol/L (98-107); Creatinine (Component) 0.6 mg/dL (0.6-1.3); Estimated Creatinine Clearance 118.1 mL/min (>60); Globulin 3.1 gm/dL (2.3-3.5); Glucose 102 mg/dL (74-106); Osmolality,Calculated 304 (275-295); Potassium 3.8 mMol/L (3.4-5.1); Sodium 151 mMol/L (136-145); Total Protein 7.1 gm/dL (5.7-8.2); eGFR > 60 See Note
[2024-11-08] MEDS: ASCORBIC ACID 500 MG TABLET GT (09:04)
[2024-11-08] MEDS: CHOLECALCIFEROL (VITAMIN D3) 25 MCG TABLET 50 MCG PO (09:04)
[2024-11-08] MEDS: FLUCONAZOLE 200 MG TABLET 1200 MG GT (09:04)
[2024-11-08] MEDS: ENOXAPARIN SODIUM 40 MG/0.4 ML SYRINGE SC (09:04)
[2024-11-08] MEDS: levETIRAcetam 100 MG/ML SOLUTION 500 MG GT ×2 (09:05→20:30)
[2024-11-08] MEDS: METOPROLOL 50 MG TABLET 25 MG GT ×2 (09:05→20:33)
[2024-11-08] MEDS: GABAPENTIN 100 MG CAPSULE 200 MG GT ×2 (09:05→20:30)
[2024-11-08] MEDS: MULTIVITAMIN W MINERALS 1 EACH TABLET GT (09:06)
--- NOTE | 2024-11-08 17:05 | PC.NURSE ---
Received CBC and cmp result, dustin Ivory MD. aware and order to add 200ml of water flush each shift x 3 days then repeat CMP after 3 days.
[2024-11-08] MEDS: ATORVASTATIN 10 MG TABLET GT (20:29)
[2024-11-08] MEDS: [UNRECOGNIZED DRUG - OTHER] GT (20:34)
[2024-11-08] MEDS: DOCUSATE GT (20:34)
[2024-11-08] MEDS: ACETAMINOPHEN 325 MG TABLET 650 MG GT (20:35)
[2024-11-09] VITALS (8 sets, daily range): BP systolic 124–140; BP diastolic 69–80; PULSE 66–92; RESP 17–20; TEMP 36.4–36.7; O2SAT 92–96
[2024-11-09] MEDS: METOCLOPRAMIDE 5 MG/5 ML 10 MG GT ×3 (05:14→21:36)
[2024-11-09] MEDS: DEX/HYPRO/GLY ARTIFICAL TEARS 225 DROP/15 ML BTL BOTH EYES ×3 (05:14→21:36)
[2024-11-09] MEDS: MIDODRINE 5 MG TABLET GT (05:15)
[2024-11-09] MEDS: CHOLECALCIFEROL (VITAMIN D3) 25 MCG TABLET 50 MCG PO (09:12)
[2024-11-09] MEDS: ENOXAPARIN SODIUM 40 MG/0.4 ML SYRINGE SC (09:12)
[2024-11-09] MEDS: ASCORBIC ACID 500 MG TABLET GT (09:12)
[2024-11-09] MEDS: FLUCONAZOLE 200 MG TABLET 1200 MG GT (09:15)
[2024-11-09] MEDS: GABAPENTIN 100 MG CAPSULE 200 MG GT ×2 (09:15→21:35)
[2024-11-09] MEDS: METOPROLOL 50 MG TABLET 25 MG GT ×2 (09:16→21:35)
[2024-11-09] MEDS: levETIRAcetam 100 MG/ML SOLUTION 500 MG GT ×2 (09:16→21:35)
[2024-11-09] MEDS: MULTIVITAMIN W MINERALS 1 EACH TABLET GT (09:17)
--- NOTE | 2024-11-09 11:02 | PC.SS ---
Resident will be moved from room 114 to room 123B, resident was notified by this SSD. No questions or concerns from resident. This SSD will follow up with resident and will follow up with new roommate to ensure both are compatible.
[2024-11-09] MEDS: TRAMADOL 50 MG TABLET 25 MG GT (21:30)
[2024-11-09] MEDS: ATORVASTATIN 10 MG TABLET GT (21:35)
[2024-11-09] MEDS: [UNRECOGNIZED DRUG - OTHER] GT (21:36)
[2024-11-09] MEDS: DOCUSATE GT (21:36)
[2024-11-10] VITALS (8 sets, daily range): BP systolic 121–144; BP diastolic 73–83; PULSE 64–87; RESP 8–20; TEMP 35.9–36.3; O2SAT 97–100; BMI 20.2
[2024-11-10] MEDS: DEX/HYPRO/GLY ARTIFICAL TEARS 225 DROP/15 ML BTL BOTH EYES ×3 (05:11→21:18)
[2024-11-10] MEDS: METOCLOPRAMIDE 5 MG/5 ML 10 MG GT ×3 (05:11→21:18)
[2024-11-10] MEDS: ENOXAPARIN SODIUM 40 MG/0.4 ML SYRINGE SC (08:16)
[2024-11-10] MEDS: CHOLECALCIFEROL (VITAMIN D3) 25 MCG TABLET 50 MCG PO (08:16)
[2024-11-10] MEDS: ASCORBIC ACID 500 MG TABLET GT (08:16)
[2024-11-10] MEDS: METOPROLOL 50 MG TABLET 25 MG GT ×2 (08:17→21:18)
[2024-11-10] MEDS: levETIRAcetam 100 MG/ML SOLUTION 500 MG GT ×2 (08:17→21:17)
[2024-11-10] MEDS: FLUCONAZOLE 200 MG TABLET 1200 MG GT (08:17)
[2024-11-10] MEDS: MULTIVITAMIN W MINERALS 1 EACH TABLET GT (08:17)
[2024-11-10] MEDS: GABAPENTIN 100 MG CAPSULE 200 MG GT ×2 (08:17→21:17)
[2024-11-10] MEDS: TRAMADOL 50 MG TABLET 25 MG GT (21:15)
[2024-11-10] MEDS: ATORVASTATIN 10 MG TABLET GT (21:17)
[2024-11-10] MEDS: DOCUSATE GT (21:18)
[2024-11-10] MEDS: [UNRECOGNIZED DRUG - OTHER] GT (21:18)
[2024-11-11] VITALS (7 sets, daily range): BP systolic 99–133; BP diastolic 67–75; PULSE 70–128; RESP 18–31; TEMP 36.4–36.6; O2SAT 98–100
[2024-11-11] MEDS: METOCLOPRAMIDE 5 MG/5 ML 10 MG GT ×2 (05:52→22:51)
[2024-11-11] MEDS: DEX/HYPRO/GLY ARTIFICAL TEARS 225 DROP/15 ML BTL BOTH EYES ×2 (05:52→22:51)
[2024-11-11 07:06] LABS: Alanine Aminotransferase < 7 U/L (10-49); Albumin, Serum 4.2 gm/dL (3.5-5.0); Albumin/Globulin Ratio 1.3 (1.2-2.2); Alkaline Phosphatase 169 U/L (46-116); Anion Gap 12 (7-16); Aspartate Amino Transferase 18 U/L (0-34); BUN/Creatinine Ratio 33 Ratio (12-20); Bilirubin,Total < 0.2 mg/dL (0.3-1.2); Blood Urea Nitrogen 20 mg/dL (9-23); Calcium 12.2 mg/dL (8.3-10.6); Calcium (Corrected) 12.2 mg/dL (8.5-10.1); Carbon Dioxide 38.2 mMol/L (20.0-31.0); Chloride 100 mMol/L (98-107); Creatinine (Component) 0.6 mg/dL (0.6-1.3); Estimated Creatinine Clearance 115.4 mL/min (>60); Globulin 3.3 gm/dL (2.3-3.5); Glucose 100 mg/dL (74-106); Osmolality,Calculated 300 (275-295); Sodium 150 mMol/L (136-145); Total Protein 7.5 gm/dL (5.7-8.2); eGFR > 60 See Note
[2024-11-11] MEDS: ASCORBIC ACID 500 MG TABLET GT (08:57)
[2024-11-11] MEDS: SCOPOLAMINE 1.5 MG TD (08:57)
[2024-11-11] MEDS: CHOLECALCIFEROL (VITAMIN D3) 25 MCG TABLET 50 MCG PO (08:58)
[2024-11-11] MEDS: ENOXAPARIN SODIUM 40 MG/0.4 ML SYRINGE SC (08:58)
[2024-11-11] MEDS: levETIRAcetam 100 MG/ML SOLUTION 500 MG GT ×2 (08:59→19:56)
[2024-11-11] MEDS: FLUCONAZOLE 200 MG TABLET 1200 MG GT (08:59)
[2024-11-11] MEDS: GABAPENTIN 100 MG CAPSULE 200 MG GT ×2 (08:59→19:52)
[2024-11-11] MEDS: METOPROLOL 50 MG TABLET 25 MG GT ×2 (09:00→19:53)
[2024-11-11] MEDS: MULTIVITAMIN W MINERALS 1 EACH TABLET GT (09:01)
--- NOTE | 2024-11-11 14:11 | PC.SS ---
DC Plan: Resident [facility]. He will be transported via gurney transfer. Resident JOSEPHINE Bey Sr. is aware of the transfer. This Transfer has been initiated by resident and father. Charge nurse and DON aware of DC plans.
--- NOTE | 2024-11-11 14:47 | PC.SS ---
DC planning: Resident will be transported via gurney with [facility] mixing picker tender is between 4:30-5:30pm. This SSD notified design agent Adali Gordon and both mom & dad. Resident is aware of tomorrows transfer, with no questions or concerns. PASRR complete. DC packet given to charge nurse.
[2024-11-11] MEDS: ATORVASTATIN 10 MG TABLET GT (19:52)
[2024-11-11] MEDS: [UNRECOGNIZED DRUG - OTHER] 2 EA GT (19:53)
[2024-11-11] MEDS: ACETAMINOPHEN 325 MG TABLET 650 MG GT (19:57)
[2024-11-11] MEDS: DOCUSATE GT (19:57)
[2024-11-11] MEDS: [UNRECOGNIZED DRUG - OTHER] GT (19:57)
[2024-11-11] MEDS: MIDODRINE 5 MG TABLET GT (23:00)
[2024-11-12] VITALS: BP 115/90; PULSE 103; RESP 224; TEMP 36.6
[2024-11-12] MEDS: DEX/HYPRO/GLY ARTIFICAL TEARS 225 DROP/15 ML BTL BOTH EYES ×2 (05:21→13:48)
[2024-11-12] MEDS: METOCLOPRAMIDE 5 MG/5 ML 10 MG GT ×2 (05:21→13:48)
[2024-11-12] MEDS: MIDODRINE 5 MG TABLET GT ×2 (05:23→13:48)
[2024-11-12 06:00] VITALS: BP 127/65; PULSE 78; RESP 22; TEMP 36.1
[2024-11-12 06:47] LABS: Levetiracetam (Keppra)* 15.5 mcg/mL (6.0-46.0)
[2024-11-12 06:55] LABS: Alanine Aminotransferase < 7 U/L (10-49); Albumin/Globulin Ratio 1.2 (1.2-2.2); Alkaline Phosphatase 163 U/L (46-116); Anion Gap 10 (7-16); Aspartate Amino Transferase 17 U/L (0-34); BUN/Creatinine Ratio 42 Ratio (12-20); Bilirubin,Total < 0.2 mg/dL (0.3-1.2); Blood Urea Nitrogen 25 mg/dL (9-23); Calcium 12.3 mg/dL (8.3-10.6); Calcium (Corrected) 12.3 mg/dL (8.5-10.1); Carbon Dioxide > 40.0 mMol/L (20.0-31.0); Chloride 101 mMol/L (98-107); Creatinine (Component) 0.6 mg/dL (0.6-1.3); Estimated Creatinine Clearance 115.4 mL/min (>60); Globulin 3.3 gm/dL (2.3-3.5); Glucose 106 mg/dL (74-106); Osmolality,Calculated 304 (275-295); Phosphorous 4.2 mg/dL (2.4-5.1); Potassium 4.6 mMol/L (3.4-5.1); Sodium 151 mMol/L (136-145); Total Protein 7.3 gm/dL (5.7-8.2); eGFR > 60 See Note
[2024-11-12 07:01] VITALS: PULSE 107; RESP 18; RESP 89; O2SAT 95
[2024-11-12 08:44] VITALS: BP 112/67; PULSE 103
[2024-11-12] MEDS: CHOLECALCIFEROL (VITAMIN D3) 25 MCG TABLET 50 MCG PO (08:44)
[2024-11-12] MEDS: FLUCONAZOLE 200 MG TABLET 1200 MG GT (08:44)
[2024-11-12] MEDS: METOPROLOL 50 MG TABLET 25 MG GT (08:44)
[2024-11-12] MEDS: levETIRAcetam 100 MG/ML SOLUTION 500 MG GT (08:44)
[2024-11-12] MEDS: ASCORBIC ACID 500 MG TABLET GT (08:44)
[2024-11-12] MEDS: GABAPENTIN 100 MG CAPSULE 200 MG GT (08:44)
[2024-11-12] MEDS: [UNRECOGNIZED DRUG - OTHER] 2 EA GT (08:45)
[2024-11-12] MEDS: ENOXAPARIN SODIUM 40 MG/0.4 ML SYRINGE SC (08:45)
[2024-11-12] MEDS: MULTIVITAMIN W MINERALS 1 EACH TABLET GT (08:45)
[2024-11-12] MEDS: ACETAMINOPHEN 325 MG TABLET 650 MG GT (08:45)
[2024-11-12] MEDS: MAGNESIUM HYDROXIDE 30 ML ORAL SUSP ML GT (08:48)
--- NOTE | 2024-11-12 16:28 | PC.NURSE ---
Mr. Rose was discharged and transferred to [facility] at 1600 via [facility] with two EMS. He appeared happy and content when leaving.
== END 2024-11-12 16:11 | disposition other institution (70) | DRG 133 ==
PROVIDERS: Admitting Provider Specialist; Visit Provider Specialist
DX: J96.10 Chronic respiratory failure, unspecified whether with hypoxia or hypercapnia (principal); B38.7 Disseminated coccidioidomycosis; G91.9 Hydrocephalus, unspecified; G82.50 Quadriplegia, unspecified; I10 Essential (primary) hypertension; Z93.1 Gastrostomy status; Z98.2 Presence of cerebrospinal fluid drainage device
CPT/HCPCS: 36415; 80053; 80069; 80177; 84100; 85025

== ENCOUNTER 2025-02-19 14:13 | Inpatient (IN) | payer MEDICAID, SELFPAY ==
[2025-02-19 14:15] VITALS: BP 105/81; PULSE 96; RESP 18; TEMP 37; O2SAT 95
[2025-02-19 14:26] VITALS: PULSE 86
--- NOTE | 2025-02-19 14:30 | XR_ITS ---
Examination: CT brain head without contrast. 2-D sagittal coronal reconstructions Date and time of exam:February 19, 2025, 1557 hours, comparison November 16, 2024 INDICATIONS: Altered mental status today CTDI: vol (mGy):47.2 DLP: (mGycm):961 Technique: Multiple CT axial sections of the brain have been obtained, 5 mm slice thickness. Contrast has not been administered. 2-D sagittal, coronal reconstructions have been obtained Low dose protocols were performed. One or more of the following dose reduction techniques were used; automated exposure control, adjustment of the mA and/or KV according to patient size, use of iterative reconstruction technique. Findings: No significant ventricular enlargement. Ventriculostomy tube satisfactory position The patient's chronic subdural hygromas have resolved Intra-axial or extra-axial hemorrhage density is not seen. No mass effect or midline shift Basal cisterns are not remarkable. Fourth ventricle is midline. Cranial vault intact. Impression: Negative for acute hemorrhage, mass effect or midline shift
--- NOTE | 2025-02-19 14:30 | EKG_ITS ---
[facility] Test Date: 2025-02-19 Pat Name: GISELA PURDY Department: Room: - Gender: Male Special Services Director: : 1970 Requested By: Richard Becker Order Number: [id number] Reading MD: Richard Becker Measurements Intervals [place] Rate: 93 P: 47 NM: 116 QRS: 44 QRSD: 89 T: 94 QT: 267 QTc: 332 Interpretive Statements SINUS RHYTHM WITH SHORT NM INTERVAL MINIMAL VOLTAGE CRITERIA FOR LVH, CONSIDER NORMAL VARIANT [MEETS CRITERIA IN ONE OF: R(aVL), S(V1), R(V5), R(V5/V6)+S(V1)] NONSPECIFIC T-WAVE ABNORMALITY Compared to ECG 11/17/2024 14:46:18 T-wave abnormality now present Sinus tachycardia no longer present ST (T wave) deviation no longer present /store/S0/[id number]/ecg/[id number].pdf
[2025-02-19 14:57] LABS: Base Excess, Venous 9 (-3-3); Lactate (Lactic Acid) 1.4 mMol/L (0.4-2.0); O2 Saturation, Venous 96 % (96-97); PCO2, Venous 45 mmHg (36-56); PO2, Venous 66 mmHg (15-58); pH, Venous 7.48 (7.33-7.66)
[2025-02-19 15:05] LABS: Basophils # (Auto) 0.0 Thou/mm3 (0.0-0.2); Basophils % (Auto) 1 % (0-2.5); Eosinophils # (Auto) 0.3 Thou/mm3 (0.0-0.5); Eosinophils % (Auto) 4 % (0-10); Hematocrit 39.5 % (41.0-53.0); Hemoglobin 12.3 g/dL (13.5-16.0); Immature Granulocytes Auto 0.01 Thou/mm3 (0.00-0.00); Lymphocytes # (Auto) 3.2 Thou/mm3 (1.0-4.8); Lymphocytes % (Auto) 43 % (10-50); Mean Corpuscular HGB Conc 31.1 g/dl (31.0-37.0); Mean Corpuscular Hemoglobin 26.5 pg (25.0-35.0); Mean Corpuscular Volume 85 fL (80-100); Monocytes # (Auto) 0.7 Thou/mm3 (0.0-0.8); Monocytes % (Auto) 9 % (0-12); Neutrophils # (Auto) 3.2 Thou/mm3 (1.8-7.7); Neutrophils % (Auto) 44 % (37-80); Nucleated Red Blood Cell # 0.00 Thou/mm3 (0.00-0.00); Nucleated Red Blood Cell % 0 /100 WBC (0); Platelet Count 288 Thou/mm3 (140-440); RDW Standard Deviation 50.2 fL (35.1-43.9); Red Blood Count 4.64 Miln/mm3 (4.50-5.90); White Blood Count 7.4 Thou/mm3 (3.8-10.6)
[2025-02-19 15:20] LABS: INR 1.0 (0.9-1.3); Prothrombin Time 11.4 Seconds (9.0-12.2)
[2025-02-19 15:41] LABS: Acetaminophen < 2.0 mcg/mL (10.0-20.0); Alanine Aminotransferase 7 U/L (10-49); Albumin, Serum 4.2 gm/dL (3.5-5.0); Albumin/Globulin Ratio 1.2 (1.2-2.2); Alcohol, Blood Medical < 3.0 mg/dL (0-10.0); Alkaline Phosphatase 153 U/L (46-116); Anion Gap 10 (7-16); Aspartate Amino Transferase 10 U/L (0-34); BUN/Creatinine Ratio 14 Ratio (12-20); Bilirubin,Total 0.3 mg/dL (0.3-1.2); Blood Urea Nitrogen 19 mg/dL (9-23); Carbon Dioxide 31.9 mMol/L (20.0-31.0); Chloride 105 mMol/L (98-107); Creatinine (Component) 1.4 mg/dL (0.6-1.3); Globulin 3.5 gm/dL (2.3-3.5); Glucose 106 mg/dL (74-106); Magnesium 1.8 mg/dL (1.6-2.6); Osmolality,Calculated 294 (275-295); Potassium 3.1 mMol/L (3.4-5.1); Procalcitonin 1.38 ng/ml (0.0-0.49); Salicylate < 3.0 mg/dL; Sodium 147 mMol/L (136-145); Thyroid Stimulating Hormone 0.81 uIU/mL (0.55-4.78); Total Protein 7.7 gm/dL (5.7-8.2); Troponin I 0.020 ng/mL (0.0-0.045); eGFR 59 See Note
[2025-02-19] MEDS: SODIUM CHLORIDE 0.9% 1000 ML 1,000 ML IV (15:54)
--- NOTE | 2025-02-19 16:07 | XR_ITS ---
Examination: AP chest single view TECHNIQUE: AP portable semiupright chest single view Date and time: February 19, 2025, 1610 hours, comparison November 18, 2024 INDICATIONS: Coughing today. FINDINGS: Minor subsegmental atelectasis left midlung Normal heart size No pneumonia or pulmonary edema Right ventricular peritoneal shunt tube noted IMPRESSION: No pneumonia identified
[2025-02-19 16:25] LABS: Calcium 15.1 mg/dL (8.3-10.6); Calcium (Corrected) 15.1 mg/dL (8.5-10.1)
--- NOTE | 2025-02-19 16:26 | PC.NURSE ---
Lab called, patient has critcal lab value, calcium 15.1. MD Chowdary notified.
[2025-02-19 16:58] VITALS: BP 111/65; PULSE 84; RESP 18; TEMP 37.2; O2SAT 97
[2025-02-19] MEDS: POTASSIUM CHL 10 mEq IVPB 10 MEQ/100 ML BAG 100 MEQ IV ×3 (17:20→20:06)
[2025-02-19] MEDS: SODIUM CHLORIDE 0.9% IV (17:43)
[2025-02-19] MEDS: PAMIDRONATE IV (17:43)
--- NOTE | 2025-02-19 18:06 | EDNOTE_ITS ---
ED General RME/HPI General Chief complaint: Altered Mental Status Stated complaint: CONFUSION, NOT EATING OR DRINKING LAST FEW DAYS Time Seen by Provider: 02/19/25 14:22 Arrival date/time: 02/19/25 14:13 Limitations: no limitations RME / HPI RME / HPI narrative: 54 year old male with history of chronic respiratory failure on 3L O2 at baseline, quadriplegia, hx of coccidiomycosis, hypertension, diabetes, hyperli pidemia, hydrocephalus s/p LINE MANAGER shunt, s/p PEG tube presents to the ED BIBA from [facility] transitional care for evaluation of confusion and anorexia. In the ED, patient is able to answer some questions though not able to verbalize sentences. Patient is on hospice and a full code. Related Data Home Medications ?Medication ?Instructions ?Recorded ?Confirmed bisacodyl 10 mg rectal suppository 10 mg NC Q72H PRN c onstipation 11/17/24 11/17/24 bisacodyl 10 mg rectal suppository 10 mg NC QDAY PRN c onstipation 11/17/24 11/17/24 (Dulcolax (bisacodyl)) lorazepam 0.5 mg tablet (Ativan) 0.5 mg PO Q6H PRN anx iety 11/17/24 11/17/24 magnesium hydroxide 400 mg/5 mL 30 ml PO Q72H PRN cons tipation 11/17/24 11/17/24 oral suspension (Milk of Magnesia) morphine 20 mg/5 mL (4 mg/mL) oral 1 mg PO Q2H PRN sandra n (scale score 11/17/24 11/17/24 solution 1-3) morphine 20 mg/5 mL (4 mg/mL) oral 2 mg PO Q2H PRN sandra n (scale score 11/17/24 11/17/24 solution 4-6) morphine 20 mg/5 mL (4 mg/mL) oral 4 mg PO Q2H PRN sandra n (scale score 11/17/24 11/17/24 solution 7-10) sodium phosphates 19 gram-7 118 ml NC Q72H PRN constip ation 11/17/24 11/17/24 gram/118 mL enema (Fleet Enema) Previous Rx's ?Medication ?Instructions ?Recorded atorvastatin 40 mg tablet 40 mg PO HS #30 tabs 5 ferrous sulfate 325 mg (65 mg 325 mg PO QDAY #30 tabs 11/19/24 iron) tablet (Feosol) fluconazole 200 mg tablet 400 mg (2 x 200 mg) feeding tube 11/20/24 QDAY disseminated coccidioidomycosis #30 tabs desmopressin 0.1 mg tablet 0.1 mg PO DAILY #30 tabs Allergies Allergy/AdvReac Type Severity Reaction Status Date / Time No Known Allergies Allergy Verified 02/19/25 14:55 Review of Systems Review of Systems Systems Reviewed: All systems reviewed, normal except as documented Past Medical History Past Medical History NEUROLOGIC: Positive Neurological Disorders, Cerebrovascular Accident and Meningitis CARDIAC: Positive Cardiac Disorders, Hypercholesterolemia and Hypertension GASTROINTESTINAL: Positive Gastrointestinal Disorders and Gastroesophageal Reflux Disease ENDOCRINE: Positive Endocrine Disorders and Diabetes Mellitus Type 2 Surgical History SURGICAL: Positive Gastrostomy and Brain Shunt Social History SMOKING STATUS: Never smoker ED Exam General Limitations: Present no limitations General appearance: Present alert and other (thin, emaciated, chronically ill appearing) Head Head exam: Present atraumatic Eye Eye exam: Present PERRL, EOMI and other (?purulent left eyelid, conjuctive were clear, no erythema) ENT ENT exam: Present normal exam, normal oropharynx and mucous membranes moist Neck Neck exam: Present normal inspection, full ROM and trachea midline Chest Chest inspection: Present normal inspection and symmetric chest wall rise Respiratory Respiratory exam: Present normal lung sounds bilaterally Cardiovascular Cardiovascular exam: Present regular rate, normal rhythm and normal heart sounds Abdominal Exam Abdominal exam: Present normal bowel sounds and other (Firm, no masses, nontender) Extremities Exam Extremities exam: Present other (lower extremity contracture?) Back Exam Back exam: Present normal inspection and full ROM Neurological Exam Neurological exam: Present alert, CN II-XII intact and other (bilateral lower extremity contracture ) Psychiatric Psychiatric exam: Present normal affect and normal mood Skin Skin exam: Present warm, dry, normal color and other (unable to inspect back) Course Quality Measures none Orders Category Date Time Status Bedside Blood Glucose NOW Care 02/19/25 14:30 Active Wash And Greaser NOW Care 02/19/25 14:30 Active Continuous Pulse Oximetry NOW Care 02/19/25 14:30 Active EKG (ED ONLY) *Do not use* NOW Care 02/19/25 14:30 Completed In and Out Catheter X1 Care 02/19/25 14:30 Active Insert IV NOW Care 02/19/25 14:30 Active NPO NOW Care 02/19/25 14:[address] head/brain wo con Stat Exams 02/19/25 14:30 Completed CXRP [XR chest 1V portable] Stat Exams 02/19/25 16:07 Completed EKG (ED Only) Stat Exams 02/19/25 14:30 Draft Acetaminophen Stat Lab 02/19/25 14:50 Completed Alcohol, Blood Medical Stat Lab 02/19/25 14:50 Completed Blood Culture (Lab) Stat Lab 02/19/25 14:52 Received CBC Stat Lab 02/19/25 14:50 Completed Comprehensive Metabolic Panel Stat Lab 02/19/25 14:50 Completed Drug Screen,Urine Stat Lab 02/19/25 14:30 Ordered Lactate (Lactic Acid) Stat Lab 02/19/25 14:50 Completed Magnesium Stat Lab 02/19/25 14:50 Completed Procalcitonin Stat Lab 02/19/25 14:50 Completed Prothrombin Time with INR Stat Lab 02/19/25 14:50 Completed Salicylate Stat Lab 02/19/25 14:50 Completed Thyroid Stimulating Hormone Stat Lab 02/19/25 14:50 Completed Troponin I Stat Lab 02/19/25 14:50 Completed Venous Blood Gas Stat Lab 02/19/25 14:50 Completed Metoprolol Tartrate Inj [Lopressor Inj] Med 02/19/25 17:10 Stop Req 5 mg IVP X1 ONE POTASSIUM CHL 10 mEq IVPB [Kcl Ivpb] Med 02/19/25 16:55 Active 10 meq in 100 ml IV Q1H Pamidronate Inj [Aredia Inj] Med 02/19/25 16:54 Discontinued 60 mg IV X1 ONE Pamidronate Inj [Aredia Inj] 60 mg Med 02/19/25 17:15 Active Sodium Chloride 0.9% 1000 ml [Ns] 1,000 ml IV X1 Pantoprazole Inj [Protonix Inj] Med 02/19/25 16:54 Discontinued 40 mg IVP X1 ONE Sodium Chloride 0.9% 1000 ml [Ns] 1,000 ml Med 02/19/25 14:30 Discontinued IV 1,000 mls/hr Oxygen Delivery NOW RT 02/19/25 14:30 Active Vital Signs Vital signs: Vital Signs Temperature 98.6 F 02/19/25 14:15 Pulse Rate 96 02/19/25 14:15 Respiratory Rate 18 02/19/25 14:15 Blood Pressure 105/81 02/19/25 14:15 Pulse Oximetry (%) 95 02/19/25 14:15 Oxygen Delivery Method Room Air 02/19/25 14:15 Pulse ox is 95% on room air which is adequate. Critical Care Time Critical Care Time Critical Care Time: Yes Total Critical Care Time (min.): 35 Attestation: The high probability of sudden, clinically significant deterioration in the patient's condition required the highest level of my preparedness to intervene urgently. The services I provided to this patient were to treat and/or prevent clinically significant deterioration. Services included the following: chart data review, reviewing nursing notes and/or old charts, documentation time, cardiology consultants collaboration regarding findings and treatment options, medication orders and management, direct patient care, vital sign assessments and ordering, interpreting and reviewing diagnostic studies and lab tests. Aggregate critical care time includes only time during which I was engaged in work directly related to the patient's care, as described above, whether at bedside or elsewhere in the Emergency Department. It did not include time spent performing other reported procedures or the services of residents, students, nurses or physician assistants. Discharge Plan Plan Patient Disposition: Admit Acute Care w/in Hospital Problem List Clinical Impression: Hypercalcemia MDM Clinical Information Provided by patient and EMS Medical [facility] and [facility] Meds/Rx Considered, not Ordered None Labs/Rad/Tests considered, not Ordered None Chronic Illness/Social Conditions which may negatively complicate care or outcome(s)-explain: senior living/debilitated EKG EKG Interpretation narrative: EKG @ 1510 NSR with short NC interval, rate 93, nonspecific T-wave abnormality, no STEMI. Lab Interpretation Labs: interpreted by nc Lab(s) interpretation(s): Hypercalcemia 15.1 Imaging Radiology reports / interpretation(s): Ordering Physician: Richard Chowdary MD Date of Service: 02/19/25 Procedure(s): CT head/brain wo con Accession Number(s): [id number] cc: Richard Chowdary MD; Karthikeyan Murrell MD; NO PRIMARY/FAMILY,PHYSICIAN~ Examination: CT brain head without contrast. 2-D sagittal coronal reconstructions Date and time of exam:February 19, 2025, 1557 hours, comparison November 16, 2024 INDICATIONS: Altered mental status today CTDI: vol (mGy):47.2 DLP: (mGycm):961 Technique: Multiple CT axial sections of the brain have been obtained, 5 mm slice thickness. Contrast has not been administered. 2-D sagittal, coronal reconstructions have been obtained Low dose protocols were performed. One or more of the following dose reduction techniques were used; automated exposure control, adjustment of the mA and/or KV according to patient size, use of iterative reconstruction technique. Findings: No significant ventricular enlargement. Ventriculostomy tube satisfactory position The patient's chronic subdural hygromas have resolved Intra-axial or extra-axial hemorrhage density is not seen. No mass effect or midline shift Basal cisterns are not remarkable. Fourth ventricle is midline. Cranial vault intact. Impression: Negative for acute hemorrhage, mass effect or midline shift Dictated By: Karthikeyan Murrell MD Signed By: <Electronically signed by Karthikeyan Murrell MD in OV> 02/19/25 1523 Ordering Physician: Richard Chowdary MD Date of Service: 02/19/25 Procedure(s): XR chest 1V portable Accession Number(s): [id number] cc: Richard Chowdary MD; Karthikeyan Murrell MD; NO PRIMARY/FAMILY,PHYSICIAN~ Examination: AP chest single view TECHNIQUE: AP portable semiupright chest single view Date and time: February 19, 2025, 1610 hours, comparison November 18, 2024 INDICATIONS: Coughing today. FINDINGS: Minor subsegmental atelectasis left midlung Normal heart size No pneumonia or pulmonary edema Right ventricular peritoneal shunt tube noted IMPRESSION: No pneumonia identified Dictated By: Karthikeyan Murrell MD Signed By: <Electronically signed by Karthikeyan Murrell MD in OV> 02/19/25 1628 Medication Administration(s) Medication Administration History Acetaminophen (Acetaminophen 325 Mg Tablet) 650 mg PO Q6H PRN PRN Reason: Fever >101.5 or pain 1-3 Stop: 03/21/25 17:42 Heparin Sodium (Porcine) (Heparin Sod Inj 5000 Unit/Ml Vial) 5,000 unit SC Q8HR [facility] Stop: 03/05/25 21:59 Potassium Chloride (Kcl Ivpb) 10 meq in 100 mls @ 100 mls/hr IV Q1H [facility] Stop: 02/19/25 19:54 Last Admin: 02/19/25 17:20 Dose: 100 mls/hr Documented By: JOSE M Pamidronate Disodium 60 mg/ (Sodium Chloride) 1,006.6667 mls @ 167.778 mls/hr IV X1 ONE Stop: 02/19/25 23:14 Last Admin: 02/19/25 17:43 Dose: 167.778 mls/hr Documented By: JOSE M Co-signed By: SWATI Lactated Ringer's (Lactated Ringers) 1,000 mls @ 200 mls/hr IV .Q5H ONE Stop: 02/19/25 22:50 Pantoprazole Sodium (Pantoprazole Inj 40 Mg Vial) 40 mg IVP Q12HR [facility] Stop: 03/21/25 20:59 Sennosides (Senna Tablet) 1 tab PO QDAY CRISTINA; Protocol Stop: 03/22/25 08:59 Discontinued Medications Denosumab (Denosumab Inj 60 Mg/Ml Syringe) 60 mg SC X1 ONE Stop: 02/19/25 18:01 Sodium Chloride (Ns) 1,000 mls @ 1,000 mls/hr IV .Q1H ONE Stop: 02/19/25 15:29 Last Admin: 02/19/25 15:54 Dose: 1,000 mls/hr Documented By: CAROLINA Sodium Chloride (Ns) 1,000 mls @ 999 mls/hr IV .Q1H1M [facility] Stop: 03/21/25 17:47 Lactated Ringer's (Lactated Ringers) 1,000 mls @ 125 mls/hr IV .Q8H ONE Stop: 02/20/25 01:50 Sodium Chloride (Ns) 1,000 mls @ 300 mls/hr IV .Q3H20M [facility] Stop: 03/21/25 19:59 Metoprolol Tartrate (Metoprolol Tartrate Inj 1 Mg/Ml Amp 5 Ml) 5 mg IVP X1 ONE Stop: 02/19/25 17:11 Multivitamins/Minerals (Multivitamin 15 Ml Udc) 15 ml PO X1 ONE Stop: 02/19/25 17:59 Pamidronate Disodium (Pamidronate Inj 30 Mg/10 Ml Vial) 60 mg IV X1 ONE Stop: 02/19/25 16:55 Pantoprazole Sodium (Pantoprazole Inj 40 Mg Vial) 40 mg IVP X1 ONE Stop: 02/19/25 16:55 Last Admin: 02/19/25 17:20 Dose: 40 mg Documented By: CS Potassium Chloride (Potassium Chloride 20 Meq Tabcr) 40 meq PO X1 ONE Stop: 02/19/25 17:56 Potassium Phos/Sodium Phos (Naph,[facility] Mbdb 1 Packet (1.5 Gm)) 1 packet PO X1 ONE Stop: 02/19/25 18:00 Thiamine HCl (Thiamine 100 Mg Tablet) 100 mg PO X1 ONE Stop: 02/19/25 17:57 See above Diagnosis Most likely dx, and/or detailed dx discussion: Hypercalcemia Dispositon Disposition: Admit
[2025-02-19 18:09] VITALS: BP 114/72; PULSE 98; RESP 17; TEMP 36.4; O2SAT 98
--- NOTE | 2025-02-19 18:22 | PD.RESHP ---
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 Per nurse, patient has been increasingly lethargic, refusing food, and minimally interactive compared to his baseline. At baseline, he is bedbound but usually alert and able to answer questions appropriately. On arrival to the ED, patient was lethargic but arousable, oriented to self and place, able to answer yes/no questions but not speaking in full sentences. Endorsed headache, denied chest pain, shortness of breath, abdominal pain, nausea, vomiting, or seizure-like activity. History is limited due to altered mental status. ED Course: Vitals: BP 105/81, HR 96, RR 18, afebrile, 95% on room air Labs: Ca 15.1, Na 147, K 3.1, Phos 1.7, Mg 1.8, Cr 1.4; PCT 1.38; trop neg; VBG alkalemic. EKG NSR short AL; CXR no PNA Imaging: CT head negative for acute pathology. Given NS 1 L IV bolus in the ED Admitted for altered mental status secondary to hypercalcemia ROS as above, limited due to altered mental status. Past Medical History: As above Surgical History: [employer] shunt placement Medications: Fluconazole, desmopressin, atorvastatin (pending med recs) Allergies: NKDA Family history: Unable to obtain Social history: SNF resident; bedbound. Unable to obtain due to altered mental status. Exam Vital Signs Temp Pulse Resp BP Pulse Ox O2 Del Method 97.6 F 98 17 114/72 98 Room Air 02/19/25 18:02/19/25 18:02/19/25 18:02/19/25 18:02/19/25 18:02/19/25 18:09 Narrative Exam Physical Exam General: Lethargic. Able to answer questions appropriately but slow. Cachetic and disheveled. Bedbound. HEENT: Normocephalic, atraumatic, mucous membranes dry. Heart: Regular rate and rhythm, normal S1 and S2, no murmurs. Lungs: Clear to auscultation with no wheezing or crackles. Abdomen: Soft, nondistended, nontender, positive bowel sounds. No guarding or rebound tenderness. Neurologic: Alert and oriented x2 (oriented to self and place, not time). Extremities: No edema. Skin: Few scabs and scratches on legs bilaterally. Results: Labs 02/20/25 04:55 02/20/25 11:05 Labs: Short CBC 02/19/25 Range/Units 14:50 WBC 7.4 (3.8-10.6) Thou/mm3 Hgb 12.3 L (13.5-16.0) g/dL Hct 39.5 L (41.0-53.0) % Plt Count 288 (140-440) Thou/mm3 BMP 02/19/25 14:50 Sodium 147 H Potassium 3.1 L Chloride 105 Carbon Dioxide 31.9 H BUN 19 Creatinine 1.4 H Glucose 106 Calcium 15.1 H* Cardiac Enzymes 02/19/25 Range/Units 14:50 Troponin I 0.020 (0.0-0.045) ng/mL Liver Function 02/19/25 Range/Units 14:50 Total Bilirubin 0.3 (0.3-1.2) mg/dL AST 10 (0-34) U/L ALT 7 L (10-49) U/L Alkaline Phosphatase 153 H (46-116) U/L Albumin 4.2 (3.5-5.0) gm/dL ABG Interpretation ABG results: 02/19/25 14:50 VBG pH 7.48 VBG pCO2 45 VBG pO2 66 H VBG Base Excess 9 H Quality Measures Quality Measures VTE prophylaxis Medications Home Medications and Allergies Home Medications ?Medication ?Instructions ?Recorded ?Confirmed ?Type bisacodyl 10 mg rectal suppository 10 mg AL Q72H PRN constipation 11/17/24 02/19/25 History bisacodyl 10 mg rectal suppository 10 mg AL QDAY PRN constipation 11/17/24 02/19/25 History (Dulcolax (bisacodyl)) lorazepam 0.5 mg tablet (Ativan) 0.5 mg PO Q6H PRN anxiety 11/17/24 02/19/25 History magnesium hydroxide 400 mg/5 mL 30 ml PO Q72H PRN constipation 11/17/24 02/19/25 History oral suspension (Milk of Magnesia) morphine 20 mg/5 mL (4 mg/mL) oral 2 mg PO Q2H PRN pain (scale score 11/17/24 02/19/25 History solution 4-6) morphine 20 mg/5 mL (4 mg/mL) oral 4 mg PO Q2H PRN pain (scale score 11/17/24 02/19/25 History solution 7-10) sodium phosphates 19 gram-7 118 ml AL Q72H PRN constipation 11/17/24 02/19/25 History gram/118 mL enema (Fleet Enema) artificial tears solution eye drops 2 drp ophthalmic (eye) .Q4 HRS PRN 02/19/25 02/19/25 History dry eyes cranberry fruit 450 mg tablet 450 mg PO QDAY 02/19/25 02/19/25 History (cranberry) fluconazole 200 mg tablet 400 mg PO QDAY disseminated 02/19/25 02/19/25 History coccidioidomycosis hydrocodone 5 mg-acetaminophen 325 1 tab PO Q8H PRN pain, moderate 02/19/25 02/19/25 History mg tablet ibuprofen 400 mg tablet (IBU) 400 mg PO Q8H PRN mild pain (scale 02/19/25 02/19/25 History score 1-4) naloxone 4 mg/actuation nasal 1 spray intranasal Q2M 02/19/25 02/19/25 History spray (Rextovy) sertraline 50 mg tablet (Zoloft) 50 mg PO QDAY 02/19/25 02/19/25 History Allergies Allergy/AdvReac Type Severity Reaction Status Date / Time No Known Allergies Allergy Verified 02/19/25 14:55 Visit Medications Acetaminophen (Acetaminophen 325 Mg Tablet) 650 mg PO Q6H PRN PRN Reason: Fever >101.5 or pain 1-3 Stop: 03/21/25 17:42 Desmopressin Acetate (Desmopressin Acetate 4 Mcg/Ml Vial) 1 mcg IV QDAY [facility] Stop: 03/22/25 08:59 Fluconazole (Fluconazole 100 Mg Tablet) 400 mg PO QDAY [facility] Stop: 02/27/25 08:59 Heparin Sodium (Porcine) (Heparin Sod Inj 5000 Unit/Ml Vial) 5,000 unit SC Q8HR [facility] Stop: 03/05/25 21:59 Potassium Chloride (Kcl Ivpb) 10 meq in 100 mls @ 100 mls/hr IV Q1H [facility] Stop: 02/19/25 19:54 Last Admin: 02/19/25 17:20 Dose: 100 mls/hr Pamidronate Disodium 60 mg/ (Sodium Chloride) 1,006.6667 mls @ 167.778 mls/hr IV X1 ONE Stop: 02/19/25 23:14 Last Admin: 02/19/25 17:43 Dose: 167.778 mls/hr Lactated Ringer's (Lactated Ringers) 1,000 mls @ 200 mls/hr IV .Q5H ONE Stop: 02/19/25 22:50 Pantoprazole Sodium (Pantoprazole Inj 40 Mg Vial) 40 mg IVP Q12HR [facility] Stop: 03/21/25 20:59 Sennosides (Senna Tablet) 1 tab PO QDAY [facility]; Protocol Stop: 03/22/25 08:59 Discontinued Medications Denosumab (Denosumab Inj 60 Mg/Ml Syringe) 60 mg SC X1 ONE Stop: 02/19/25 18:01 Sodium Chloride (Ns) 1,000 mls @ 1,000 mls/hr IV .Q1H ONE Stop: 02/19/25 15:29 Last Admin: 02/19/25 15:54 Dose: 1,000 mls/hr Sodium Chloride (Ns) 1,000 mls @ 999 mls/hr IV .Q1H1M [facility] Stop: 03/21/25 17:47 Lactated Ringer's (Lactated Ringers) 1,000 mls @ 125 mls/hr IV .Q8H ONE Stop: 02/20/25 01:50 Sodium Chloride (Ns) 1,000 mls @ 300 mls/hr IV .Q3H20M [facility] Stop: 03/21/25 19:59 Metoprolol Tartrate (Metoprolol Tartrate Inj 1 Mg/Ml Amp 5 Ml) 5 mg IVP X1 ONE Stop: 02/19/25 17:11 Multivitamins/Minerals (Multivitamin 15 Ml Udc) 15 ml PO X1 ONE Stop: 02/19/25 17:59 Pamidronate Disodium (Pamidronate Inj 30 Mg/10 Ml Vial) 60 mg IV X1 ONE Stop: 02/19/25 16:55 Pantoprazole Sodium (Pantoprazole Inj 40 Mg Vial) 40 mg IVP X1 ONE Stop: 02/19/25 16:55 Last Admin: 02/19/25 17:20 Dose: 40 mg Potassium Chloride (Potassium Chloride 20 Meq Tabcr) 40 meq PO X1 ONE Stop: 02/19/25 17:56 Potassium Phos/Sodium Phos (Naph,[facility] 1 Packet (1.5 Gm)) 1 packet PO X1 ONE Stop: 02/19/25 18:00 Thiamine HCl (Thiamine 100 Mg Tablet) 100 mg PO X1 ONE Stop: 02/19/25 17:57 Assessment & Plan Plan Patient is a 54 year old male with a past medical history significant for chronic respiratory failure on 3L O2 at baseline, quadriplegia, history of disseminated coccidiomycosis, primary hypertension, [id number] diabetes mellitus type 2, hyperlipidemia, hydrocephalus s/p [employer] shunt presenting on 02/19 for altered mental status, admitted for AMS likely secondary to hypercalcemia. #Altered mental status #Hypercalcemia #Bedbound Presented with altered mental status and calcium of 15.1 (previous calcium November 2024 was 8.4). Facility reports that he has not been eating for a few days. Patient was previously a PEG tube but was removed, usually able to tolerate oral feeding. Reports this is due to decreased appetite and difficulty swallowing (will not specify beyond this), denies nausea or vomiting. Also endorses fatigue, denies any seizure-like activity. Patient is bed bound. Baseline mentation usually GCS 14. Able to respond appropriately to questions on exam however appears very fatigued and lethargic. Oriented to self and place but not time. S/p 1 L NS in ED. Plan: - IV LR 1 L at 200 mL/h maintenance fluid - Pamidronate injection 60 mg x1 - Consulted correspondence review clerk Dr. Richardson, appreciate recommendations - Consider starting on denosumab per nephro - Strict ins and outs - F/u PTH - CTM calcium #Hypophosphatemia #Hypomagnesemia #Hypokalemia On admission, sodium 147, potassium 3.1, phosphorus 1.7. Likely secondary to inadequate nutrition. -Replete accordingly -CTM electrolyte panel #Failure to thrive Previously on hospice and refusing to eat. - Thiamine daily - MV daily # History of disseminated cocci - Continue fluconazole #Central DI #Hypernatremia -continue desmopressin #History anxiety #History of depression - Zoloft 50 mg nightly starting tomorrow - Ativan 0.5mg q8hr as needed Health Maintenance Disposition: Telemetry DVT prophylaxis: Heparin GI prophylaxis: Protonix Diet: N.p.o., pending swallow screen CODE STATUS: Full Patient plan of care was discussed with the attending physician, Dr. Lagunas. Massiel Pringle, PGY-1 Attending Provider Attestation/Addendum I attest that I was physically present for the evaluation, physical examination, lab and imaging review of the patient with the residents. I discussed the case with the residents and agree with the findings and plans of care as documented above. After examination of the patient and review of the clinical data I feel that this patient needs admission to the hospital for further treatment/evaluation. 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 At bedside, patient was possible, only answering few partial questions, oriented x 2. Vitals are stable, saturating well on room air. Lab results show calcium of 15.1, sodium 147, potassium 3.1, phosphate 1.7, magnesium 1.8, creatinine 1.4. We will admit the patient for management of altered mental status likely secondary to decreased oral intake and severe hypercalcemia along with multiple electrolyte imbalances. Patient received pamidronate injection in the ED, we will start him on aggressive IV hydration and monitor calcium level closely. We will obtain nephrology consult, replete electrolytes as needed. Also started patient on thiamine and multivitamin, we will encourage oral intake. We will continue fluconazole for history of disseminated cocci, desmopressin for hypernatremia, Zoloft/Ativan for anxiety/depression. Tova Lagunas MD
[2025-02-19] MEDS: THIAMINE 100 MG TABLET PO (19:22)
[2025-02-19] MEDS: MULTIVITAMIN 15 ML UDC PO (19:22)
[2025-02-19] MEDS: NAPH,KPH MBDB 1 PACKET (1.5 GM) PO (19:22)
[2025-02-19 19:55] VITALS: PULSE 72; PULSE 90; O2SAT 100
[2025-02-19] MEDS: RINGERS LACTATED 1000 ML 1,000 ML 200 ML IV (20:06)
[2025-02-19 20:30] VITALS: BP 134/89; PULSE 80; RESP 20; TEMP 36.1; O2SAT 100
[2025-02-19 21:10] LABS: Amphetamine/Methamp Scrn,U Negative (Negative); Barbiturate Screen,Urine Negative (Negative); Benzodiazepines Screen,Urine Negative (Negative); Benzoylecgonine Screen, Ur Negative (Negative); Fentanyl Screen,Urine Negative (Negative); Opiate Screen,Urine Positive (Negative); THC Screen,Urine Negative (Negative)
[2025-02-19] MEDS: HEPARIN SOD INJ 5000 UNIT/ML VIAL SC (21:17)
[2025-02-20] VITALS (10 sets, daily range): BP systolic 123–166; BP diastolic 84–105; PULSE 76–109; RESP 13–22; TEMP 36.3–36.8; O2SAT 96–100; BMI 17.0
[2025-02-20] MEDS: ACETAMINOPHEN 325 MG TABLET 650 MG PO (04:38)
[2025-02-20] MEDS: HEPARIN SOD INJ 5000 UNIT/ML VIAL SC ×3 (05:13→21:36)
[2025-02-20 05:49] LABS: Basophils # (Auto) 0.0 Thou/mm3 (0.0-0.2); Basophils % (Auto) 1 % (0-2.5); Eosinophils # (Auto) 0.3 Thou/mm3 (0.0-0.5); Eosinophils % (Auto) 4 % (0-10); Hematocrit 37.9 % (41.0-53.0); Hemoglobin 11.9 g/dL (13.5-16.0); Immature Granulocytes Auto 0.01 Thou/mm3 (0.00-0.00); Lymphocytes # (Auto) 2.9 Thou/mm3 (1.0-4.8); Lymphocytes % (Auto) 40 % (10-50); Mean Corpuscular HGB Conc 31.4 g/dl (31.0-37.0); Mean Corpuscular Hemoglobin 26.9 pg (25.0-35.0); Mean Corpuscular Volume 86 fL (80-100); Monocytes # (Auto) 0.7 Thou/mm3 (0.0-0.8); Monocytes % (Auto) 10 % (0-12); Neutrophils # (Auto) 3.3 Thou/mm3 (1.8-7.7); Neutrophils % (Auto) 45 % (37-80); Nucleated Red Blood Cell # 0.00 Thou/mm3 (0.00-0.00); Nucleated Red Blood Cell % 0 /100 WBC (0); Platelet Count 286 Thou/mm3 (140-440); RDW Standard Deviation 49.3 fL (35.1-43.9); Red Blood Count 4.43 Miln/mm3 (4.50-5.90); White Blood Count 7.3 Thou/mm3 (3.8-10.6)
[2025-02-20 06:20] LABS: Alanine Aminotransferase < 7 U/L (10-49); Albumin, Serum 4.0 gm/dL (3.5-5.0); Albumin/Globulin Ratio 1.3 (1.2-2.2); Alkaline Phosphatase 143 U/L (46-116); Anion Gap 10 (7-16); Aspartate Amino Transferase 11 U/L (0-34); BUN/Creatinine Ratio 15 Ratio (12-20); Bilirubin,Total 0.3 mg/dL (0.3-1.2); Blood Urea Nitrogen 16 mg/dL (9-23); Carbon Dioxide 29.5 mMol/L (20.0-31.0); Chloride 111 mMol/L (98-107); Creatinine (Component) 1.1 mg/dL (0.6-1.3); Globulin 3.2 gm/dL (2.3-3.5); Glucose 85 mg/dL (74-106); Magnesium 1.5 mg/dL (1.6-2.6); Osmolality,Calculated 298 (275-295); Phosphorous 2.7 mg/dL (2.4-5.1); Potassium 3.8 mMol/L (3.4-5.1); Sodium 150 mMol/L (136-145); Total Protein 7.2 gm/dL (5.7-8.2); eGFR > 60 See Note
[2025-02-20 06:35] LABS: Calcium 14.6 mg/dL (8.3-10.6); Calcium (Corrected) 14.6 mg/dL (8.5-10.1)
[2025-02-20] MEDS: DEXTROSE 5%-WATER 1,000 ML 80 ML IV (08:56)
[2025-02-20] MEDS: Magnesium Sulfate 2 GM Ivpb 2 GM/50 ML BAG IV (08:56)
[2025-02-20] MEDS: FLUCONAZOLE 100 MG TABLET 400 MG PO (08:57)
[2025-02-20] MEDS: DESMOPRESSIN ACETATE 4 MCG/ML VIAL 1 MCG IV (09:30)
[2025-02-20] MEDS: THIAMINE 100 MG TABLET PO (09:31)
[2025-02-20] MEDS: POTASSIUM CHLORIDE 10% 20 MEQ/15 ML UDC 40 MEQ PO (09:31)
--- NOTE | 2025-02-20 10:53 | PD.NEPHCONS ---
History of Present Illness Data of Consult Consult date: 02/20/25 Requesting Physician: Tova Lagunas MD Primary Care Provider: Physician No Primary/Family Consult Narrative Reason for consult: Hypercalcemia History of present illness: Patient seems to be confused-chart review done and spoke to nurse Extensive medical history-Mr. Bey is a 54 year [facility] with confusion, decreased p.o. intake. He has past medical history significant for chronic respiratory failure on 3L O2 at baseline, quadriplegia, history of disseminated coccidiomycosis(no records of that available in our hospital), primary hypertension, [id number] diabetes mellitus type 2, hyperlipidemia, hydrocephalus s/p [employer] shunt and PEG tube which was removed. On admission he was noted to have severe hypercalcemia. ER provider gave 1 dose of pamidronate. Patient was started on IV fluids and was admitted toTelemetry. Renal consultation requested for hypercalcemia. Rehab medications included atorvastatin, desmopressin, iron, fluconazole, [place], ibuprofen, Zoloft 02/20/2025 Patient currently seen in telemetry. He seems to be confused and quadriplegic in bed. Looks older than his stated age. Blood pressure 154/87, heart rate 85, afebrile. WBC 7.3, hemoglobin 11.9, platelets 286. Sodium 144, potassium 3.8, creatinine 1.1, lactic acid 1.4, corrected calcium 14.6, phosphorus 2.7, magnesium 1.5, LFTs normal, alk phos 143, albumin 4, TSH 0.8, urine calcium 8 urine tox screen positive for opiates. Chest x-ray was negative. cc:: cc: Tova Lagunas MD Review of Systems Review of Systems Narrative Review of Systems: Limited as patient seems to be confused. Barely verbal Past Medical History Past Medical History NEUROLOGIC: Positive Neurological Disorders, Cerebrovascular Accident, Meningitis and Paralysis (QUAD) CARDIAC: Positive Cardiac Disorders, Hypercholesterolemia and Hypertension; Negative Congestive Heart Failure RESPIRATORY: Positive Respiratory Disorders (CHRONIC RESP FAILURE); Negative Chronic Obstructive Pulmonary Disease (COPD) GASTROINTESTINAL: Positive Gastrointestinal Disorders and Gastroesophageal Reflux Disease GENITOURINARY: Negative Renal Disease ENDOCRINE: Positive Endocrine Disorders and Diabetes Mellitus Type 2; Negative Diabetes Mellitus Type 1 OTHER HISTORY: Positive Hospitalization; Negative Cancer Surgical History SURGICAL: Positive Gastrostomy and Brain Shunt 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 SURGICAL HX: 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 Social History SMOKING STATUS: Never smoker Meds Home Medications and Allergies Home Medications ?Medication ?Instructions ?Recorded ?Confirmed ?Type bisacodyl 10 mg rectal suppository 10 mg OR Q72H PRN constipation 11/17/24 02/19/25 History bisacodyl 10 mg rectal suppository 10 mg OR QDAY PRN constipation 11/17/24 02/19/25 History (Dulcolax (bisacodyl)) lorazepam 0.5 mg tablet (Ativan) 0.5 mg PO Q6H PRN anxiety 11/17/24 02/19/25 History magnesium hydroxide 400 mg/5 mL 30 ml PO Q72H PRN constipation 11/17/24 02/19/25 History oral suspension (Milk of Magnesia) morphine 20 mg/5 mL (4 mg/mL) oral 2 mg PO Q2H PRN pain (scale score 11/17/24 02/19/25 History solution 4-6) morphine 20 mg/5 mL (4 mg/mL) oral 4 mg PO Q2H PRN pain (scale score 11/17/24 02/19/25 History solution 7-10) sodium phosphates 19 gram-7 118 ml OR Q72H PRN constipation 11/17/24 02/19/25 History gram/118 mL enema (Fleet Enema) artificial tears solution eye drops 2 drp ophthalmic (eye) .Q4 HRS PRN 02/19/25 02/19/25 History dry eyes cranberry fruit 450 mg tablet 450 mg PO QDAY 02/19/25 02/19/25 History (cranberry) fluconazole 200 mg tablet 400 mg PO QDAY disseminated 02/19/25 02/19/25 History coccidioidomycosis hydrocodone 5 mg-acetaminophen 325 1 tab PO Q8H PRN pain, moderate 02/19/25 02/19/25 History mg tablet ibuprofen 400 mg tablet (IBU) 400 mg PO Q8H PRN mild pain (scale 02/19/25 02/19/25 History score 1-4) naloxone 4 mg/actuation nasal 1 spray intranasal Q2M 02/19/25 02/19/25 History spray (Rextovy) sertraline 50 mg tablet (Zoloft) 50 mg PO QDAY 02/19/25 02/19/25 History Allergies Allergy/AdvReac Type Severity Reaction Status Date / Time No Known Allergies Allergy Verified 02/19/25 14:55 Exam Vital Signs Temp Pulse Resp BP Pulse Ox O2 Del Method O2 Flow Rate 36.4 C 81 17 136/93 H 100 Nasal Cannula 3 02/20/25 08:00 02/20/25 08:00 02/20/25 08:00 02/20/25 08:00 02/20/25 08:00 02/20/25 08:00 02/20/25 08:00 Narrative Exam GENERAL APPEARANCE: Patient looks older than his stated age. Contractures noted. In telemetry. NECK: Neck supple, no JVD or bruit CARDIOVASCULAR: Heart regular, no murmurs LUNGS/CHEST: Chest clear to auscultation. No rales, rhonchi, wheezing ABDOMEN: Soft, nontender, nondistended. No masses. Normal bowel sounds. PEG tube was placed and removed. EXTREMITIES: No edema, clubbing or cyanosis. SKIN: Skin exam normal without any rashes MUSCULOSKELETAL: in bed NEUROLOGICAL : Confusion noted. Significant contractures noted. Results Labs 02/20/25 04:55 02/20/25 11:05 Labs: Short CBC 02/19/25 02/20/25 Range/Units 14:50 04:55 WBC 7.4 7.3 (3.8-10.6) Thou/mm3 Hgb 12.3 L 11.9 L (13.5-16.0) g/dL Hct 39.5 L 37.9 L (41.0-53.0) % Plt Count 288 286 (140-440) Thou/mm3 [facility] 02/19/25 02/20/25 14:50 04:55 Sodium 147 H 150 H Potassium 3.1 L 3.8 D Chloride 105 111 H Carbon Dioxide 31.9 H 29.5 BUN 19 16 Creatinine 1.4 H 1.1 Glucose 106 85 Calcium 15.1 H* 14.6 H* Cardiac Enzymes 02/19/25 Range/Units 14:50 Troponin I 0.020 (0.0-0.045) ng/mL Liver Function 02/19/25 02/20/25 Range/Units 14:50 04:55 Total Bilirubin 0.3 0.3 (0.3-1.2) mg/dL AST 10 11 (0-34) U/L ALT 7 L < 7 L (10-49) U/L Alkaline Phosphatase 153 H 143 H (46-116) U/L Albumin 4.2 4.0 (3.5-5.0) gm/dL ABG Interpretation ABG results: 02/19/25 14:50 VBG pH 7.48 VBG pCO2 45 VBG pO2 66 H VBG Base Excess 9 H Assessment & Plan Additional Assessment & Plan Additional Plan: (1)Hypercalcemia: Status: Acute Assessment and plan: Differential diagnosis for hypercalcemia-underlying cocci (granulomatosis vs rule out malignancy especially with a calcium greater than 15 vs immobilization) Spoke to primary team-might benefit from 1 dose of steroid. Patient did receive a pamidronate. Will add 1 dose of denosumab. Continue with IV fluids (2) Hypernatremia: Status: Acute Assessment and plan: During recent admission he was diagnosed with partial central DI and I started him on p.o. im on p.o. desmopressin. Sodium 144. (3) chronic respiratory failure: Status: Acute Assessment and plan: Chronic hypoxic respiratory failure--on oxygen Currently on telemetry. (4) Coccidioidomycosis: Status: Acute Assessment and plan: History of disseminated cocci-on fluconazole Check [place] fever titers Thank you Tova for allowing me to participate in the care of Mr. Bey
--- NOTE | 2025-02-20 11:34 | PC.SS ---
Addendum entered by Belle Mejia, [place] 02/20/25 15:59: Rounding note: pending work up. Addendum entered by Belle Mejia, [place] 02/20/25 13:34: AUTOMOBILE RENTAL CLERK attempted to contact Sanjuanita with [facility], Sanjuanita was unavailable to speak, AUTOMOBILE RENTAL CLERK left voicemail. Addendum entered by Belle Mejia, [place] 02/20/25 11:37: AUTOMOBILE RENTAL CLERK attempted to contact Sanjuanita with [facility], Sanjuanita was unavailable to speak, AUTOMOBILE RENTAL CLERK left voicemail. Original Note: AUTOMOBILE RENTAL CLERK conducted phone contact with the patient?s father, Tommy Bey Sr. to conduct initial assessment and to discuss discharge planning.? Patient is a resident of [facility].? Patient is non-ambulatory.? Patient?s surrogate medical decision maker is father, Tommy Bey Sr.? Patient?s PCP was Dr. Lara but patients fathers stated he is unsure of who is current doctor is as he has been at [facility] for some time.? Patient?s father confirmed that prior to admission patient was aligned with [facility].?Patient?s father stated that once medical clear patient will be d/c to [facility] then he will be d/c to patient?s father.?Patient?s father stated that [facility] was supposed to call hospital to provide information on the d/c plan and address.? technical services manager will need to arrange transportation on behalf of the patient.? Next of Kin: Tommy Bey Sr. D/C Plan: [facility]
[2025-02-20 11:39] LABS: Coccid Serology, CF (UCD)* See Sep Rpt
[2025-02-20 11:57] LABS: Sodium 144 mMol/L (136-145)
--- NOTE | 2025-02-20 12:11 | PD.RESPRO ---
Documentation for date of: 02/20/25 Subjective Subjective Interval history: No acute events overnight. This morning patient was more altered/confused compared to yesterday. However able to answer questions appropriately. Has not had any urine output. Will start IV normal saline 80 mL/h and lieu of concurrent hypernatremia. Will continue desmopressin as he was diagnosed with central DI (may be cause for persistent hypernatremia). Consulted [employer] miner Dr. Richardson, recommended steroids and starting denosumab for hypercalcemia. Still pending PTH, unclear etiology. Consulted dietitian due to patient's failure to thrive, recommended starting Ensure and continuing thiamine and multivitamins daily. Pending cocci titer. Attempted to reach out to facilities (SNF and hospice center) today to obtain more history. Was unsuccessful in regards to when patient was diagnosed with cocci and how long he was on treatment for. Apparently originated from correctional facility, is currently on parole. Will consider reaching out to family to discuss CODE STATUS as patient is on hospice but full code. Will continue all other medications as per yesterday. Electrolytes repleted accordingly. Exam Vital Signs Temp Pulse Resp BP Pulse Ox O2 Del Method O2 Flow Rate 97.6 F 81 17 136/93 H 100 Nasal Cannula 3 02/20/25 08:00 02/20/25 08:00 02/20/25 08:00 02/20/25 08:00 02/20/25 08:00 02/20/25 08:00 02/20/25 08:00 Narrative Exam Physical Exam General: Lethargic. Able to answer questions appropriately but slow. Cachetic and disheveled. Bedbound. HEENT: Normocephalic, atraumatic, mucous membranes dry. Heart: Regular rate and rhythm, normal S1 and S2, no murmurs. Lungs: Clear to auscultation with no wheezing or crackles. Abdomen: Soft, nondistended, nontender, positive bowel sounds. No guarding or rebound tenderness. Neurologic: Alert and oriented x1 (oriented to self, not place or time). Extremities: No edema. Skin: Few scabs and scratches on legs bilaterally. Objective Labs 02/20/25 04:55 02/20/25 11:05 Labs: Laboratory Results - last 24 hr 02/19/25 02/19/25 02/20/25 14:50 20:30 04:55 WBC 7.4 7.3 RBC 4.64 4.43 L Hgb 12.3 L 11.9 L Hct 39.5 L 37.9 L MCV 85 86 MCH 26.5 26.9 MCHC 31.1 31.4 RDW Std Deviation 50.2 H 49.3 H Plt Count 288 286 Neut % (Auto) 44 45 Lymph % (Auto) 43 40 [place] % (Auto) 9 10 Eos % (Auto) 4 4 Baso % (Auto) 1 1 Neut # (Auto) 3.2 3.3 Lymph # (Auto) 3.2 2.9 [place] # (Auto) 0.7 0.7 Eos # (Auto) 0.3 0.3 Baso # (Auto) 0.0 0.0 Immature Gran # (Auto) 0.01 H 0.01 H Absolute Nucleated RBC 0.00 0.00 Immature Gran % 0 0 Nucleated RBC % 0 0 PT 11.4 INR 1.0 VBG pH 7.48 VBG pCO2 45 VBG pO2 66 H VBG O2 Sat ([place]) 96 VBG Base Excess 9 H Sodium 147 H 150 H Potassium 3.1 L 3.8 D Chloride 105 111 H Carbon Dioxide 31.9 H 29.5 Anion Gap 10 10 BUN 19 16 Creatinine 1.4 H 1.1 Estim Creat Clear Calc Not Performed. Not Performed. eGFR 59 L > 60 BUN/Creatinine Ratio 14 15 Glucose 106 85 Calculated Osmolality 294 298 H Lactic Acid 1.4 Calcium 15.1 H* 14.6 H* Corrected Calcium 15.1 H* 14.6 H* Phosphorus 2.7 Magnesium 1.8 1.5 L Total Bilirubin 0.3 0.3 AST 10 11 ALT 7 L < 7 L Alkaline Phosphatase 153 H 143 H Troponin I 0.020 Total Protein 7.7 7.2 Albumin 4.2 4.0 Globulin 3.5 3.2 Albumin/Globulin Ratio 1.2 1.3 Procalcitonin 1.38 H TSH 0.81 Salicylates < 3.0 Urine Opiates Screen Positive A Urine Fentanyl Screen Negative Acetaminophen < 2.0 L Ur Barbiturates Screen Negative U Amphetamin/Meth Scrn Negative U Benzodiazepines Scrn Negative U Cocaine Metab Screen Negative U Marijuana (THC) Screen Negative Ethyl Alcohol < 3.0 02/20/25 11:05 WBC RBC Hgb Hct MCV MCH MCHC RDW Std Deviation Plt Count Neut % (Auto) Lymph % (Auto) [place] % (Auto) Eos % (Auto) Baso % (Auto) Neut # (Auto) Lymph # (Auto) [place] # (Auto) Eos # (Auto) Baso # (Auto) Immature Gran # (Auto) Absolute Nucleated RBC Immature Gran % Nucleated RBC % PT INR VBG pH VBG pCO2 VBG pO2 VBG O2 Sat ([place]) VBG Base Excess Sodium 144 Potassium Chloride Carbon Dioxide Anion Gap BUN Creatinine Estim Creat Clear Calc eGFR BUN/Creatinine Ratio Glucose Calculated Osmolality Lactic Acid Calcium Corrected Calcium Phosphorus Magnesium Total Bilirubin AST ALT Alkaline Phosphatase Troponin I Total Protein Albumin Globulin Albumin/Globulin Ratio Procalcitonin TSH Salicylates Urine Opiates Screen Urine Fentanyl Screen Acetaminophen Ur Barbiturates Screen U Amphetamin/Meth Scrn U Benzodiazepines Scrn U Cocaine Metab Screen U Marijuana (THC) Screen Ethyl Alcohol ABG Interpretation ABG results: 02/19/25 14:50 VBG pH 7.48 VBG pCO2 45 VBG pO2 66 H VBG Base Excess 9 H Quality Measures Quality Measures VTE prophylaxis Assessment & Plan Assessment Current Active Medications: Generic Name Dose Route Start Last Admin Trade Name Freq PRN Reason Stop Dose Admin Acetaminophen 650 mg 02/19/25 17:43 02/20/25 04:38 Acetaminophen 325 Mg Tablet PO 03/21/25 17:42 650 mg Q6H PRN Administration Fever >101.5 or pain 1-3 Desmopressin Acetate 1 mcg 02/20/25 08:00 02/20/25 09:30 Desmopressin Acetate 4 Mcg/Ml Vial IV 03/22/25 07:59 1 mcg QDAY CRISTINA Administration Fluconazole 400 mg 02/20/25 09:00 02/20/25 08:57 Fluconazole 100 Mg Tablet PO 02/27/25 08:59 400 mg QDAY CRISTINA Administration Heparin Sodium (Porcine) 5,000 unit 02/19/25 22:00 02/20/25 05:13 Heparin Sod Inj 5000 Unit/Ml Vial SC 03/05/25 21:59 5,000 unit Q8HR CRISTINA Administration Sodium Chloride 1,000 mls @ 80 mls/hr 02/20/25 12:05 Ns IV 02/21/25 00:34 .[id number] ONE Lorazepam 0.5 mg 02/19/25 19:07 02/20/25 04:38 Lorazepam 0.5 Mg Tablet PO 02/24/25 19:06 0.5 mg Q8HR PRN Administration ANXIETY Pantoprazole Sodium 40 mg 02/19/25 21:00 02/20/25 08:57 Pantoprazole Inj 40 Mg Vial IVP 03/21/25 20:59 40 mg Q12HR CRISTINA Administration Sennosides 1 tab 02/20/25 09:00 02/20/25 08:57 Senna Tablet PO 03/22/25 08:59 1 tab QDAY CRISTINA Administration Protocol Sertraline HCl 50 mg 02/20/25 21:00 Sertraline Hcl 25 Mg Tablet PO 03/22/25 20:59 HS CRISTINA Thiamine HCl 100 mg 02/20/25 09:00 02/20/25 09:31 Thiamine 100 Mg Tablet PO 03/22/25 08:59 100 mg QDAY CRISTINA Administration Plan Patient is a 54 year old male with a past medical history significant for chronic respiratory failure on 3L O2 at baseline, quadriplegia, history of disseminated coccidiomycosis, primary hypertension, [id number] diabetes mellitus type 2, hyperlipidemia, hydrocephalus s/p [employer]SE[employer] shunt presenting on 02/19 for altered mental status, admitted for AMS likely secondary to hypercalcemia. #Altered mental status #Hypercalcemia, improving #Quadriplegic Presented with altered mental status and calcium of 15.1 (previous calcium November 2024 was 8.4). Facility reports that he has not been eating for a few days. Patient was previously a PEG tube but was removed, usually able to tolerate oral feeding. Reports this is due to decreased appetite and difficulty swallowing (will not specify beyond this), denies nausea or vomiting. Also endorses fatigue, denies any seizure-like activity. Patient is bed bound due to quadriplegia. Baseline mentation GCS 14, alert but intermittently confused per facility. Able to respond appropriately to questions on exam however appears very fatigued and lethargic. Oriented to self and place but not time. S/p 1 L NS in ED. S/p 1L LR 200 mls/hr. Plan: - IV NS 80 mls/hr (lower rate in lieu with hypernatremia) - Pamidronate injection 60 mg x1 - Consulted [employer] miner Dr. Richardson, appreciate recommendations: give methylprednisolone 40 mg x1, start denosumab - Strict ins and outs - F/u PTH - CTM calcium #Central DI #Hypernatremia Consulted [employer] miner Dr. Richardson on last admission 11/16-11/22 for persistent hypernatremia, suspected central DI and started on Desmopressin. - CTM CMP daily - Desmopressin 1 mcg daily #Failure to thrive Previously required PEG tube feedings, tube was removed due to patient tolerating oral feeds. Per facility, has been refusing to eat/drink fluids for the past few days. Patient is a hospice patient at [facility], admitted 11/2024. - Thiamine daily - MV daily - Ensure - Dysphagia diet - Consulted county agent - May reconsider PEG tube if continues to decline #Hypophosphatemia #Hypomagnesemia #Hypokalemia On admission, potassium 3.1, phosphorus 1.7. Likely secondary to inadequate nutrition and failure to thrive as above. -Replete accordingly -CTM electrolyte panel #History of disseminated cocci #Cocci meningitis #Hydrocephalus s/p HOUSE[employer] shunt (04/2024) Previously at correctional facility, currently on parole. Unknown reason why. Unclear how long patient has had cocci, unknown duration of treatment. - Continue fluconazole - F/u cocci titer #History anxiety #History of depression - Zoloft 50 mg nightly starting tomorrow - Ativan 0.5mg q8hr as needed Health Maintenance Disposition: Telemetry DVT prophylaxis: Heparin GI prophylaxis: Protonix Diet: N.p.o., pending swallow screen CODE STATUS: Full Patient plan of care was discussed with the attending physician, Dr. Lagunas. Massiel Pringle, PGY-1 Attending Provider Attestation/Addendum I attest that I was physically present for the evaluation, physical examination, lab and imaging review of the patient with the residents. I discussed the case with the residents and agree with the findings and plans of care as documented above. Patient continues to be sleepy at bedside. Was able to answer some questions and follow some commands. Noted to have worsening sodium of 150 this morning, started on D5W briefly, sodium level improved to 144, we will switch to IV normal saline. Calcium level has also improved from 15.1-14.6. Discussed with nephrology, we will add one-time dose of steroid and can also, continue with IV hydration, strict ins and out and monitor his mentation closely, appreciate recommendations. We will continue with desmopressin and obtain follow-up sodium level later in the evening. Vitamin D panel has been ordered, awaiting PTH levels. Tova Lagunas MD
[2025-02-20 12:22] LABS: Calcium, Random Urine 8 mg/dL (2-18); Creatinine,Random Urine < 13 mg/dL (30-125)
[2025-02-20] MEDS: SODIUM CHLORIDE 0.9% 1000 ML 1,000 ML 80 ML IV (12:46)
[2025-02-20] MEDS: MULTIVITAMINS TABLET 1 TAB PO (12:48)
[2025-02-20] MEDS: DENOSUMAB INJ 60 MG/ML SYRINGE SC (14:40)
[2025-02-20 19:23] LABS: Sodium 148 mMol/L (136-145)
[2025-02-20] MEDS: SERTRALINE HCL 25 MG TABLET 50 MG PO (20:26)
--- NOTE | 2025-02-20 22:02 | PC.NURSE ---
notified Dr Montemayor pts sodium lab increased from [address], continue running NS fluid.
[2025-02-21] VITALS (7 sets, daily range): BP systolic 137–159; BP diastolic 93–109; PULSE 90–118; RESP 13–29; TEMP 36.2–37.1; O2SAT 96–100
[2025-02-21 05:42] LABS: Basophils # (Auto) 0.0 Thou/mm3 (0.0-0.2); Basophils % (Auto) 0 % (0-2.5); Eosinophils # (Auto) 0.0 Thou/mm3 (0.0-0.5); Eosinophils % (Auto) 0 % (0-10); Hematocrit 37.0 % (41.0-53.0); Hemoglobin 12.0 g/dL (13.5-16.0); Immature Granulocytes Auto 0.02 Thou/mm3 (0.00-0.00); Lymphocytes # (Auto) 2.1 Thou/mm3 (1.0-4.8); Lymphocytes % (Auto) 35 % (10-50); Mean Corpuscular HGB Conc 32.4 g/dl (31.0-37.0); Mean Corpuscular Hemoglobin 26.8 pg (25.0-35.0); Mean Corpuscular Volume 83 fL (80-100); Monocytes # (Auto) 0.4 Thou/mm3 (0.0-0.8); Monocytes % (Auto) 7 % (0-12); Neutrophils # (Auto) 3.6 Thou/mm3 (1.8-7.7); Neutrophils % (Auto) 58 % (37-80); Nucleated Red Blood Cell # 0.00 Thou/mm3 (0.00-0.00); Nucleated Red Blood Cell % 0 /100 WBC (0); Platelet Count 323 Thou/mm3 (140-440); RDW Standard Deviation 45.6 fL (35.1-43.9); Red Blood Count 4.48 Miln/mm3 (4.50-5.90); White Blood Count 6.2 Thou/mm3 (3.8-10.6)
[2025-02-21] MEDS: HEPARIN SOD INJ 5000 UNIT/ML VIAL SC ×3 (05:47→21:04)
[2025-02-21 06:40] LABS: Anion Gap 16 (7-16); Carbon Dioxide 24.2 mMol/L (20.0-31.0); Chloride 109 mMol/L (98-107); Creatinine (Component) 1.1 mg/dL (0.6-1.3); Estimated Creatinine Clearance 56.5 mL/min (>60); Glucose 98 mg/dL (74-106); Potassium 3.0 mMol/L (3.4-5.1); Sodium 149 mMol/L (136-145); eGFR > 60 See Note
[2025-02-21 06:45] LABS: Alanine Aminotransferase 7 U/L (10-49); Albumin, Serum 4.3 gm/dL (3.5-5.0); Albumin/Globulin Ratio 1.2 (1.2-2.2); Alkaline Phosphatase 149 U/L (46-116); Aspartate Amino Transferase 11 U/L (0-34); BUN/Creatinine Ratio 16 Ratio (12-20); Bilirubin,Total 0.3 mg/dL (0.3-1.2); Blood Urea Nitrogen 18 mg/dL (9-23); Globulin 3.5 gm/dL (2.3-3.5); Magnesium 1.9 mg/dL (1.6-2.6); Osmolality,Calculated 298 (275-295); Total Protein 7.8 gm/dL (5.7-8.2)
[2025-02-21 06:47] LABS: Calcium 13.8 mg/dL (8.3-10.6)
[2025-02-21 06:48] LABS: Calcium (Corrected) 13.8 mg/dL (8.5-10.1); Phosphorous 0.5 mg/dL (2.4-5.1)
--- NOTE | 2025-02-21 07:48 | ESPR_ITS ---
Documentation for date of: 02/21/25 Subjective Subjective Interval history: History of Present Illness: 54-year-old male with past medical history of quadriplegia, chronic respiratory failure on 3 L O2 at baseline, disseminated coccidioidomycosis on long-term fluconazole, hydrocephalus s/p [employer] SALES [employer] shunt, HTN, HLD, T2DM, and prior PEG tube (removed) who presented on 01/19 for confusion and poor oral intake over the past several days. Per nurse, patient has been increasingly lethargic, refusing food, and minimally interactive compared to his baseline. At baseline, he is bedbound but usually alert and able to answer questions appropriately. On admission he was noted to have severe hypercalcemia. Renal consultation requested for hypercalcemia. ED Course: Vitals: BP 105/81, HR 96, RR 18, afebrile, 95% on room air Labs: Ca 15.1, Na 147, K 3.1, Phos 1.7, Mg 1.8, Cr 1.4; PCT 1.38; trop neg; VBG alkalemic. EKG NSR short NV; CXR no PNA Imaging: CT head negative for acute pathology. Given NS 1 L IV bolus in the ED Admitted for altered mental status secondary to hypercalcemia. ER provider gave 1 dose of pamidronate. Patient was started on IV fluids and was admitted toTelemetry. Past Medical History: As above Surgical History: [employer] SAL[employer] shunt placement Medications: Rehab medications included atorvastatin, desmopressin, iron, fluconazole, [place], ibuprofen, Zoloft Allergies: NKDA Family history: Unable to obtain Social history: SNF resident; bedbound. Unable to obtain due to altered mental status. 02/20/2025: Patient currently seen in telemetry. He seems to be confused and quadriplegic in bed. Looks older than his stated age. Blood pressure 154/87, heart rate 85, afebrile. WBC 7.3, hemoglobin 11.9, platelets 286. Sodium 144, potassium 3.8, creatinine 1.1, lactic acid 1.4, corrected calcium 14.6, phosphorus 2.7, magnesium 1.5, LFTs normal, alk phos 143, albumin 4, TSH 0.8, urine calcium 8 urine tox screen positive for opiates. Chest x-ray was negative. 02/21/2025: Labs reviewed and patient examined at the bedside. BUN:18, Cr: 1.1, eGFR:>60 Ca:13.8 Calcium is downtrending. Continue with IVF and Denosumab if needed. Exam Vital Signs Temp Pulse Resp BP Pulse Ox O2 Del Method O2 Flow Rate 97.1 F 118 H 13 155/96 H 100 Nasal Cannula 1 02/21/25 04:00 02/21/25 04:00 02/21/25 04:00 02/21/25 04:00 02/21/25 04:00 02/21/25 04:00 02/21/25 04:00 Narrative Exam General: Lethargic, AAO x1 Eye: normal conjunctiva, no scleral icterus HENT: Normocephalic, atraumatic, hearing intact to conversation at normal volume, moist oral mucosa Neck: Supple, non-tender, no JVD, no lymphadenopathy Lungs: Non-labored respirations, symmetric chest rise, Clear to auscultate bilaterally, No wheezing, rhonchi, crackles Heart: Peripheral pulses intact bilaterally, Regular Rate and Rhythm. Abdomen: Soft, non-tender, non-distended, no palpable masses Musculoskeletal: Normal range of motion and strength, No cyanosis or edema, No visible joint swelling Skin: Skin is dry and few scratches Neuro: Cranial nerves II-XII grossly intact.Sensations intact to light touch. Objective Labs 02/22/25 05:11 02/22/25 15:50 Labs: Laboratory Results - last 24 hr 02/20/25 02/20/25 02/20/25 11:05 11:35 18:44 WBC RBC Hgb Hct MCV MCH MCHC RDW Std Deviation Plt Count Neut % (Auto) Lymph % (Auto) [place] % (Auto) Eos % (Auto) Baso % (Auto) Neut # (Auto) Lymph # (Auto) [place] # (Auto) Eos # (Auto) Baso # (Auto) Immature Gran # (Auto) Absolute Nucleated RBC Immature Gran % Nucleated RBC % Sodium 144 148 H Potassium Chloride Carbon Dioxide Anion Gap BUN Creatinine Estim Creat Clear Calc eGFR BUN/Creatinine Ratio Glucose Calculated Osmolality Calcium Corrected Calcium Phosphorus Magnesium Total Bilirubin AST ALT Alkaline Phosphatase Total Protein Albumin Globulin Albumin/Globulin Ratio Ur Random Creatinine < 13 L Ur Random Calcium 8 02/21/25 05:29 WBC 6.2 RBC 4.48 L Hgb 12.0 L Hct 37.0 L MCV 83 MCH 26.8 MCHC 32.4 RDW Std Deviation 45.6 H Plt Count 323 D Neut % (Auto) 58 Lymph % (Auto) 35 [place] % (Auto) 7 Eos % (Auto) 0 Baso % (Auto) 0 Neut # (Auto) 3.6 Lymph # (Auto) 2.1 [place] # (Auto) 0.4 Eos # (Auto) 0.0 Baso # (Auto) 0.0 Immature Gran # (Auto) 0.02 H Absolute Nucleated RBC 0.00 Immature Gran % 0 Nucleated RBC % 0 Sodium 149 H Potassium 3.0 L D Chloride 109 H Carbon Dioxide 24.2 Anion Gap 16 BUN 18 Creatinine 1.1 Estim Creat Clear Calc 56.5 L eGFR > 60 BUN/Creatinine Ratio 16 Glucose 98 Calculated Osmolality 298 H Calcium 13.8 H* Corrected Calcium 13.8 H* Phosphorus 0.5 L* Magnesium 1.9 Total Bilirubin 0.3 AST 11 ALT 7 L Alkaline Phosphatase 149 H Total Protein 7.8 Albumin 4.3 Globulin 3.5 Albumin/Globulin Ratio 1.2 Ur Random Creatinine Ur Random Calcium ABG Interpretation ABG results: 02/19/25 14:50 VBG pH 7.48 VBG pCO2 45 VBG pO2 66 H VBG Base Excess 9 H Quality Measures Quality Measures VTE prophylaxis Assessment & Plan Assessment Current Active Medications: Generic Name Dose Route Start Last Admin Trade Name Freq PRN Reason Stop Dose Admin Acetaminophen 650 mg 02/19/25 17:43 02/20/25 04:38 Acetaminophen 325 Mg Tablet PO 03/21/25 17:42 650 mg Q6H PRN Administration Fever >101.5 or pain 1-3 Desmopressin Acetate 1 mcg 02/20/25 08:00 02/20/25 09:30 Desmopressin Acetate 4 Mcg/Ml Vial IV 03/22/25 07:59 1 mcg QDAY CRISTINA Administration Fluconazole 400 mg 02/20/25 09:00 02/20/25 08:57 Fluconazole 100 Mg Tablet PO 02/27/25 08:59 400 mg QDAY CRISTINA Administration Heparin Sodium (Porcine) 5,000 unit 02/19/25 22:00 02/21/25 05:47 Heparin Sod Inj 5000 Unit/Ml Vial SC 03/05/25 21:59 5,000 unit Q8HR CRISTINA Administration Potassium Phosphate 15 mmol in 250 mls @ 62.5 mls/hr 02/21/25 07:45 Pot Phos 15 Mmol In Ns 250 Ml IV 02/21/25 15:44 Q4H CRISTINA Lorazepam 0.5 mg 02/19/25 19:07 02/20/25 04:38 Lorazepam 0.5 Mg Tablet PO 02/24/25 19:06 0.5 mg Q8HR PRN Administration ANXIETY Multivitamins 1 tab 02/20/25 12:45 02/20/25 12:48 Multivitamins Tablet PO 03/22/25 12:44 1 tab QDAY CRISTINA Administration Pantoprazole Sodium 40 mg 02/21/25 09:00 Pantoprazole 40 Mg Tablet PO 03/23/25 08:59 Q12HR CRISTINA Potassium Phos/Sodium Phos 1 packet 02/21/25 07:46 [facility]aph,[facility] 1 Packet (1.5 Gm) PO 02/21/25 07:47 X1 ONE Sennosides 1 tab 02/20/25 09:00 02/20/25 08:57 Senna Tablet PO 03/22/25 08:59 1 tab QDAY CRISTINA Administration Protocol Sertraline HCl 50 mg 02/20/25 21:00 02/20/25 20:26 Sertraline Hcl 25 Mg Tablet PO 03/22/25 20:59 50 mg HS CRISTINA Administration Thiamine HCl 100 mg 02/20/25 09:00 02/20/25 09:31 Thiamine 100 Mg Tablet PO 03/22/25 08:59 100 mg QDAY CRISTINA Administration Plan 54-year-old male with past medical history of quadriplegia, chronic respiratory failure on 3 L O2 at baseline, disseminated coccidioidomycosis on long-term fluconazole, hydrocephalus s/p [employer] SAL[employer] COORDINATOR shunt, HTN, HLD, T2DM, and prior PEG tube (removed) who presented on 01/19 for confusion and poor oral intake over the past several days. Renal consultation requested for hypercalcemia. #Altered mental status #Hypercalcemia, improving #Quadriplegic -On admission, Altered mental status and calcium of 15.1 (previous calcium November 2024 was 8.4). -Facility reports that he has not been eating for a few days. Patient was previously a PEG tube but was removed, usually able to tolerate oral feeding. -Also endorses fatigue, denies any seizure-like activity. Patient is bed bound due to quadriplegia. -Baseline mentation GCS 14, alert but intermittently confused per facility. Able to respond appropriately to questions on exam however appears very fatigued and lethargic. Plan: - Continue IV NS 80 mls/hr (lower rate in lieu with hypernatremia) - Denosumab if needed. - Strict ins and outs - F/u PTH - CTM calcium #Central DI #Hypernatremia -Recent Dx of partial central DI. Sodium 144 -Currently, Sodium: 149 Plan: - CTM CMP daily - Continue Desmopressin 1 mcg daily #Hypophosphatemia #Hypomagnesemia #Hypokalemia On admission, potassium 3.1, phosphorus 1.7. Likely secondary to inadequate nutrition and failure to thrive as above. -Replete accordingly -CTM electrolyte panel #History of disseminated cocci #Cocci meningitis #Hydrocephalus s/p REG[employer] SALES COORDINATOR shunt (04/2024) #History anxiety #History of depression -Management per Primary Hospitalist team Thank you for allowing us to participate in the care of your patient. Assessment and plan discussed with my attending physician Dr. Dylan Nelson (PGY-1)- Internal medicine resident Attending Provider Attestation/Addendum Patient seen and examined with resident physician Dr. Nelson. Note reviewed, agree with findings and recommendations. Calcium and creatinine seems to be improving. Continue with IV fluids.
[2025-02-21] MEDS: POT PHOS 15 mMol in NS 250 ML 15 MMOL/250 ML BAG 62.5 MMOL IV ×2 (09:10→13:42)
[2025-02-21] MEDS: THIAMINE 100 MG TABLET PO (09:11)
[2025-02-21] MEDS: MULTIVITAMINS TABLET 1 TAB PO (09:11)
[2025-02-21] MEDS: PANTOPRAZOLE 40 MG TABLET PO ×2 (09:11→20:59)
[2025-02-21] MEDS: FLUCONAZOLE 100 MG TABLET 400 MG PO (09:12)
[2025-02-21] MEDS: DESMOPRESSIN ACETATE 4 MCG/ML VIAL 1 MCG IV (09:12)
[2025-02-21] MEDS: NAPH,KPH MBDB 1 PACKET (1.5 GM) PO ×2 (09:19→20:59)
[2025-02-21] MEDS: SODIUM CHLORIDE 0.45 % 1,000 ML 75 ML IV (10:16)
[2025-02-21] MEDS: VANCOMYCIN/NS 1 GM IVPB 200 ML IV (10:16)
--- NOTE | 2025-02-21 11:04 | PC.SS ---
Addendum entered by Taylor Amin 02/21/25 11:14: SS spoke to BERE with [facility] who confirmed father wanted patient to d/c to patient's sister's home in [place]. SS did not see a contact number for sister. SS attempted to contact patient's father but voice mail was full and would not allow to leave a message. Original Note: SS reviewed notes that patient is from [facility]. No d/c orders. SS spoke to JFK at [facility] and they are ready for patient. Patient's father wants patient to d/c to [place] with [facility]. SS will follow up with physician team to clarify.
[2025-02-21 13:25] LABS: Sodium 151 mMol/L (136-145)
[2025-02-21] MEDS: DEXTROSE 5%-WATER 1,000 ML 75 ML IV (14:43)
--- NOTE | 2025-02-21 17:27 | PD.RESPRO ---
Documentation for date of: 02/21/25 Subjective Subjective Interval history: no acute overnight events. Patient appears more awake alert and is complaining of mild abdominal pain. Vitals are stable and noted to have mild tachycardia with heart rate in low 100s this morning. Labs done this morning is significant for hyponatremia, sodium 149 for which patient was started on half NS despite which the sodium levels up trended so half NS is discontinued and started on D5W. Patient reported that he is eating well but as the patient is quadriplegic could not able to reach the water, so requested nurse at the bedside to give him water every second hourly. Otherwise, calcium is downtrending and noted to have hypophosphatemia and hypokalemia for which both of them are repleted. Will continue to follow-up with the calcium and sodium levels. Exam Vital Signs Temp Pulse Resp BP Pulse Ox O2 Del Method O2 Flow Rate 98.8 F 102 H 19 145/95 H 98 Nasal Cannula 1 02/21/25 16:00 02/21/25 16:02/21/25 16:02/21/25 16:02/21/25 16:02/21/25 16:02/21/25 16:00 Narrative Exam Physical Exam General: Lethargic. Able to answer questions appropriately but slow. Cachetic and disheveled. Bedbound. HEENT: Normocephalic, atraumatic, mucous membranes dry. Heart: Regular rate and rhythm, normal S1 and S2, no murmurs. Lungs: Clear to auscultation with no wheezing or crackles. Abdomen: Soft, nondistended, nontender, positive bowel sounds. No guarding or rebound tenderness. Neurologic: Alert and oriented x2 (oriented to self, place or not time). Extremities: No edema. Skin: Few scabs and scratches on legs bilaterally. Objective Labs 02/22/25 05:11 02/22/25 05:11 Labs: Laboratory Results - last 24 hr 02/20/25 02/21/25 02/21/25 18:44 05:29 11:00 WBC 6.2 RBC 4.48 L Hgb 12.0 L Hct 37.0 L MCV 83 MCH 26.8 MCHC 32.4 RDW Std Deviation 45.6 H Plt Count 323 D Neut % (Auto) 58 Lymph % (Auto) 35 [place] % (Auto) 7 Eos % (Auto) 0 Baso % (Auto) 0 Neut # (Auto) 3.6 Lymph # (Auto) 2.1 [place] # (Auto) 0.4 Eos # (Auto) 0.0 Baso # (Auto) 0.0 Immature Gran # (Auto) 0.02 H Absolute Nucleated RBC 0.00 Immature Gran % 0 Nucleated RBC % 0 Sodium 148 H 149 H 151 H Potassium 3.0 L D Chloride 109 H Carbon Dioxide 24.2 Anion Gap 16 BUN 18 Creatinine 1.1 Estim Creat Clear Calc 56.5 L eGFR > 60 BUN/Creatinine Ratio 16 Glucose 98 Calculated Osmolality 298 H Calcium 13.8 H* Corrected Calcium 13.8 H* Phosphorus 0.5 L* Magnesium 1.9 Total Bilirubin 0.3 AST 11 ALT 7 L Alkaline Phosphatase 149 H Total Protein 7.8 Albumin 4.3 Globulin 3.5 Albumin/Globulin Ratio 1.2 ABG Interpretation ABG results: 02/19/25 14:50 VBG pH 7.48 VBG pCO2 45 VBG pO2 66 H VBG Base Excess 9 H Quality Measures Quality Measures VTE prophylaxis Assessment & Plan Assessment Current Active Medications: Generic Name Dose Route Start Last Admin Trade Name Freq PRN Reason Stop Dose Admin Acetaminophen 650 mg 02/19/25 17:43 02/20/25 04:38 Acetaminophen 325 Mg Tablet PO 03/21/25 17:42 650 mg Q6H PRN Administration Fever >101.5 or pain 1-3 Desmopressin Acetate 1 mcg 02/20/25 08:00 02/21/25 09:12 Desmopressin Acetate 4 Mcg/Ml Vial IV 03/22/25 07:59 1 mcg QDAY CRISTINA Administration Fluconazole 400 mg 02/20/25 09:00 02/21/25 09:12 Fluconazole 100 Mg Tablet PO 02/27/25 08:59 400 mg QDAY CRISTINA Administration Heparin Sodium (Porcine) 5,000 unit 02/19/25 22:00 02/21/25 13:59 Heparin Sod Inj 5000 Unit/Ml Vial SC 03/05/25 21:59 5,000 unit Q8HR CRISTINA Administration Dextrose 1,000 mls @ 75 mls/hr 02/21/25 14:15 02/21/25 14:43 D5w IV 03/23/25 14:14 75 mls/hr .[id number] CRISTINA Administration Lorazepam 0.5 mg 02/19/25 19:07 02/20/25 04:38 Lorazepam 0.5 Mg Tablet PO 02/24/25 19:06 0.5 mg Q8HR PRN Administration ANXIETY Multivitamins 1 tab 02/20/25 12:45 02/21/25 09:11 Multivitamins Tablet PO 03/22/25 12:44 1 tab QDAY CRISTINA Administration Pantoprazole Sodium 40 mg 02/21/25 09:00 02/21/25 09:11 Pantoprazole 40 Mg Tablet PO 03/23/25 08:59 40 mg Q12HR CRISTINA Administration Pharmacy Consult 1 each 02/22/25 09:00 Vancomycin Pharmacy To Dose 1 Each Each IV 03/24/25 08:59 QDAY PRN PROTOCOL Potassium Phos/Sodium Phos 1 packet 02/21/25 21:00 Naph,[facility] Mbdb 1 Packet (1.5 Gm) PO 03/23/25 20:59 BID CRISTINA Sennosides 1 tab 02/20/25 09:00 02/21/25 09:11 Senna Tablet PO 03/22/25 08:59 1 tab QDAY CRISTINA Administration Protocol Sertraline HCl 50 mg 02/20/25 21:00 02/20/25 20:26 Sertraline Hcl 25 Mg Tablet PO 03/22/25 20:59 50 mg HS CRISTINA Administration Thiamine HCl 100 mg 02/20/25 09:00 02/21/25 09:11 Thiamine 100 Mg Tablet PO 03/22/25 08:59 100 mg QDAY CRISTINA Administration Plan Patient is a 54 year old male with a past medical history significant for chronic respiratory failure on 3L O2 at baseline, quadriplegia, history of disseminated coccidiomycosis, primary hypertension, [id number] diabetes mellitus type 2, hyperlipidemia, hydrocephalus s/p VISUAL COMMUNICATIONS INSTRUCTOR shunt presenting on 02/19 for altered mental status, admitted for AMS likely secondary to hypercalcemia. #Acute encephalopathy, resolving #Hypercalcemia, improving #Quadriplegic Presented with altered mental status and calcium of 15.1 (previous calcium November 2024 was 8.4). Facility reports that he has not been eating for a few days. Patient was previously a PEG tube but was removed, usually able to tolerate oral feeding. Reports this is due to decreased appetite and difficulty swallowing (will not specify beyond this), denies nausea or vomiting. Also endorses fatigue, denies any seizure-like activity. Patient is bed bound due to quadriplegia. Baseline mentation GCS 14, alert but intermittently confused per facility. Able to respond appropriately to questions on exam however appears very fatigued and lethargic. Oriented to self and place but not time. S/p 1 L NS in ED. S/p 1L LR 200 mls/hr. Plan: - IV D5W 50 mls/hr - Pamidronate injection 60 mg x1 - Consulted order processing clerk Dr. Richardson, appreciate recommendations: give methylprednisolone 40 mg x1, 1 dose of denosumab given - Strict ins and outs - F/u PTH - CTM calcium #Central DI #Hypernatremia Consulted order processing clerk Dr. Richardson on last admission 11/16-11/22 for persistent hypernatremia, suspected central DI and started on Desmopressin. - IV D5W 50 mls/hr , sodium checks every 4th hrly and recommended free water intake - CTM CMP daily - Desmopressin 1 mcg daily #Failure to thrive Previously required PEG tube feedings, tube was removed due to patient tolerating oral feeds. Per facility, has been refusing to eat/drink fluids for the past few days. Patient is a hosp[facility] at [facility], admitted 11/2024. - Thiamine daily - MV daily - Ensure - Dysphagia diet - Consulted game producer - May reconsider PEG tube if continues to decline #Hypophosphatemia #Hypomagnesemia #Hypokalemia On admission, potassium 3.1, phosphorus 1.7. Likely secondary to inadequate nutrition and failure to thrive as above. -Replete accordingly -CTM electrolyte panel #History of disseminated cocci #Cocci meningitis #Hydrocephalus s/p VISUAL COMMUNICATIONS INSTRUCTOR shunt (04/2024) Previously at correctional facility, currently on parole. Unknown reason why. Unclear how long patient has had cocci, unknown duration of treatment. - Continue fluconazole - F/u cocci titer #History anxiety #History of depression - Zoloft 50 mg nightly starting tomorrow - Ativan 0.5mg q8hr as needed Health Maintenance Disposition: Telemetry DVT prophylaxis: Heparin GI prophylaxis: Protonix Diet: Dysphagia CODE STATUS: Full Patient plan of care was discussed with the attending physician, Dr. Bebo Fontenot, PGY2 Attending Provider Attestation/Addendum I attest that I was physically present for the evaluation, physical examination, lab and imaging review of the patient with the residents. I discussed the case with the residents and agree with the findings and plans of care as documented above. Patient seen at bedside this morning, appears more awake and alert compared to yesterday, complains of mild abdominal pain. Vital signs are stable except for mild hypertension and mild tachycardia. Lab results show elevated sodium at 149 this morning, we will start him on D5W. Noted to have potassium of 3.0, phosphorus 0.5, repleted accordingly. Calcium level is slowly coming down, 13.8 today. We will also encourage patient to have increased oral intake. Discussed with patient's nurse regarding help with feeding. Nephrology following closely, appreciate recommendations. Tova Lagunas MD
[2025-02-21 19:44] LABS: Sodium 146 mMol/L (136-145)
[2025-02-21 19:59] LABS: Vitamin D 25 Hydroxy Total 53.6 ng/mL (7.3-40.2)
[2025-02-21 19:59] LABS: Parathyroid Hormone Intact 3.6 pg/ml (18.5-88.0)
[2025-02-21] MEDS: SERTRALINE HCL 25 MG TABLET 50 MG PO (20:59)
[2025-02-22] VITALS (9 sets, daily range): BP systolic 113–157; BP diastolic 63–102; PULSE 90–120; RESP 12–27; TEMP 35.9–36.5; O2SAT 95–99
[2025-02-22] MEDS: ACETAMINOPHEN 325 MG TABLET 650 MG PO (03:00)
[2025-02-22] MEDS: HEPARIN SOD INJ 5000 UNIT/ML VIAL SC ×3 (05:10→22:01)
[2025-02-22 05:31] LABS: Basophils # (Auto) 0.0 Thou/mm3 (0.0-0.2); Basophils % (Auto) 0 % (0-2.5); Eosinophils # (Auto) 0.2 Thou/mm3 (0.0-0.5); Eosinophils % (Auto) 3 % (0-10); Hematocrit 37.7 % (41.0-53.0); Hemoglobin 12.3 g/dL (13.5-16.0); Immature Granulocytes Auto 0.03 Thou/mm3 (0.00-0.00); Lymphocytes # (Auto) 3.0 Thou/mm3 (1.0-4.8); Lymphocytes % (Auto) 39 % (10-50); Mean Corpuscular HGB Conc 32.6 g/dl (31.0-37.0); Mean Corpuscular Hemoglobin 26.9 pg (25.0-35.0); Mean Corpuscular Volume 82 fL (80-100); Monocytes # (Auto) 0.6 Thou/mm3 (0.0-0.8); Monocytes % (Auto) 7 % (0-12); Neutrophils # (Auto) 3.9 Thou/mm3 (1.8-7.7); Neutrophils % (Auto) 50 % (37-80); Nucleated Red Blood Cell # 0.00 Thou/mm3 (0.00-0.00); Nucleated Red Blood Cell % 0 /100 WBC (0); Platelet Count 323 Thou/mm3 (140-440); RDW Standard Deviation 47.9 fL (35.1-43.9); Red Blood Count 4.58 Miln/mm3 (4.50-5.90); White Blood Count 7.8 Thou/mm3 (3.8-10.6)
[2025-02-22 06:29] LABS: Alanine Aminotransferase < 7 U/L (10-49); Albumin, Serum 4.2 gm/dL (3.5-5.0); Albumin/Globulin Ratio 1.3 (1.2-2.2); Alkaline Phosphatase 141 U/L (46-116); Anion Gap 12 (7-16); Aspartate Amino Transferase < 10 U/L (0-34); BUN/Creatinine Ratio 18 Ratio (12-20); Bilirubin,Total 0.3 mg/dL (0.3-1.2); Blood Urea Nitrogen 18 mg/dL (9-23); Calcium 11.5 mg/dL (8.3-10.6); Calcium (Corrected) 11.5 mg/dL (8.5-10.1); Carbon Dioxide 27.0 mMol/L (20.0-31.0); Chloride 106 mMol/L (98-107); Creatinine (Component) 1.0 mg/dL (0.6-1.3); Estimated Creatinine Clearance 63.7 mL/min (>60); Globulin 3.2 gm/dL (2.3-3.5); Glucose 100 mg/dL (74-106); Magnesium 1.3 mg/dL (1.6-2.6); Osmolality,Calculated 290 (275-295); Phosphorous 2.3 mg/dL (2.4-5.1); Potassium 3.1 mMol/L (3.4-5.1); Sodium 145 mMol/L (136-145); Total Protein 7.4 gm/dL (5.7-8.2); Vancomycin,Random 9.8 mcg/mL; eGFR > 60 See Note
--- NOTE | 2025-02-22 08:58 | PD.RESPRO ---
Documentation for date of: 02/22/25 Subjective Subjective Interval history: 54-year-old male with past medical history of quadriplegia, chronic respiratory failure on 3 L O2 at baseline, disseminated coccidioidomycosis on long-term fluconazole, hydrocephalus s/p ANIMAL CARE ASSISTANT shunt, HTN, HLD, T2DM, and prior PEG tube (removed) who presented on 01/19 for confusion and poor oral intake over the past several days. Per nurse, patient has been increasingly lethargic, refusing food, and minimally interactive compared to his baseline. At baseline, he is bedbound but usually alert and able to answer questions appropriately. On admission he was noted to have severe hypercalcemia. Renal consultation requested for hypercalcemia. ED Course: Vitals: BP 105/81, HR 96, RR 18, afebrile, 95% on room air Labs: Ca 15.1, Na 147, K 3.1, Phos 1.7, Mg 1.8, Cr 1.4; PCT 1.38; trop neg; VBG alkalemic. EKG NSR short ND; CXR no PNA Imaging: CT head negative for acute pathology. Given NS 1 L IV bolus in the ED Admitted for altered mental status secondary to hypercalcemia. ER provider gave 1 dose of pamidronate. Patient was started on IV fluids and was admitted toTelemetry. Past Medical History: As above Surgical History: ANIMAL CARE ASSISTANT shunt placement Medications: Rehab medications included atorvastatin, desmopressin, iron, fluconazole, [place], ibuprofen, Zoloft Allergies: NKDA Family history: Unable to obtain Social history: SNF resident; bedbound. Unable to obtain due to altered mental status. 02/20/2025: Patient currently seen in telemetry. He seems to be confused and quadriplegic in bed. Looks older than his stated age. Blood pressure 154/87, heart rate 85, afebrile. WBC 7.3, hemoglobin 11.9, platelets 286. Sodium 144, potassium 3.8, creatinine 1.1, lactic acid 1.4, corrected calcium 14.6, phosphorus 2.7, magnesium 1.5, LFTs normal, alk phos 143, albumin 4, TSH 0.8, urine calcium 8 urine tox screen positive for opiates. Chest x-ray was negative. 02/21/2025: Labs reviewed and patient examined at the bedside. BUN:18, Cr: 1.1, eGFR:>60 Ca:13.8 Calcium is downtrending. Continue with IVF and Denosumab if needed. 02/21/2025: Labs reviewed and patient examined at the bedside. Patient look sill loke slightly confused. BUN:18, Cr: 1.0, eGFR:>60 Ca:11.5 Calcium is downtrending.Continue with IVF and desmopressin Exam Vital Signs Temp Pulse Resp BP Pulse Ox O2 Del Method O2 Flow Rate 97.3 F 103 H 12 155/86 H 99 Nasal Cannula 1 02/22/25 04:00 02/22/25 04:00 02/22/25 04:00 02/22/25 04:00 02/22/25 04:00 02/21/25 16:00 02/21/25 16:00 Narrative Exam General: Lethargic, AAO x1 Eye: normal conjunctiva, no scleral icterus HENT: Normocephalic, atraumatic, hearing intact to conversation at normal volume, moist oral mucosa Neck: Supple, non-tender, no JVD, no lymphadenopathy Lungs: Non-labored respirations, symmetric chest rise, Clear to auscultate bilaterally, No wheezing, rhonchi, crackles Heart: Peripheral pulses intact bilaterally, Regular Rate and Rhythm. Abdomen: Soft, non-tender, non-distended, no palpable masses Musculoskeletal: Normal range of motion and strength, No cyanosis or edema, No visible joint swelling Skin: Skin is dry and few scratches Neuro: Cranial nerves II-XII grossly intact.Sensations intact to light touch. Objective Labs 02/22/25 05:11 02/22/25 15:50 Labs: Laboratory Results - last 24 hr 02/20/25 02/20/25 02/21/25 04:55 11:05 11:00 WBC RBC Hgb Hct MCV MCH MCHC RDW Std Deviation Plt Count Neut % (Auto) Lymph % (Auto) [place] % (Auto) Eos % (Auto) Baso % (Auto) Neut # (Auto) Lymph # (Auto) [place] # (Auto) Eos # (Auto) Baso # (Auto) Immature Gran # (Auto) Absolute Nucleated RBC Immature Gran % Nucleated RBC % Sodium 151 H Potassium Chloride Carbon Dioxide Anion Gap BUN Creatinine Estim Creat Clear Calc eGFR BUN/Creatinine Ratio Glucose Calculated Osmolality Calcium Corrected Calcium Phosphorus Magnesium Total Bilirubin AST ALT Alkaline Phosphatase Total Protein Albumin Globulin Albumin/Globulin Ratio 25-OH Vitamin D Total 53.6 H PTH Intact 3.6 L Random Vancomycin 02/21/25 02/22/25 18:34 05:11 WBC 7.8 RBC 4.58 Hgb 12.3 L Hct 37.7 L MCV 82 MCH 26.9 MCHC 32.6 RDW Std Deviation 47.9 H Plt Count 323 Neut % (Auto) 50 Lymph % (Auto) 39 [place] % (Auto) 7 Eos % (Auto) 3 Baso % (Auto) 0 Neut # (Auto) 3.9 Lymph # (Auto) 3.0 [place] # (Auto) 0.6 Eos # (Auto) 0.2 Baso # (Auto) 0.0 Immature Gran # (Auto) 0.03 H Absolute Nucleated RBC 0.00 Immature Gran % 0 Nucleated RBC % 0 Sodium 146 H 145 Potassium 3.1 L Chloride 106 Carbon Dioxide 27.0 Anion Gap 12 BUN 18 Creatinine 1.0 Estim Creat Clear Calc 63.7 eGFR > 60 BUN/Creatinine Ratio 18 Glucose 100 Calculated Osmolality 290 Calcium 11.5 H D Corrected Calcium 11.5 H D Phosphorus 2.3 L Magnesium 1.3 L Total Bilirubin 0.3 AST < 10 ALT < 7 L Alkaline Phosphatase 141 H Total Protein 7.4 Albumin 4.2 Globulin 3.2 Albumin/Globulin Ratio 1.3 25-OH Vitamin D Total PTH Intact Random Vancomycin 9.8 ABG Interpretation ABG results: 02/19/25 14:50 VBG pH 7.48 VBG pCO2 45 VBG pO2 66 H VBG Base Excess 9 H Quality Measures Quality Measures VTE prophylaxis Assessment & Plan Assessment Current Active Medications: Generic Name Dose Route Start Last Admin Trade Name Barry PRN Reason Stop Dose Admin Acetaminophen 650 mg 02/19/25 17:43 02/22/25 03:00 Acetaminophen 325 Mg Tablet PO 03/21/25 17:42 650 mg Q6H PRN Administration Fever >101.5 or pain 1-3 Desmopressin Acetate 1 mcg 02/20/25 08:00 02/21/25 09:12 Desmopressin Acetate 4 Mcg/Ml Vial IV 03/22/25 07:59 1 mcg QDAY CRISTINA Administration Fluconazole 400 mg 02/20/25 09:00 02/21/25 09:12 Fluconazole 100 Mg Tablet PO 02/27/25 08:59 400 mg QDAY CRISTINA Administration Heparin Sodium (Porcine) 5,000 unit 02/19/25 22:00 02/22/25 05:10 Heparin Sod Inj 5000 Unit/Ml Vial SC 03/05/25 21:59 5,000 unit Q8HR CRISTINA Administration Magnesium Sulfate 4 gm in 50 mls @ 12.5 mls/hr 02/22/25 07:41 Magnesium Sulfate Ivpb IV 02/22/25 11:40 X1 ONE Vancomycin/Sodium Chloride 750 mg in 150 mls @ 120 mls/hr 02/22/25 10:00 Vancomycin/Ns 750 Mg Ivpb IV 03/01/25 09:59 QDAY@1000,2200 CRISTINA Lorazepam 0.5 mg 02/19/25 19:07 02/22/25 05:53 Lorazepam 0.5 Mg Tablet PO 02/24/25 19:06 0.5 mg Q8HR PRN Administration ANXIETY Multivitamins 1 tab 02/20/25 12:45 02/21/25 09:11 Multivitamins Tablet PO 03/22/25 12:44 1 tab QDAY CRISTINA Administration Pantoprazole Sodium 40 mg 02/21/25 09:00 02/21/25 20:59 Pantoprazole 40 Mg Tablet PO 03/23/25 08:59 40 mg Q12HR CRISTINA Administration Pharmacy Consult 1 each 02/22/25 09:00 Vancomycin Pharmacy To Dose 1 Each Each IV 03/24/25 08:59 QDAY PRN PROTOCOL Potassium Chloride 40 meq 02/22/25 12:00 Potassium Chloride 20 Meq Tabcr PO 02/22/25 12:01 X1 ONE Potassium Phos/Sodium Phos 1 packet 02/21/25 21:00 02/21/25 20:59 Naph,[facility] Mbdb 1 Packet (1.5 Gm) PO 03/23/25 20:59 1 packet BID CRISTINA Administration Sennosides 1 tab 02/20/25 09:00 02/21/25 09:11 Senna Tablet PO 03/22/25 08:59 1 tab QDAY CRISTINA Administration Protocol Sertraline HCl 50 mg 02/20/25 21:00 02/21/25 20:59 Sertraline Hcl 25 Mg Tablet PO 03/22/25 20:59 50 mg HS CRISTINA Administration Thiamine HCl 100 mg 02/20/25 09:00 02/21/25 09:11 Thiamine 100 Mg Tablet PO 03/22/25 08:59 100 mg QDAY CRISTINA Administration Plan 54-year-old male with past medical history of quadriplegia, chronic respiratory failure on 3 L O2 at baseline, disseminated coccidioidomycosis on long-term fluconazole, hydrocephalus s/p ANIMAL CARE ASSISTANT shunt, HTN, HLD, T2DM, and prior PEG tube (removed) who presented on 01/19 for confusion and poor oral intake over the past several days. Renal consultation requested for hypercalcemia. #Altered mental status #Hypercalcemia, improving #Quadriplegic -On admission, Altered mental status and calcium of 15.1 (previous calcium November 2024 was 8.4). -Facility reports that he has not been eating for a few days. Patient was previously a PEG tube but was removed, usually able to tolerate oral feeding. -Also endorses fatigue, denies any seizure-like activity. Patient is bed bound due to quadriplegia. -Baseline mentation GCS 14, alert but intermittently confused per facility. Able to respond appropriately to questions on exam however appears very fatigued and lethargic. -Currently, BUN:18, Cr: 1.0, eGFR:>60 Ca:11.5 Plan: - Continue IV NS 80 mls/hr (lower rate in lieu with hypernatremia) - Denosumab if needed. - Strict ins and outs - F/u PTH - CTM calcium #Central DI #Hypernatremia -Recent Dx of partial central DI. Sodium 144 -Currently, Sodium: 149 Plan: - CTM CMP daily - Continue Desmopressin 1 mcg daily #Hypophosphatemia #Hypomagnesemia #Hypokalemia On admission, potassium 3.1, phosphorus 1.7. Likely secondary to inadequate nutrition and failure to thrive as above. -Replete accordingly -CTM electrolyte panel #History of disseminated cocci #Cocci meningitis #Hydrocephalus s/p ANIMAL CARE ASSISTANT shunt (04/2024) #History anxiety #History of depression -Management per Primary Hospitalist team Thank you for allowing us to participate in the care of your patient. Assessment and plan discussed with my attending physician Dr. Dylan Nelson (PGY-1)- Internal medicine resident Attending Provider Attestation/Addendum Patient seen and examined with resident physician Dr. Nelson. Note reviewed, agree with findings and recommendations. Calcium and creatinine seems to be improving. Continue with IV fluids.
--- NOTE | 2025-02-22 09:14 | PC.SS ---
Addendum entered by Bree Taylor 02/22/25 09:26: SS has contacted Verenice from patient registration to add patient's dad, Tommy Bey, phone# [phone] on patient's facesheet. SS has left voicemail for dad informing him pt is possible d/c tomorrow and address of where pt will be d/c to is required. SS also left phone number to contact SS. SS called Sanjuanita from [facility] who is requiring Hospice referral be sent. Original Note: Follow up note: Monitor calcium levels. On IV fluids and IV antibiotic. Pending final cultures. Pt will d/c with [facility] to home with dad.
[2025-02-22] MEDS: VANCOMYCIN/NS 750 MG IVPB 750 MG/150 ML BAG 120 MG IV ×2 (09:31→21:48)
[2025-02-22] MEDS: NAPH,KPH MBDB 1 PACKET (1.5 GM) PO ×2 (09:32→21:48)
[2025-02-22] MEDS: MULTIVITAMINS TABLET 1 TAB PO (09:32)
[2025-02-22] MEDS: PANTOPRAZOLE 40 MG TABLET PO ×2 (09:32→21:49)
[2025-02-22] MEDS: THIAMINE 100 MG TABLET PO (09:32)
[2025-02-22] MEDS: DESMOPRESSIN ACETATE 4 MCG/ML VIAL 1 MCG IV (09:32)
[2025-02-22] MEDS: FLUCONAZOLE 100 MG TABLET 400 MG PO (09:32)
[2025-02-22] MEDS: Magnesium Sulfate 4 GM Ivpb 4 GM/50 ML BAG IV (11:04)
--- NOTE | 2025-02-22 11:55 | ESPR_ITS ---
<Statement entered by Nuno Fontenot MD - 02/23/25 14:54> I have personally seen and examined the patient, agree with residents assessment and plan Patient plan of care was discussed with the attending physician, Dr. Bebo Fontenot, PGY2 Documentation for date of: 02/22/25 Subjective Subjective Interval history: Overnight, D5W was discontinued this morning sodium was 145. This morning patient remains confused but more alert and conversational, appears to be back to baseline. Sodium then calcium levels are improving. Tracking good oral intake, will continue to encourage oral rehydration, restart IV fluids if not improving. Appetite improving, continue to encourage oral intake, on Ensure and MV daily. Patient has good urine output per nurse. Strict I's and O's. Repeat blood cultures positive for GPC on preliminary results, continue IV Vanco. WBC remain within normal limits. Will update patient's family on his admission per patient's request. Exam Vital Signs Temp Pulse Resp BP Pulse Ox O2 Del Method O2 Flow Rate 96.9 F 108 H 15 144/102 H 99 Room Air 1 02/22/25 08:00 02/22/25 08:00 02/22/25 08:00 02/22/25 08:00 02/22/25 08:00 02/22/25 08:00 02/21/25 16:00 Narrative Exam Physical Exam General: More alert, answering questions but confused. Cachetic and disheveled. Quadraplegic. HEENT: Normocephalic, atraumatic, mucous membranes dry. Heart: Tachycardic. Regular rate and rhythm, normal S1 and S2, no murmurs. Lungs: Clear to auscultation with no wheezing or crackles. Abdomen: Soft, nondistended, nontender, positive bowel sounds. No guarding or rebound tenderness. Neurologic: Alert and oriented x1 (oriented to self, place or not time). Extremities: No edema. Contracted lower extremities, stiff. Skin: Few scabs and scratches on legs bilaterally. Very dry skin. Multiple pressure ulcers of lower extremities, stage 3 coccyxial wound. Objective Labs 02/23/25 04:25 02/23/25 04:25 Labs: Laboratory Results - last 24 hr 02/20/25 02/20/25 02/21/25 04:55 11:05 11:00 WBC RBC Hgb Hct MCV MCH MCHC RDW Std Deviation Plt Count Neut % (Auto) Lymph % (Auto) [place] % (Auto) Eos % (Auto) Baso % (Auto) Neut # (Auto) Lymph # (Auto) [place] # (Auto) Eos # (Auto) Baso # (Auto) Immature Gran # (Auto) Absolute Nucleated RBC Immature Gran % Nucleated RBC % Sodium 151 H Potassium Chloride Carbon Dioxide Anion Gap BUN Creatinine Estim Creat Clear Calc eGFR BUN/Creatinine Ratio Glucose Calculated Osmolality Calcium Corrected Calcium Phosphorus Magnesium Total Bilirubin AST ALT Alkaline Phosphatase Total Protein Albumin Globulin Albumin/Globulin Ratio 25-OH Vitamin D Total 53.6 H PTH Intact 3.6 L Random Vancomycin 02/21/25 02/22/25 18:34 05:11 WBC 7.8 RBC 4.58 Hgb 12.3 L Hct 37.7 L MCV 82 MCH 26.9 MCHC 32.6 RDW Std Deviation 47.9 H Plt Count 323 Neut % (Auto) 50 Lymph % (Auto) 39 [place] % (Auto) 7 Eos % (Auto) 3 Baso % (Auto) 0 Neut # (Auto) 3.9 Lymph # (Auto) 3.0 [place] # (Auto) 0.6 Eos # (Auto) 0.2 Baso # (Auto) 0.0 Immature Gran # (Auto) 0.03 H Absolute Nucleated RBC 0.00 Immature Gran % 0 Nucleated RBC % 0 Sodium 146 H 145 Potassium 3.1 L Chloride 106 Carbon Dioxide 27.0 Anion Gap 12 BUN 18 Creatinine 1.0 Estim Creat Clear Calc 63.7 eGFR > 60 BUN/Creatinine Ratio 18 Glucose 100 Calculated Osmolality 290 Calcium 11.5 H D Corrected Calcium 11.5 H D Phosphorus 2.3 L Magnesium 1.3 L Total Bilirubin 0.3 AST < 10 ALT < 7 L Alkaline Phosphatase 141 H Total Protein 7.4 Albumin 4.2 Globulin 3.2 Albumin/Globulin Ratio 1.3 25-OH Vitamin D Total PTH Intact Random Vancomycin 9.8 ABG Interpretation ABG results: 02/19/25 14:50 VBG pH 7.48 VBG pCO2 45 VBG pO2 66 H VBG Base Excess 9 H Quality Measures Quality Measures VTE prophylaxis Assessment & Plan Assessment Current Active Medications: Generic Name Dose Route Start Last Admin Trade Name Freq PRN Reason Stop Dose Admin Acetaminophen 650 mg 02/19/25 17:43 02/22/25 03:00 Acetaminophen 325 Mg Tablet PO 03/21/25 17:42 650 mg Q6H PRN Administration Fever >101.5 or pain 1-3 Desmopressin Acetate 1 mcg 02/20/25 08:00 02/22/25 09:32 Desmopressin Acetate 4 Mcg/Ml Vial IV 03/22/25 07:59 1 mcg QDAY CRISTINA Administration Fluconazole 400 mg 02/20/25 09:00 02/22/25 09:32 Fluconazole 100 Mg Tablet PO 02/27/25 08:59 400 mg QDAY CRISTINA Administration Heparin Sodium (Porcine) 5,000 unit 02/19/25 22:00 02/22/25 05:10 Heparin Sod Inj 5000 Unit/Ml Vial SC 03/05/25 21:59 5,000 unit Q8HR CRISTINA Administration Vancomycin/Sodium Chloride 750 mg in 150 mls @ 120 mls/hr 02/22/25 10:00 02/22/25 09:31 Vancomycin/Ns 750 Mg Ivpb IV 03/01/25 09:59 120 mls/hr QDAY@1000,2200 CRISTINA Administration Lorazepam 0.5 mg 02/19/25 19:07 02/22/25 05:53 Lorazepam 0.5 Mg Tablet PO 02/24/25 19:06 0.5 mg Q8HR PRN Administration ANXIETY Multivitamins 1 tab 02/20/25 12:45 02/22/25 09:32 Multivitamins Tablet PO 03/22/25 12:44 1 tab QDAY CRISTINA Administration Pantoprazole Sodium 40 mg 02/21/25 09:00 02/22/25 09:32 Pantoprazole 40 Mg Tablet PO 03/23/25 08:59 40 mg Q12HR CRISTINA Administration Pharmacy Consult 1 each 02/22/25 09:00 Vancomycin Pharmacy To Dose 1 Each Each IV 03/24/25 08:59 QDAY PRN PROTOCOL Potassium Chloride 40 meq 02/22/25 12:00 Potassium Chloride 20 Meq Tabcr PO 02/22/25 12:01 X1 ONE Potassium Phos/Sodium Phos 1 packet 02/21/25 21:00 02/22/25 09:32 N[facility] Mbdb 1 Packet (1.5 Gm) PO 03/23/25 20:59 1 packet BID CRISTINA Administration Sennosides 1 tab 02/20/25 09:00 02/22/25 09:32 Senna Tablet PO 03/22/25 08:59 1 tab QDAY CRISTINA Administration Protocol Sertraline HCl 50 mg 02/20/25 21:00 02/21/25 20:59 Sertraline Hcl 25 Mg Tablet PO 03/22/25 20:59 50 mg HS CRISTINA Administration Thiamine HCl 100 mg 02/20/25 09:00 02/22/25 09:32 Thiamine 100 Mg Tablet PO 03/22/25 08:59 100 mg QDAY CRISTINA Administration Plan Patient is a 54 year old male with a past medical history significant for chronic respiratory failure on 3L O2 at baseline, quadriplegia, history of disseminated coccidiomycosis, primary hypertension, [id number] diabetes mellitus type 2, hyperlipidemia, hydrocephalus s/p COATER HELPER shunt presenting on 02/19 for altered mental status, admitted for AMS likely secondary to hypercalcemia. #GPC bacteremia #Stage III coccygeal pressure injury #GEMMA, resolved On admission, patient presented with altered mental status and GEMMA (creatinine 1.4, baseline 1-1.2) however WBC WNL and patient was afebrile, nontachycardic, not tachypnic. Unable to obtain ROS on admission due to altered mentation. Urine analysis was not obtained. 1/2 blood cultures 02/19 grew Staph epidermis, repeat Bcx 02/21 showed 2/2 bottles GPC (1/2 also grew Staph epidermis). Unknown source but possibly secondary to chronic pressure wounds on coccyx and lower extremities. Plan: - IV Vanc (02/22- - Wound care following - Follow up repeat bcx #Acute encephalopathy, resolving #Hypercalcemia, improving #Quadriplegic Presented with altered mental status and calcium of 15.1 (previous calcium November 2024 was 8.4). Facility reports that he has not been eating for a few days. Patient was previously a PEG tube but was removed, usually able to tolerate oral feeding. Reports this is due to decreased appetite and difficulty swallowing (will not specify beyond this), denies nausea or vomiting. Also endorses fatigue, denies any seizure-like activity. Patient is bed bound due to quadriplegia. Baseline mentation GCS 14, alert but intermittently confused per facility. Able to respond appropriately to questions on exam however appears very fatigued and lethargic. Oriented to self and place but not time. PTH low at 3.6. S/p 1 L NS in ED. S/p 1L LR 200 mls/hr. S/p Pamidronate injection 60 mg x1, methylprednisolone 40 mg x1, denosumab x1 Plan: - Consulted director acute Dr. Richardson, appreciate recommendations - Strict ins and outs - Encourage oral rehydration, restart IV NS if inadequate - CTM calcium #Central DI #Hypernatremia Consulted director acute Dr. Richardson on last admission 11/16-11/22 for persistent hypernatremia, suspected central DI and started on Desmopressin. - S/p IV D5W 50 mls/hr - Recheck sodium later this afternoon, if improved continue to encourage oral rehydration - CTM CMP daily - Desmopressin 1 mcg daily #Failure to thrive Previously required PEG tube feedings, tube was removed due to patient tolerating oral feeds. Per facility, has been refusing to eat/drink fluids for the past few days. Patient is a hospice patient at [facility], admitted 11/2024. - Thiamine daily - MV daily - Ensure - Dysphagia diet - Consulted bander - May reconsider PEG tube if continues to decline #Hypophosphatemia #Hypomagnesemia #Hypokalemia On admission, potassium 3.1, phosphorus 1.7. Likely secondary to inadequate nutrition and failure to thrive as above. -Replete accordingly -CTM electrolyte panel #History of disseminated cocci #Cocci meningitis #Hydrocephalus s/p COATER HELPER shunt (04/2024) Previously at correctional facility, currently on parole. Unknown reason why. Unclear how long patient has had cocci, unknown duration of treatment. - Continue fluconazole 400 mg daily - F/u cocci titer #History anxiety #History of depression - Zoloft 50 mg nightly - Ativan 0.5mg q8hr as needed Health Maintenance Disposition: Telemetry DVT prophylaxis: Heparin GI prophylaxis: Protonix Diet: Dysphagia CODE STATUS: Full Patient plan of care was discussed with the resident, Dr. Fontenot, and attending physician, Dr. Lagunas. Massiel Pringle, PGY-1 Attending Provider Attestation/Addendum I attest that I was physically present for the evaluation, physical examination, lab and imaging review of the patient with the residents. I discussed the case with the residents and agree with the findings and plans of care as documented above. Patient seen and evaluated at bedside, patient appears confused compared to yesterday he was alert and conversational but confused. D5W was discontinued overnight as patient's sodium improved to 145. Vital signs this morning also showed mildly elevated blood pressure and pulse around low 100s. Calcium level has consistently gone down, 11.5 this morning. Noted to have potassium of 3.1, phosphorus 2.3, magnesium 1.3, repleted accordingly. Patient has been able to drink free water, we will request with patient's RN for encouragement, we will hold off on IV hydration for now. We will obtain follow-up sodium level, nephrology following closely, appreciate recommendations. Tova Lagunas MD
[2025-02-22 16:19] LABS: Sodium 143 mMol/L (136-145)
[2025-02-22] MEDS: SERTRALINE HCL 25 MG TABLET 50 MG PO (21:48)
[2025-02-23] VITALS (9 sets, daily range): BP systolic 108–134; BP diastolic 67–96; PULSE 97–117; RESP 14–96; TEMP 36.6–37.2; O2SAT 95–99; BMI 16.5
[2025-02-23 05:15] LABS: Basophils # (Auto) 0.0 Thou/mm3 (0.0-0.2); Basophils % (Auto) 0 % (0-2.5); Eosinophils # (Auto) 0.3 Thou/mm3 (0.0-0.5); Eosinophils % (Auto) 4 % (0-10); Hematocrit 37.1 % (41.0-53.0); Hemoglobin 12.4 g/dL (13.5-16.0); Immature Granulocytes Auto 0.03 Thou/mm3 (0.00-0.00); Lymphocytes # (Auto) 3.4 Thou/mm3 (1.0-4.8); Lymphocytes % (Auto) 43 % (10-50); Mean Corpuscular HGB Conc 33.4 g/dl (31.0-37.0); Mean Corpuscular Hemoglobin 26.8 pg (25.0-35.0); Mean Corpuscular Volume 80 fL (80-100); Monocytes # (Auto) 0.7 Thou/mm3 (0.0-0.8); Monocytes % (Auto) 8 % (0-12); Neutrophils # (Auto) 3.5 Thou/mm3 (1.8-7.7); Neutrophils % (Auto) 45 % (37-80); Nucleated Red Blood Cell # 0.00 Thou/mm3 (0.00-0.00); Nucleated Red Blood Cell % 0 /100 WBC (0); Platelet Count 323 Thou/mm3 (140-440); RDW Standard Deviation 46.5 fL (35.1-43.9); Red Blood Count 4.62 Miln/mm3 (4.50-5.90); White Blood Count 7.9 Thou/mm3 (3.8-10.6)
[2025-02-23] MEDS: HEPARIN SOD INJ 5000 UNIT/ML VIAL SC ×3 (05:54→22:01)
[2025-02-23 06:08] LABS: Alanine Aminotransferase < 7 U/L (10-49); Albumin, Serum 4.2 gm/dL (3.5-5.0); Albumin/Globulin Ratio 1.2 (1.2-2.2); Alkaline Phosphatase 147 U/L (46-116); Anion Gap 13 (7-16); Aspartate Amino Transferase < 10 U/L (0-34); BUN/Creatinine Ratio 14 Ratio (12-20); Bilirubin,Total 0.4 mg/dL (0.3-1.2); Blood Urea Nitrogen 15 mg/dL (9-23); Calcium 10.7 mg/dL (8.3-10.6); Calcium (Corrected) 10.7 mg/dL (8.5-10.1); Carbon Dioxide 22.6 mMol/L (20.0-31.0); Chloride 108 mMol/L (98-107); Creatinine (Component) 1.1 mg/dL (0.6-1.3); Estimated Creatinine Clearance 56.1 mL/min (>60); Globulin 3.6 gm/dL (2.3-3.5); Glucose 92 mg/dL (74-106); Magnesium 1.8 mg/dL (1.6-2.6); Osmolality,Calculated 287 (275-295); Phosphorous 1.2 mg/dL (2.4-5.1); Potassium 3.2 mMol/L (3.4-5.1); Sodium 144 mMol/L (136-145); Total Protein 7.8 gm/dL (5.7-8.2); eGFR > 60 See Note
--- NOTE | 2025-02-23 07:36 | PD.RESPRO ---
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 Per nurse, patient has been increasingly lethargic, refusing food, and minimally interactive compared to his baseline. At baseline, he is bedbound but usually alert and able to answer questions appropriately. On admission he was noted to have severe hypercalcemia. Renal consultation requested for hypercalcemia. ED Course: Vitals: BP 105/81, HR 96, RR 18, afebrile, 95% on room air Labs: Ca 15.1, Na 147, K 3.1, Phos 1.7, Mg 1.8, Cr 1.4; PCT 1.38; trop neg; VBG alkalemic. EKG NSR short NH; CXR no PNA Imaging: CT head negative for acute pathology. Given NS 1 L IV bolus in the ED Admitted for altered mental status secondary to hypercalcemia. ER provider gave 1 dose of pamidronate. Patient was started on IV fluids and was admitted toTelemetry. Past Medical History: As above Surgical History: BUTTONHOLE MACHINE OPERATOR shunt placement Medications: Rehab medications included atorvastatin, desmopressin, iron, fluconazole, [place], ibuprofen, Zoloft Allergies: NKDA Family history: Unable to obtain Social history: SNF resident; bedbound. Unable to obtain due to altered mental status. 02/20/2025: Patient currently seen in telemetry. He seems to be confused and quadriplegic in bed. Looks older than his stated age. Blood pressure 154/87, heart rate 85, afebrile. WBC 7.3, hemoglobin 11.9, platelets 286. Sodium 144, potassium 3.8, creatinine 1.1, lactic acid 1.4, corrected calcium 14.6, phosphorus 2.7, magnesium 1.5, LFTs normal, alk phos 143, albumin 4, TSH 0.8, urine calcium 8 urine tox screen positive for opiates. Chest x-ray was negative. 02/21/2025: Labs reviewed and patient examined at the bedside. BUN:18, Cr: 1.1, eGFR:>60 Ca:13.8 Calcium is downtrending. Continue with IVF and Denosumab if needed. 02/22/2025: Labs reviewed and patient examined at the bedside. Patient look still look slightly confused. BUN:18, Cr: 1.0, eGFR:>60 Ca:11.5 Calcium is downtrending.Continue with IVF and desmopressin 02/23/2025: Labs reviewed and patient examined at the bedside. Patient looks restless. Able to understand and interact with medical providers. BUN:15, Cr: 1.1, eGFR:>60. corrected Ca: 10.7. Calcium is downtrending. Continue with IVF and desmopressin Exam Vital Signs Temp Pulse Resp BP Pulse Ox O2 Del Method O2 Flow Rate 98.3 F 113 H 17 134/67 H 95 Room Air 1 02/23/25 04:00 02/23/25 04:00 02/23/25 04:00 02/23/25 04:00 02/23/25 04:00 02/23/25 04:00 02/21/25 16:00 Narrative Exam General: Lethargic, AAO x2, More alert Eye: normal conjunctiva, no scleral icterus HENT: Normocephalic, atraumatic, hearing intact to conversation at normal volume, moist oral mucosa Neck: Supple, non-tender, no JVD, no lymphadenopathy Lungs: Non-labored respirations, symmetric chest rise, Clear to auscultate bilaterally, No wheezing, rhonchi, crackles Heart: Peripheral pulses intact bilaterally, Regular Rate and Rhythm. Abdomen: Soft, non-tender, non-distended, no palpable masses Musculoskeletal: Normal range of motion and strength, No cyanosis or edema, No visible joint swelling Skin: Skin is dry and few scratches Neuro: Cranial nerves II-XII grossly intact.Sensations intact to light touch. Objective Labs 02/24/25 05:24 02/23/25 13:15 Labs: Laboratory Results - last 24 hr 02/22/25 02/23/25 15:50 04:25 WBC 7.9 RBC 4.62 Hgb 12.4 L Hct 37.1 L MCV 80 MCH 26.8 MCHC 33.4 RDW Std Deviation 46.5 H Plt Count 323 Neut % (Auto) 45 Lymph % (Auto) 43 [place] % (Auto) 8 Eos % (Auto) 4 Baso % (Auto) 0 Neut # (Auto) 3.5 Lymph # (Auto) 3.4 [place] # (Auto) 0.7 Eos # (Auto) 0.3 Baso # (Auto) 0.0 Immature Gran # (Auto) 0.03 H Absolute Nucleated RBC 0.00 Immature Gran % 0 Nucleated RBC % 0 Sodium 143 144 Potassium 3.2 L Chloride 108 H Carbon Dioxide 22.6 Anion Gap 13 BUN 15 Creatinine 1.1 Estim Creat Clear Calc 56.1 L eGFR > 60 BUN/Creatinine Ratio 14 Glucose 92 Calculated Osmolality 287 Calcium 10.7 H Corrected Calcium 10.7 H Phosphorus 1.2 L Magnesium 1.8 Total Bilirubin 0.4 AST < 10 ALT < 7 L Alkaline Phosphatase 147 H Total Protein 7.8 Albumin 4.2 Globulin 3.6 H Albumin/Globulin Ratio 1.2 ABG Interpretation ABG results: 02/19/25 14:50 VBG pH 7.48 VBG pCO2 45 VBG pO2 66 H VBG Base Excess 9 H Quality Measures Quality Measures VTE prophylaxis Assessment & Plan Assessment Current Active Medications: Generic Name Dose Route Start Last Admin Trade Name Freq PRN Reason Stop Dose Admin Acetaminophen 650 mg 02/19/25 17:43 02/22/25 03:00 Acetaminophen 325 Mg Tablet PO 03/21/25 17:42 650 mg Q6H PRN Administration Fever >101.5 or pain 1-3 Desmopressin Acetate 1 mcg 02/20/25 08:00 02/22/25 09:32 Desmopressin Acetate 4 Mcg/Ml Vial IV 03/22/25 07:59 1 mcg QDAY CRISTINA Administration Fluconazole 400 mg 02/20/25 09:00 02/22/25 09:32 Fluconazole 100 Mg Tablet PO 02/27/25 08:59 400 mg QDAY CRISTINA Administration Heparin Sodium (Porcine) 5,000 unit 02/19/25 22:00 02/23/25 05:54 Heparin Sod Inj 5000 Unit/Ml Vial SC 03/05/25 21:59 5,000 unit Q8HR CRISTINA Administration Vancomycin/Sodium Chloride 750 mg in 150 mls @ 120 mls/hr 02/22/25 10:00 02/22/25 21:48 Vancomycin/Ns 750 Mg Ivpb IV 03/01/25 09:59 120 mls/hr QDAY@1000,2200 CRSITINA Administration Potassium Phosphate 15 mmol in 250 mls @ 62.5 mls/hr 02/23/25 07:30 Pot Phos 15 Mmol In Ns 250 Ml IV 02/23/25 15:29 Q4H CRISTINA Magnesium Sulfate 2 gm in 50 mls @ 25 mls/hr 02/23/25 07:30 Magnesium Sulfate Ivpb IV 02/23/25 09:29 X1 ONE Dextrose 1,000 mls @ 100 mls/hr 02/23/25 07:45 D5w IV 03/25/25 07:44 .Q10H CRISTINA Lorazepam 0.5 mg 02/19/25 19:07 02/22/25 05:53 Lorazepam 0.5 Mg Tablet PO 02/27/25 19:06 0.5 mg Q8HR PRN Administration ANXIETY Multivitamins 1 tab 02/20/25 12:45 02/22/25 09:32 Multivitamins Tablet PO 03/22/25 12:44 1 tab QDAY CRISTINA Administration Pantoprazole Sodium 40 mg 02/21/25 09:00 02/22/25 21:49 Pantoprazole 40 Mg Tablet PO 03/23/25 08:59 40 mg Q12HR CRISTINA Administration Pharmacy Consult 1 each 02/22/25 09:00 Vancomycin Pharmacy To Dose 1 Each Each IV 03/24/25 08:59 QDAY PRN PROTOCOL Potassium Chloride 40 meq 02/23/25 11:00 Potassium Chloride 20 Meq Tabcr PO 02/23/25 11:01 X1 ONE Potassium Phos/Sodium Phos 1 packet 02/21/25 21:00 02/22/25 21:48 Naph,[facility] Mbdb 1 Packet (1.5 Gm) PO 03/23/25 20:59 1 packet BID CRISTINA Administration Sennosides 1 tab 02/20/25 09:00 02/22/25 09:32 Senna Tablet PO 03/22/25 08:59 1 tab QDAY CRISTINA Administration Protocol Sertraline HCl 50 mg 02/20/25 21:00 02/22/25 21:48 Sertraline Hcl 25 Mg Tablet PO 03/22/25 20:59 50 mg HS CRISTINA Administration Thiamine HCl 100 mg 02/20/25 09:00 02/22/25 09:32 Thiamine 100 Mg Tablet PO 03/22/25 08:59 100 mg QDAY CRISTINA Administration Plan 54-year-old male with past medical history of quadriplegia, chronic respiratory failure on 3 L O2 at baseline, disseminated coccidioidomycosis on long-term fluconazole, hydrocephalus s/p BUTTONHOLE MACHINE OPERATOR shunt, HTN, HLD, T2DM, and prior PEG tube (removed) who presented on 01/19 for confusion and poor oral intake over the past several days. Renal consultation requested for hypercalcemia. #Altered mental status #Hypercalcemia, improving #Quadriplegic -On admission, Altered mental status and calcium of 15.1 (previous calcium November 2024 was 8.4). -Facility reports that he has not been eating for a few days. Patient was previously a PEG tube but was removed, usually able to tolerate oral feeding. -Also endorses fatigue, denies any seizure-like activity. Patient is bed bound due to quadriplegia. -Baseline mentation GCS 14, alert but intermittently confused per facility. Able to respond appropriately to questions on exam however appears very fatigued and lethargic. -Currently, BUN:15, Cr: 1.1, eGFR:>60. corrected Ca: 10.7 Plan: - Continue IV D5W 100ml/hr - Strict ins and outs - F/u PTH - CTM calcium #Central DI #Hypernatremia -Recent Dx of partial central DI. Sodium 144 -Currently, Sodium: 144 Plan: - CTM CMP daily - Continue Desmopressin 1 mcg daily - Continue IVF [id number], If improve switch to oral rehydration #Hypophosphatemia #Hypomagnesemia #Hypokalemia On admission, potassium 3.1, phosphorus 1.7. Likely secondary to inadequate nutrition and failure to thrive as above. -Replete accordingly -CTM electrolyte panel #History of disseminated cocci #Cocci meningitis #Hydrocephalus s/p BUTTONHOLE MACHINE OPERATOR shunt (04/2024) #History anxiety #History of depression -Management per Primary Hospitalist team Thank you for allowing us to participate in the care of your patient. Assessment and plan discussed with my attending physician Dr. Dylan Nelson (PGY-1)- Internal medicine resident Attending Provider Attestation/Addendum Patient seen and examined with resident physician Dr. Nelson. Note reviewed, agree with findings and recommendations. Calcium and creatinine seems to be improving. Continue with fluids. renal [place] ok for dc Likely having refeeding syndrome. Agree with replacing electrolytes prior to D5W. Increase protein intake.
[2025-02-23] MEDS: POT PHOS 15 mMol in NS 250 ML 15 MMOL/250 ML BAG 62.5 MMOL IV ×2 (08:05→12:29)
[2025-02-23] MEDS: Magnesium Sulfate 2 GM Ivpb 2 GM/50 ML BAG IV (08:06)
[2025-02-23] MEDS: MULTIVITAMINS TABLET 1 TAB PO (08:08)
[2025-02-23] MEDS: THIAMINE 100 MG TABLET PO (08:08)
[2025-02-23] MEDS: NAPH,KPH MBDB 1 PACKET (1.5 GM) PO ×2 (08:08→21:51)
[2025-02-23] MEDS: FLUCONAZOLE 100 MG TABLET 400 MG PO (08:08)
[2025-02-23] MEDS: PANTOPRAZOLE 40 MG TABLET PO ×2 (08:08→21:51)
[2025-02-23] MEDS: DESMOPRESSIN ACETATE 4 MCG/ML VIAL 1 MCG IV (08:23)
--- NOTE | 2025-02-23 09:08 | ESPR_ITS ---
<Statement entered by Nuno Fontenot MD - 02/23/25 15:12> No acute overnight events. Vitals are stable and patient noted to be mildly tachycardic in the low 100. On physical examination, patient is more talkative today and noted to be at his baseline. Labs done this morning showed stable hemoglobin, hypokalemia 3.2, calcium downtrending, 10.7. Supplemented with potassium and phosphate. Blood cultures sent on 02/22/2025 came back negative after 24 hours. Final cultures from 02/21/2025 are still pending. Once the final results comes out, we will discharge patient on appropriate antibiotics but looks like contamination based on the culture results. Tried to contact the father but unsuccessful, drug abuse social worker reported that they talk to the patient's father and he reported that he wants the patient back to the [facility] facility which will be done likely in the next 24 to 48 hours. Patient also suspected to have refeeding syndrome in view of continuous hypokalemia and hypophosphatemia as patient noted to have decreased oral intake before coming to the hospital and as he is having good intake since last 2 to 3 days. # GPC bacteremia, likely contaminant # Acute on chronic encephalopathy, resolved # Hypercalcemia, likely from immobilization, resolving # GEMMA, resolved # Hypernatremia, resolved # Hypokalemia, resolving # Hypophosphatemia, resolving # ? 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 Marin Fontenot, PGY2 Documentation for date of: 02/23/25 Subjective Subjective Interval history: No acute overnight events. Patient has returned to his baseline mentation. Calcium level improving and sodium has risen to upper limit of normal, will restart on IV D5W at 100 mL/h. Repeat blood culture grew GPC in 2/2 bottles, one of which grew staph epidermis same as initial blood cultures. Pending another repeat blood culture, likely contamination but will continue treating with IV vanc. Electrolyes replaced, likely secondary to malnutrition. Of note, patient continues to be tachycardic, likely secondary to dehydration versus uncontrolled pain. Started on morphine as needed. IV fluids as above. Will continue to monitor HR. Patient has good oral intake, encouraged to continue adequate hydration. Once repeat blood cultures are negative, anticipate discharge back to [facility] at home with patient's father. Exam Vital Signs Temp Pulse Resp BP Pulse Ox O2 Del Method O2 Flow Rate 97.8 F 112 H 21 H 108/83 96 Room Air 1 02/23/25 08:00 02/23/25 08:20 02/23/25 08:20 02/23/25 08:00 02/23/25 08:20 02/23/25 08:00 02/21/25 16:00 Narrative Exam Physical Exam General: Alert, answering questions but confused. Back to baseline mentation. Cachetic and disheveled. Quadraplegic, bedbound. HEENT: Normocephalic, atraumatic, mucous membranes dry. Heart: Tachycardic. Regular rate and rhythm, normal S1 and S2, no murmurs. Lungs: Clear to auscultation with no wheezing or crackles. Abdomen: Soft, nondistended, nontender, positive bowel sounds. No guarding or rebound tenderness. Neurologic: Alert and oriented x1 (oriented to self, place or not time). Extremities: No edema. Contracted lower extremities, stiff. Skin: Few scabs and scratches on legs bilaterally. Very dry skin. Multiple pressure ulcers of lower extremities, stage 3 coccyxial wound. Objective Labs 02/24/25 05:24 02/24/25 05:24 Labs: Laboratory Results - last 24 hr 02/22/25 02/23/25 15:50 04:25 WBC 7.9 RBC 4.62 Hgb 12.4 L Hct 37.1 L MCV 80 MCH 26.8 MCHC 33.4 RDW Std Deviation 46.5 H Plt Count 323 Neut % (Auto) 45 Lymph % (Auto) 43 [place] % (Auto) 8 Eos % (Auto) 4 Baso % (Auto) 0 Neut # (Auto) 3.5 Lymph # (Auto) 3.4 [place] # (Auto) 0.7 Eos # (Auto) 0.3 Baso # (Auto) 0.0 Immature Gran # (Auto) 0.03 H Absolute Nucleated RBC 0.00 Immature Gran % 0 Nucleated RBC % 0 Sodium 143 144 Potassium 3.2 L Chloride 108 H Carbon Dioxide 22.6 Anion Gap 13 BUN 15 Creatinine 1.1 Estim Creat Clear Calc 56.1 L eGFR > 60 BUN/Creatinine Ratio 14 Glucose 92 Calculated Osmolality 287 Calcium 10.7 H Corrected Calcium 10.7 H Phosphorus 1.2 L Magnesium 1.8 Total Bilirubin 0.4 AST < 10 ALT < 7 L Alkaline Phosphatase 147 H Total Protein 7.8 Albumin 4.2 Globulin 3.6 H Albumin/Globulin Ratio 1.2 ABG Interpretation ABG results: 02/19/25 14:50 VBG pH 7.48 VBG pCO2 45 VBG pO2 66 H VBG Base Excess 9 H Quality Measures Quality Measures VTE prophylaxis Assessment & Plan Assessment Current Active Medications: Generic Name Dose Route Start Last Admin Trade Name Freq PRN Reason Stop Dose Admin Acetaminophen 650 mg 02/19/25 17:43 02/22/25 03:00 Acetaminophen 325 Mg Tablet PO 03/21/25 17:42 650 mg Q6H PRN Administration Fever >101.5 or pain 1-3 Desmopressin Acetate 1 mcg 02/20/25 08:00 02/23/25 08:23 Desmopressin Acetate 4 Mcg/Ml Vial IV 03/22/25 07:59 1 mcg QDAY CRISTINA Administration Fluconazole 400 mg 02/20/25 09:00 02/23/25 08:08 Fluconazole 100 Mg Tablet PO 02/27/25 08:59 400 mg QDAY CRISTINA Administration Heparin Sodium (Porcine) 5,000 unit 02/19/25 22:00 02/23/25 05:54 Heparin Sod Inj 5000 Unit/Ml Vial SC 03/05/25 21:59 5,000 unit Q8HR CRISTINA Administration Vancomycin/Sodium Chloride 750 mg in 150 mls @ 120 mls/hr 02/22/25 10:00 02/22/25 21:48 Vancomycin/Ns 750 Mg Ivpb IV 03/01/25 09:59 120 mls/hr QDAY@1000,2200 CRISTINA Administration Potassium Phosphate 15 mmol in 250 mls @ 62.5 mls/hr 02/23/25 07:30 02/23/25 08:05 Pot Phos 15 Mmol In Ns 250 Ml IV 02/23/25 15:29 62.5 mls/hr Q4H CRISTINA Administration Magnesium Sulfate 2 gm in 50 mls @ 25 mls/hr 02/23/25 07:30 02/23/25 08:06 Magnesium Sulfate Ivpb IV 02/23/25 09:29 25 mls/hr X1 ONE Administration Dextrose 1,000 mls @ 100 mls/hr 02/23/25 07:45 D5w IV 03/25/25 07:44 .Q10H CRISTINA Lorazepam 0.5 mg 02/19/25 19:07 02/22/25 05:53 Lorazepam 0.5 Mg Tablet PO 02/27/25 19:06 0.5 mg Q8HR PRN Administration ANXIETY Multivitamins 1 tab 02/20/25 12:45 02/23/25 08:08 Multivitamins Tablet PO 03/22/25 12:44 1 tab QDAY CRISTINA Administration Pantoprazole Sodium 40 mg 02/21/25 09:00 02/23/25 08:08 Pantoprazole 40 Mg Tablet PO 03/23/25 08:59 40 mg Q12HR CRISTINA Administration Pharmacy Consult 1 each 02/22/25 09:00 Vancomycin Pharmacy To Dose 1 Each Each IV 03/24/25 08:59 QDAY PRN PROTOCOL Potassium Chloride 40 meq 02/23/25 11:00 Potassium Chloride 20 Meq Tabcr PO 02/23/25 11:01 X1 ONE Potassium Phos/Sodium Phos 1 packet 02/21/25 21:00 02/23/25 08:08 [facility] 1 Packet (1.5 Gm) PO 03/23/25 20:59 1 packet BID CRISTINA Administration Sennosides 1 tab 02/20/25 09:00 02/23/25 08:07 Senna Tablet PO 03/22/25 08:59 1 tab QDAY CRISTINA Administration Protocol Sertraline HCl 50 mg 02/20/25 21:00 02/22/25 21:48 Sertraline Hcl 25 Mg Tablet PO 03/22/25 20:59 50 mg HS CRISTINA Administration Thiamine HCl 100 mg 02/20/25 09:00 02/23/25 08:08 Thiamine 100 Mg Tablet PO 03/22/25 08:59 100 mg QDAY CRISTINA Administration Plan Patient is a 54 year old male with a past medical history significant for chronic respiratory failure on 3L O2 at baseline, quadriplegia, history of disseminated coccidiomycosis, primary hypertension, [id number] diabetes mellitus type 2, hyperlipidemia, hydrocephalus s/p [employer] shunt presenting on 02/19 for altered mental status, admitted for acute encephalopathy likely secondary to hypercalcemia. #GPC bacteremia? #Stage III coccygeal pressure injury #GEMMA, resolved On admission, patient presented with altered mental status and GEMMA (creatinine 1.4, baseline 1-1.2) however WBC WNL and patient was afebrile, nontachycardic, not tachypnic. Unable to obtain ROS on admission due to altered mentation. Urine analysis was not obtained. 1/2 blood cultures 02/19 grew Staph epidermis, repeat Bcx 02/21 showed 2/2 bottles GPC (1/2 also grew Staph epidermis). Unknown source but possibly secondary to chronic pressure wounds on coccyx and lower extremities, likely contamination. Plan: - IV Vanc (02/22- - Wound care following - Follow up repeat bcx #Acute on chronic encephalopathy #Hypercalcemia, improving #Quadriplegia, bedbound, likely 2/2 cocci Presented with altered mental status and calcium of 15.1 (previous calcium November 2024 was 8.4). Facility reports that he has not been eating for a few days. Patient previously had a PEG tube but was removed on previous admission, has been able to tolerate oral feeding. Reported decreased appetite and difficulty swallowing (will not specify beyond this), denies nausea or vomiting. Able to respond appropriately to questions on exam however appears very fatigued and lethargic. Patient is bed bound due to quadriplegia. Unclear etiology but likely secondary to disseminated cocci, including cocci meningitis. Per facility, baseline mentation GCS 14, alert but confused (A&Ox1). Oriented to self but not to time or place. PTH low at 3.6, unlikely primary hyperparathyroidism. S/p 1 L NS in ED. S/p 1L LR 200 mls/hr. S/p Pamidronate injection 60 mg x1, methylprednisolone 40 mg x1, denosumab x1 Plan: - Consulted dyehouse worker Dr. Richardson, appreciate recommendations - Strict ins and outs - Encouraged oral rehydration - IV D5W 100 mls/hr - CTM calcium #Central DI #Hypernatremia, improving Consulted dyehouse worker Dr. Richardson on last admission 11/16-11/22/24 for persistent hypernatremia, diagnosed with central DI and started on Desmopressin. - Desmopressin 1 mcg daily - CTM CMP daily #Failure to thrive Previously required PEG tube feedings, tube was removed due to patient tolerating oral feeds. Per facility, has been refusing to eat/drink fluids for the past few days prior to admission. Patient is a hospice patient at [facility], admitted 11/2024. - Thiamine daily - MV daily - Ensure - Dysphagia diet - Consulted budget analyst - May need to reconsider PEG tube if continues to decline #Hypophosphatemia #Hypomagnesemia #Hypokalemia On admission, potassium 3.1, phosphorus 1.7. Likely secondary to inadequate nutrition and failure to thrive as above. -Replete accordingly -CTM electrolyte panel #History of disseminated cocci #Cocci meningitis #Hydrocephalus s/p [employer] shunt (04/2024) Previously at correctional facility, currently on parole. Unknown reason why. Unclear how long patient has had cocci, unknown duration of treatment. Likely contributory to patient's bedbound status. - Continue fluconazole 400 mg daily - Pending cocci titer #History anxiety #History of depression - Zoloft 50 mg nightly - Ativan 0.5mg q8hr as needed Health Maintenance Disposition: Telemetry DVT prophylaxis: Heparin GI prophylaxis: Protonix Diet: Dysphagia CODE STATUS: Full Patient plan of care was discussed with the resident, Dr. Fontenot, and attending physician, Dr. Funes. Massiel Pringle, PGY-1 Attending Provider Attestation/Addendum I have examined the patient, reviewed labs and imaging findings, discussed the case with the resident(s), and reviewed entered orders. I agree with the plan of care as outlined in this note, with these additional summaries/recommendations: Patient seen at bedside. No acute overnight events. Patient's mental status continues to improve. Patient diagnosed with acute on chronic encephalopathy. He has chronic encephalopathy at baseline secondary to history of cocci meningitis and appears close to baseline. Continue to treat underlying etiologies and monitor for resolution. Nonpharmacological measures to prevent delirium. Continue IV fluids for hypercalcemia. Nephrology following for central diabetes insipidus. Continue IV antibiotics for questionable bacteremia. Awaiting repeat blood culture results. Repeat hematology and chemistry panel in AM. Continue wound care for pressure ulcers. Patient updated on the plan and in agreement. All questions answered to satisfaction. Please see residents note for additional details and management. Dr. Marin MD
--- NOTE | 2025-02-23 09:14 | PC.SS ---
SS spoke to Dorothy from [facility] who states pt is able to return with [facility]. Per Dorothy from [facility], pt does not require insurance authorization due to being under Hospice Services. Dorothy from [facility] provided mom, Caterina's phone# [phone] and Nelda, sister, phone# [phone]. SS called mom but was only able to leave voicemail with phone#. SS spoke to Nelda, patient's sister who is requesting pt return to her home address: [address] [place] [id number]. Nelda is aware SS has been attempting to contact patient's dad who is the point of contact to confirm d/c plan to home or back to [facility]. Nelda also attempted to contact dad but was unsuccessful. has explained pt is able to return to [facility] and then d/c home from [facility] if dad is unable to be contacted.
[2025-02-23 10:12] LABS: Vancomycin,Trough 19.0 mcg/mL (5.0-10.0)
[2025-02-23] MEDS: VANCOMYCIN/NS 750 MG IVPB 750 MG/150 ML BAG 120 MG IV ×2 (10:50→21:51)
[2025-02-23] MEDS: DEXTROSE 5%-WATER 1,000 ML 100 ML IV ×2 (10:55→22:55)
[2025-02-23 13:34] LABS: Sodium 144 mMol/L (136-145)
--- NOTE | 2025-02-23 14:13 | PC.SS ---
SS spoke to patient's dad, Tommy Bernabe who is aware SS has attempted to call several times but was unsuccessful. Dad is agreeable for SS to speak with his dtrNelda if dad is unavailable. SS provided verbal options for d/c to home with family or return [facility]. Dad is requesting for pt to return to [facility] with [facility] upon dc. Dad is aware pt possibly d/c tomorrow or and is ok with SS contacting is Nelda frank to inform her.
[2025-02-23 14:36] LABS: Hepatitis A Antibody IgM Non Reactive (Non React); Hepatitis B Core Antibody IgM Non Reactive (Non React); Hepatitis B Surface Antigen Non Reactive (Non React); Hepatitis C Antibody Non Reactive (Non React)
--- NOTE | 2025-02-23 16:23 | PC.SS ---
SS has sent Hospice referral to [facility] using [facility] [facility] and fax.
[2025-02-23] MEDS: SERTRALINE HCL 25 MG TABLET 50 MG PO (21:51)
[2025-02-23] MEDS: ACETAMINOPHEN 325 MG TABLET 650 MG PO (23:08)
[2025-02-24] VITALS: BP 119/88; PULSE 102; PULSE 80; RESP 20; TEMP 36.4; O2SAT 94
[2025-02-24 04:00] VITALS: BP 107/87; PULSE 103; RESP 30; TEMP 37.3; O2SAT 98
[2025-02-24 04:48] VITALS: BMI 17.0
[2025-02-24 06:05] LABS: Basophils # (Auto) 0.0 Thou/mm3 (0.0-0.2); Basophils % (Auto) 0 % (0-2.5); Eosinophils # (Auto) 0.4 Thou/mm3 (0.0-0.5); Eosinophils % (Auto) 6 % (0-10); Hematocrit 36.0 % (41.0-53.0); Hemoglobin 11.5 g/dL (13.5-16.0); Immature Granulocytes Auto 0.04 Thou/mm3 (0.00-0.00); Lymphocytes # (Auto) 2.9 Thou/mm3 (1.0-4.8); Lymphocytes % (Auto) 37 % (10-50); Mean Corpuscular HGB Conc 31.9 g/dl (31.0-37.0); Mean Corpuscular Hemoglobin 26.9 pg (25.0-35.0); Mean Corpuscular Volume 84 fL (80-100); Monocytes # (Auto) 0.6 Thou/mm3 (0.0-0.8); Monocytes % (Auto) 7 % (0-12); Neutrophils # (Auto) 3.9 Thou/mm3 (1.8-7.7); Neutrophils % (Auto) 49 % (37-80); Nucleated Red Blood Cell # 0.00 Thou/mm3 (0.00-0.00); Nucleated Red Blood Cell % 0 /100 WBC (0); Platelet Count 301 Thou/mm3 (140-440); RDW Standard Deviation 50.1 fL (35.1-43.9); Red Blood Count 4.28 Miln/mm3 (4.50-5.90); White Blood Count 7.8 Thou/mm3 (3.8-10.6)
[2025-02-24] MEDS: HEPARIN SOD INJ 5000 UNIT/ML VIAL SC ×3 (06:44→21:57)
[2025-02-24 07:02] LABS: Alanine Aminotransferase < 7 U/L (10-49); Albumin, Serum 3.9 gm/dL (3.5-5.0); Albumin/Globulin Ratio 1.3 (1.2-2.2); Alkaline Phosphatase 138 U/L (46-116); Anion Gap 11 (7-16); Aspartate Amino Transferase 11 U/L (0-34); BUN/Creatinine Ratio 12 Ratio (12-20); Bilirubin,Total 0.3 mg/dL (0.3-1.2); Blood Urea Nitrogen 11 mg/dL (9-23); Calcium 9.1 mg/dL (8.3-10.6); Calcium (Corrected) 9.2 mg/dL (8.5-10.1); Carbon Dioxide 23.7 mMol/L (20.0-31.0); Chloride 106 mMol/L (98-107); Creatinine (Component) 0.9 mg/dL (0.6-1.3); Estimated Creatinine Clearance 71.0 mL/min (>60); Globulin 3.0 gm/dL (2.3-3.5); Glucose 100 mg/dL (74-106); Magnesium 1.6 mg/dL (1.6-2.6); Osmolality,Calculated 280 (275-295); Phosphorous 2.5 mg/dL (2.4-5.1); Potassium 3.4 mMol/L (3.4-5.1); Sodium 141 mMol/L (136-145); Total Protein 6.9 gm/dL (5.7-8.2); eGFR > 60 See Note
[2025-02-24 08:00] VITALS: BP 134/81; PULSE 102; RESP 17; TEMP 36.4; O2SAT 97
[2025-02-24] MEDS: Magnesium Sulfate 2 GM Ivpb 2 GM/50 ML BAG IV (08:38)
[2025-02-24] MEDS: NAPH,KPH MBDB 1 PACKET (1.5 GM) PO ×2 (08:39→21:57)
[2025-02-24] MEDS: PANTOPRAZOLE 40 MG TABLET PO (08:39)
[2025-02-24] MEDS: THIAMINE 100 MG TABLET PO (08:40)
[2025-02-24] MEDS: FLUCONAZOLE 100 MG TABLET 400 MG PO (08:40)
[2025-02-24] MEDS: MULTIVITAMINS TABLET 1 TAB PO (08:40)
--- NOTE | 2025-02-24 09:17 | PD.RESDS ---
Planned Discharge Date 02/24/25 DS: Providers Provider Date of admission: 02/19/25 17:43 Primary care physician: Physician No Primary/Family Admitting Provider: Tova Lagunas MD Attending Provider on Admission: Michael Funes MD Consults: 02/19/25 18:00 Consult to Nephrology Routine Comment: Consulting Provider: Omero Richardson 02/19/25 18:20 Referral Registered Dietitian Routine Comment: 02/19/25 23:08 Referral Wound Care Urgent Comment: [facility] /[facility] 02/20/25 07:32 Referral Speech Therapy Routine Comment: 02/23/25 14:16 Referral Hospice Routine Comment: Attending Provider on DC: Massiel Pringle DO Discharging Provider: Massiel Pringle DO Hospital Course Hospital Course Hospital course: No acute overnight events. Patient has returned to his baseline mentation. Calcium level improving and sodium has risen to upper limit of normal, will restart on IV D5W at 100 mL/h. Repeat blood culture grew GPC in 2/2 bottles, one of which grew staph epidermis same as initial blood cultures. Pending another repeat blood culture, likely contamination but will continue treating with IV vanc. Electrolyes replaced, likely secondary to malnutrition. Of note, patient continues to be tachycardic, likely secondary to dehydration versus uncontrolled pain. Started on morphine as needed. IV fluids as above. Will continue to monitor HR. Patient has good oral intake, encouraged to continue adequate hydration. Once repeat blood cultures are negative, anticipate discharge back to [facility] at home with patient's father. Time Spent with Patient Time attestation: Total time spent providing and/or coordinating discharge services: Exam Vital Signs Temp Pulse Resp BP Pulse Ox O2 Del Method O2 Flow Rate 97.6 F 102 H 17 134/81 H 97 Room Air 1 02/24/25 08:00 02/24/25 08:00 02/24/25 08:00 02/24/25 08:00 02/24/25 08:00 02/24/25 08:00 02/21/25 16:00 Discharge Plan Prescriptions/Referrals Prescriptions/Med Rec: No Action bisacodyl 10 mg suppository 10 mg GA Q72H PRN (Reason: constipation) bisacodyl [Dulcolax (bisacodyl)] 10 mg suppository 10 mg GA QDAY PRN (Reason: constipation) Rx Instructions: insert 1 suppository rectally as needed for constipation, to be administered the following shift if MOM is ineffective Fleet Enema 19-7 gram/118 mL enema 118 ml GA Q72H PRN (Reason: constipation) Rx Instructions: insert 1 dose rectally every 72 hrs as needed for constipation, to be administered the following shift if Dulcolax suppository is ineffective, notify MD if no result lorazepam [Ativan] 0.5 mg tablet 0.5 mg PO Q6H PRN (Reason: anxiety) magnesium hydroxide [Milk of Magnesia] 400 mg/5 mL suspension 30 ml PO Q72H PRN (Reason: constipation) Rx Instructions: give 30ml by mouth every 72 hours as needed for constipation no BM for 3 days morphine 20 mg/5 mL (4 mg/mL) solution 2 mg PO Q2H PRN (Reason: pain (scale score 4-6)) morphine 20 mg/5 mL (4 mg/mL) solution 4 mg PO Q2H PRN (Reason: pain (scale score 7-10)) ferrous sulfate [Feosol] 325 mg (65 mg iron) tablet 325 mg PO QDAY Qty: 30 0RF atorvastatin 40 mg tablet 40 mg PO HS Qty: 30 0RF desmopressin 0.1 mg tablet 0.1 mg PO DAILY Qty: 30 0RF sertraline [Zoloft] 50 mg tablet 50 mg PO QDAY cranberry 450 mg tablet 450 mg PO QDAY Rx Instructions: administer with a meal hydrocodone-acetaminophen 5-325 mg tablet 1 tab PO Q8H PRN (Reason: pain, moderate) ibuprofen [IBU] 400 mg tablet 400 mg PO Q8H PRN (Reason: mild pain (scale score 1-4)) artificial tears solution Drops 2 drp ophthalmic (eye) .Q4 HRS PRN (Reason: dry eyes) Rx Instructions: BOTH EYES naloxone [Rextovy] 4 mg/actuation spray,non-aerosol 1 spray intranasal Q2M Rx Instructions: spray 1 dose into ONE nostril; alternate nostrils w each dose until help arrives fluconazole 200 mg tablet 400 mg PO QDAY Rx Instructions: Take 400 mg (2 tablets) once daily Referrals: No Primary/Family,Physician [Primary Care Provider] Patient/Caregiver Discharge Instructions Print Language: Bolivian
--- NOTE | 2025-02-24 09:28 | PC.SS ---
Follow up note: Pending negative blood cultures. SS spoke to dad by phone to confirm d/c. Dad is requesting pt to return home to address: [address] [place] [address]. [id number]. SS attempted to contact patient's sister, Nelda at [phone] but was unable to leave voicemail. Dad is aware it's important to answer his phone when SS is attempting to contact him. Sanjuanita Patten from [facility] is aware.
--- NOTE | 2025-02-24 09:38 | ESPR_ITS ---
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 Per nurse, patient has been increasingly lethargic, refusing food, and minimally interactive compared to his baseline. At baseline, he is bedbound but usually alert and able to answer questions appropriately. On admission he was noted to have severe hypercalcemia. Renal consultation requested for hypercalcemia. ED Course: Vitals: BP 105/81, HR 96, RR 18, afebrile, 95% on room air Labs: Ca 15.1, Na 147, K 3.1, Phos 1.7, Mg 1.8, Cr 1.4; PCT 1.38; trop neg; VBG alkalemic. EKG NSR short TN; CXR no PNA Imaging: CT head negative for acute pathology. Given NS 1 L IV bolus in the ED Admitted for altered mental status secondary to hypercalcemia. ER provider gave 1 dose of pamidronate. Patient was started on IV fluids and was admitted toTelemetry. Past Medical History: As above Surgical History: RUNSTITCHING MACHINE OPERATOR shunt placement Medications: Rehab medications included atorvastatin, desmopressin, iron, fluconazole, [place], ibuprofen, Zoloft Allergies: NKDA Family history: Unable to obtain Social history: SNF resident; bedbound. Unable to obtain due to altered mental status. 02/20/2025: Patient currently seen in telemetry. He seems to be confused and quadriplegic in bed. Looks older than his stated age. Blood pressure 154/87, heart rate 85, afebrile. WBC 7.3, hemoglobin 11.9, platelets 286. Sodium 144, potassium 3.8, creatinine 1.1, lactic acid 1.4, corrected calcium 14.6, phosphorus 2.7, magnesium 1.5, LFTs normal, alk phos 143, albumin 4, TSH 0.8, urine calcium 8 urine tox screen positive for opiates. Chest x-ray was negative. 02/21/2025: Labs reviewed and patient examined at the bedside. BUN:18, Cr: 1.1, eGFR:>60 Ca:13.8 Calcium is downtrending. Continue with IVF and Denosumab if needed. 02/22/2025: Labs reviewed and patient examined at the bedside. Patient look sill loke slightly confused. BUN:18, Cr: 1.0, eGFR:>60 Ca:11.5 Calcium is downtrending.Continue with IVF and desmopressin 02/23/2025: Labs reviewed and patient examined at the bedside. Patient looks restless. Able to understand and interact with medical providers. BUN:15, Cr: 1.1, eGFR:>60. corrected Ca: 10.7. Calcium is downtrending. Continue with IVF and desmopressin 02/24/2025: Labs reviewed and patient examined at the bedside. Patient awake and stable. BUN: 11, Cr:0.9, eGFR:>60, cCA:9.2. Safe to discharge in nephrology standpoint. Exam Vital Signs Temp Pulse Resp BP Pulse Ox O2 Del Method O2 Flow Rate 97.6 F 102 H 17 134/81 H 97 Room Air 1 02/24/25 08:00 02/24/25 08:00 02/24/25 08:00 02/24/25 08:00 02/24/25 08:00 02/24/25 08:00 02/21/25 16:00 Narrative Exam General: Awake and alert, AAO x3 Eye: normal conjunctiva, no scleral icterus HENT: Normocephalic, atraumatic, hearing intact to conversation at normal volume, moist oral mucosa Neck: Supple, non-tender, no JVD, no lymphadenopathy Lungs: Non-labored respirations, symmetric chest rise, Clear to auscultate bilaterally, No wheezing, rhonchi, crackles Heart: Peripheral pulses intact bilaterally, Regular Rate and Rhythm. Abdomen: Soft, non-tender, non-distended, no palpable masses Musculoskeletal: Normal range of motion and strength, No cyanosis or edema, No visible joint swelling Skin: Skin is dry and few scratches Neuro: Cranial nerves II-XII grossly intact.Sensations intact to light touch. Objective Labs 02/25/25 04:45 02/25/25 04:45 Labs: Laboratory Results - last 24 hr 02/23/25 02/23/25 02/24/25 09:14 13:15 05:24 WBC 7.8 RBC 4.28 L Hgb 11.5 L Hct 36.0 L MCV 84 MCH 26.9 MCHC 31.9 RDW Std Deviation 50.1 H Plt Count 301 Neut % (Auto) 49 Lymph % (Auto) 37 [place] % (Auto) 7 Eos % (Auto) 6 Baso % (Auto) 0 Neut # (Auto) 3.9 Lymph # (Auto) 2.9 [place] # (Auto) 0.6 Eos # (Auto) 0.4 Baso # (Auto) 0.0 Immature Gran # (Auto) 0.04 H Absolute Nucleated RBC 0.00 Immature Gran % 1 H Nucleated RBC % 0 Sodium 144 141 Potassium 3.4 Chloride 106 Carbon Dioxide 23.7 Anion Gap 11 BUN 11 Creatinine 0.9 Estim Creat Clear Calc 71.0 eGFR > 60 BUN/Creatinine Ratio 12 Glucose 100 Calculated Osmolality 280 Calcium 9.1 D Corrected Calcium 9.2 D Phosphorus 2.5 Magnesium 1.6 Total Bilirubin 0.3 AST 11 ALT < 7 L Alkaline Phosphatase 138 H Total Protein 6.9 Albumin 3.9 Globulin 3.0 Albumin/Globulin Ratio 1.3 Vancomycin Trough 19.0 H Hepatitis A IgM Ab Non Reactive Hep Bs Antigen Non Reactive Hep B Core IgM Ab Non Reactive Hepatitis C Antibody Non Reactive ABG Interpretation ABG results: 02/19/25 14:50 VBG pH 7.48 VBG pCO2 45 VBG pO2 66 H VBG Base Excess 9 H Quality Measures Quality Measures VTE prophylaxis Assessment & Plan Assessment Current Active Medications: Generic Name Dose Route Start Last Admin Trade Name Martinq PRN Reason Stop Dose Admin Acetaminophen 650 mg 02/19/25 17:43 02/23/25 23:08 Acetaminophen 325 Mg Tablet PO 03/21/25 17:42 650 mg Q6H PRN Administration Fever >101.5 or pain 1-3 Desmopressin Acetate 1 mcg 02/20/25 08:00 02/23/25 08:23 Desmopressin Acetate 4 Mcg/Ml Vial IV 03/22/25 07:59 1 mcg QDAY CRISTINA Administration Fluconazole 400 mg 02/20/25 09:00 02/24/25 08:40 Fluconazole 100 Mg Tablet PO 02/27/25 08:59 400 mg QDAY CRISTINA Administration Heparin Sodium (Porcine) 5,000 unit 02/19/25 22:00 02/24/25 06:44 Heparin Sod Inj 5000 Unit/Ml Vial SC 03/05/25 21:59 5,000 unit Q8HR CRISTINA Administration Vancomycin/Sodium Chloride 750 mg in 150 mls @ 120 mls/hr 02/22/25 10:00 02/23/25 21:51 Vancomycin/Ns 750 Mg Ivpb IV 03/01/25 09:59 120 mls/hr QDAY@1000,2200 CRISTINA Administration Protocol Magnesium Sulfate 2 gm in 50 mls @ 25 mls/hr 02/24/25 07:46 02/24/25 08:38 Magnesium Sulfate Ivpb IV 02/24/25 09:45 25 mls/hr X1 ONE Administration Lorazepam 0.5 mg 02/23/25 15:45 Lorazepam 0.5 Mg Tablet PO 02/24/25 19:06 Q6HR PRN ANXIETY Morphine Sulfate 4 mg 02/23/25 09:43 Morphine Sulf Liqd 10 Mg/5 Ml Udc PO Q2H PRN pain (scale score 7-10) Morphine Sulfate 2 mg 02/23/25 09:43 Morphine Sulf Liqd 10 Mg/5 Ml Udc PO Q2H PRN pain (scale score 4-6) Multivitamins 1 tab 02/20/25 12:45 02/24/25 08:40 Multivitamins Tablet PO 03/22/25 12:44 1 tab QDAY CRISTINA Administration Pantoprazole Sodium 40 mg 02/21/25 09:00 02/24/25 08:39 Pantoprazole 40 Mg Tablet PO 03/23/25 08:59 40 mg Q12HR CRISTINA Administration Pharmacy Consult 1 each 02/22/25 09:00 Vancomycin Pharmacy To Dose 1 Each Each IV 03/24/25 08:59 QDAY PRN PROTOCOL Potassium Chloride 40 meq 02/24/25 11:00 Potassium Chloride 20 Meq Tabcr PO 02/24/25 11:01 X1 ONE Potassium Phos/Sodium Phos 1 packet 02/21/25 21:00 02/24/25 08:39 [facility] Mbdb 1 Packet (1.5 Gm) PO 03/23/25 20:59 1 packet BID CRISTINA Administration Sennosides 1 tab 02/20/25 09:00 02/24/25 08:40 Senna Tablet PO 03/22/25 08:59 1 tab QDAY CRISTINA Administration Protocol Sertraline HCl 50 mg 02/20/25 21:00 02/23/25 21:51 Sertraline Hcl 25 Mg Tablet PO 03/22/25 20:59 50 mg HS CRISTINA Administration Thiamine HCl 100 mg 02/20/25 09:00 02/24/25 08:40 Thiamine 100 Mg Tablet PO 03/22/25 08:59 100 mg QDAY CRISTINA Administration Plan 54-year-old male with past medical history of quadriplegia, chronic respiratory failure on 3 L O2 at baseline, 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 Renal consultation requested for hypercalcemia. #Altered mental status #Hypercalcemia, improving #Quadriplegic -On admission, Altered mental status and calcium of 15.1 (previous calcium November 2024 was 8.4). -Facility reports that he has not been eating for a few days. Patient was previously a PEG tube but was removed, usually able to tolerate oral feeding. -Also endorses fatigue, denies any seizure-like activity. Patient is bed bound due to quadriplegia. -Baseline mentation GCS 14, alert but intermittently confused per facility. Able to respond appropriately to questions on exam however appears very fatigued and lethargic. -Currently, BUN: 11, Cr:0.9, eGFR:>60, cCA:9.2 Plan: - Continue IV D5W 100ml/hr - Strict ins and outs - F/u PTH - CTM calcium #Central DI #Hypernatremia -Recent Dx of partial central DI. Sodium 144 -Currently, Sodium: 144 Plan: - CTM CMP daily - Continue Desmopressin 1 mcg daily - Continue IVF [id number], If improve switch to oral rehydration #Hypophosphatemia #Hypomagnesemia #Hypokalemia On admission, potassium 3.1, phosphorus 1.7. Likely secondary to inadequate nutrition and failure to thrive as above. -Replete accordingly -CTM electrolyte panel #History of disseminated cocci #Cocci meningitis #Hydrocephalus s/p RUNSTITCHING MACHINE OPERATOR shunt (04/2024) #History anxiety #History of depression -Management per Primary Hospitalist team Thank you for allowing us to participate in the care of your patient. Patient is stable in nephrology standpoint. No further recommendations. Assessment and plan discussed with my attending physician Dr. Dylan Nelson (PGY-1)- Internal medicine resident Attending Provider Attestation/Addendum Patient seen and examined with resident physician Dr. Nelson. Note reviewed, agree with findings and recommendations. Patient more alert and awake. Calcium levels and creatinine improved.
[2025-02-24] MEDS: DESMOPRESSIN ACETATE 4 MCG/ML VIAL 1 MCG IV (09:47)
[2025-02-24 12:00] VITALS: BP 123/82; PULSE 100; PULSE 103; RESP 22; TEMP 36.1; O2SAT 99
[2025-02-24] MEDS: VANCOMYCIN/NS 750 MG IVPB 750 MG/150 ML BAG 120 MG IV (12:36)
--- NOTE | 2025-02-24 14:26 | ESPR_ITS ---
<Statement entered by Nuno Fontenot MD - 02/24/25 15:55> No acute overnight events. Patient denies any other complaints and reported that he is doing well. Appears to be in his baseline. Vitals are stable. Blood cultures came back positive for Staph hominis likely contaminant. Labs done this morning showed sodium and calcium within normal limits. Hepatitis panel is ordered which came back negative. Patient will likely be discharged tomorrow to home with hospice. I have personally seen and examined the patient, agree with residents assessment and plan Patient plan of care was discussed with the attending physician, Dr. Marin Fontenot, PGY2 Documentation for date of: 02/24/25 Subjective Subjective Interval history: Was tachypnic and tachycardic overnight. Patient reports difficulty sleeping due to pain from his contractions and anxiety from being in a healthcare setting, will give Flexeril x1 and morphine prn. Patient continues to be at his baseline mentation. No new complaints. 1/2 repeat blood cultures 02/21 grew Staph epidermis and other grew Staph hominis, likely contaminant however will continue treat prophylactically with IV vancomycin. Repeat blood cultures 02/22 showed no growth over 48 hours. Otherwise hyponatremia and hypercalcemia has resolved. Continuing to treat possible refeeding syndrome in setting of persistent hypokalemia, electrolytes replaced accordingly. Hepatitis panel negative. Social work spoke to patient's father. Anticipate discharge tomorrow home with home hospice to [place] with father. Exam Vital Signs Temp Pulse Resp BP Pulse Ox O2 Del Method O2 Flow Rate 97.0 F 100 22 H 123/82 99 Room Air 1 02/24/25 12:02/24/25 12:02/24/25 12:02/24/25 12:02/24/25 12:02/24/25 12:02/21/25 16:00 Narrative Exam Physical Exam General: Alert, answering questions but confused. At baseline mentation. Cachetic and disheveled. Quadraplegic, bedbound. HEENT: Normocephalic, atraumatic, mucous membranes moist. Heart: Tachycardic. Regular rate and rhythm, normal S1 and S2, no murmurs. Lungs: Clear to auscultation with no wheezing or crackles. Abdomen: Soft, nondistended, nontender, positive bowel sounds. No guarding or rebound tenderness. Neurologic: Alert and oriented x1 (oriented to self, place or not time). Extremities: No edema. Contracted lower extremities, stiff. Skin: Few scabs and scratches on legs bilaterally. Very dry skin. Multiple pressure ulcers of lower extremities, stage 3 coccyxial wound. Objective Labs 02/25/25 04:45 02/25/25 04:45 Labs: Laboratory Results - last 24 hr 02/23/25 02/24/25 09:14 05:24 WBC 7.8 RBC 4.28 L Hgb 11.5 L Hct 36.0 L MCV 84 MCH 26.9 MCHC 31.9 RDW Std Deviation 50.1 H Plt Count 301 Neut % (Auto) 49 Lymph % (Auto) 37 [place] % (Auto) 7 Eos % (Auto) 6 Baso % (Auto) 0 Neut # (Auto) 3.9 Lymph # (Auto) 2.9 [place] # (Auto) 0.6 Eos # (Auto) 0.4 Baso # (Auto) 0.0 Immature Gran # (Auto) 0.04 H Absolute Nucleated RBC 0.00 Immature Gran % 1 H Nucleated RBC % 0 Sodium 141 Potassium 3.4 Chloride 106 Carbon Dioxide 23.7 Anion Gap 11 BUN 11 Creatinine 0.9 Estim Creat Clear Calc 71.0 eGFR > 60 BUN/Creatinine Ratio 12 Glucose 100 Calculated Osmolality 280 Calcium 9.1 D Corrected Calcium 9.2 D Phosphorus 2.5 Magnesium 1.6 Total Bilirubin 0.3 AST 11 ALT < 7 L Alkaline Phosphatase 138 H Total Protein 6.9 Albumin 3.9 Globulin 3.0 Albumin/Globulin Ratio 1.3 Hepatitis A IgM Ab Non Reactive Hep Bs Antigen Non Reactive Hep B Core IgM Ab Non Reactive Hepatitis C Antibody Non Reactive ABG Interpretation ABG results: 02/19/25 14:50 VBG pH 7.48 VBG pCO2 45 VBG pO2 66 H VBG Base Excess 9 H Quality Measures Quality Measures VTE prophylaxis Assessment & Plan Assessment Current Active Medications: Generic Name Dose Route Start Last Admin Trade Name Freq PRN Reason Stop Dose Admin Acetaminophen 650 mg 02/19/25 17:43 02/23/25 23:08 Acetaminophen 325 Mg Tablet PO 03/21/25 17:42 650 mg Q6H PRN Administration Fever >101.5 or pain 1-3 Desmopressin Acetate 1 mcg 02/20/25 08:00 02/24/25 09:47 Desmopressin Acetate 4 Mcg/Ml Vial IV 03/22/25 07:59 1 mcg QDAY CRISTINA Administration Fluconazole 400 mg 02/20/25 09:00 02/24/25 08:40 Fluconazole 100 Mg Tablet PO 02/27/25 08:59 400 mg QDAY CRISTINA Administration Heparin Sodium (Porcine) 5,000 unit 02/19/25 22:00 02/24/25 06:44 Heparin Sod Inj 5000 Unit/Ml Vial SC 03/05/25 21:59 5,000 unit Q8HR CRISTINA Administration Vancomycin/Sodium Chloride 750 mg in 150 mls @ 120 mls/hr 02/22/25 10:00 02/24/25 12:36 Vancomycin/Ns 750 Mg Ivpb IV 03/01/25 09:59 120 mls/hr QDAY@1000,2200 CRISTINA Administration Protocol Lorazepam 0.5 mg 02/23/25 15:45 Lorazepam 0.5 Mg Tablet PO 02/24/25 19:06 Q6HR PRN ANXIETY Morphine Sulfate 4 mg 02/23/25 09:43 Morphine Sulf Liqd 10 Mg/5 Ml Udc PO Q2H PRN pain (scale score 7-10) Morphine Sulfate 2 mg 02/23/25 09:43 Morphine Sulf Liqd 10 Mg/5 Ml Udc PO Q2H PRN pain (scale score 4-6) Multivitamins 1 tab 02/20/25 12:45 02/24/25 08:40 Multivitamins Tablet PO 03/22/25 12:44 1 tab QDAY CRISTINA Administration Pharmacy Consult 1 each 02/22/25 09:00 Vancomycin Pharmacy To Dose 1 Each Each IV 03/24/25 08:59 QDAY PRN PROTOCOL Potassium Phos/Sodium Phos 1 packet 02/21/25 21:00 02/24/25 08:39 Naph,[facility] Mbdb 1 Packet (1.5 Gm) PO 03/23/25 20:59 1 packet BID CRISTINA Administration Sennosides 1 tab 02/20/25 09:00 02/24/25 08:40 Senna Tablet PO 03/22/25 08:59 1 tab QDAY CRISTINA Administration Protocol Sertraline HCl 50 mg 02/20/25 21:00 02/23/25 21:51 Sertraline Hcl 25 Mg Tablet PO 03/22/25 20:59 50 mg HS CRISTINA Administration Thiamine HCl 100 mg 02/20/25 09:00 02/24/25 08:40 Thiamine 100 Mg Tablet PO 03/22/25 08:59 100 mg QDAY CRISTINA Administration Plan Patient is a 54 year old male with a past medical history significant for chronic respiratory failure on 3L O2 at baseline, quadriplegia, history of disseminated coccidiomycosis, primary hypertension, [id number] diabetes mellitus type 2, hyperlipidemia, hydrocephalus s/p CHIEF DISPATCHER SERVICE shunt presenting on 02/19 for altered mental status, admitted for acute encephalopathy likely secondary to hypercalcemia. #GPC bacteremia, likely contaminant #Stage III coccygeal pressure injury #GEMMA, resolved On admission, patient presented with altered mental status and GEMMA (creatinine 1.4, baseline 1-1.2) however WBC WNL and patient was afebrile, nontachycardic, not tachypnic. Unable to obtain ROS on admission due to altered mentation. Urine analysis was not obtained. 1/2 blood cultures 02/19 grew Staph epidermis. Repeat Bcx 02/21 grew 1/2 bottles Staph hominis and the other Staph epidermis, likely contaminant given different species. BCx 02/22 2/2 negative. Unclear source but possibly secondary to chronic pressure wounds on coccyx and lower extremities, likely contamination. Plan: - Continue IV Vanc (02/22- ) prophylactically - Wound care following #Acute on chronic encephalopathy #Hypercalcemia, improving #Quadriplegia, bedbound, likely 2/2 cocci Presented with altered mental status and calcium of 15.1 (previous calcium November 2024 was 8.4). Facility reports that he has not been eating for a few days. Patient previously had a PEG tube but was removed on previous admission, has been able to tolerate oral feeding. Reported decreased appetite and difficulty swallowing (will not specify beyond this), denies nausea or vomiting. Able to respond appropriately to questions on exam however appears very fatigued and lethargic. Patient is bed bound due to quadriplegia. Unclear etiology but likely secondary to disseminated cocci, including cocci meningitis. Per facility, baseline mentation GCS 14, alert but confused (A&Ox1). Oriented to self but not to time or place. PTH low at 3.6, unlikely primary hyperparathyroidism. S/p 1 L NS in ED. S/p 1L LR 200 mls/hr. S/p Pamidronate injection 60 mg x1, methylprednisolone 40 mg x1, denosumab x1 Plan: - Consulted business services sales representative Dr. Richardson, appreciate recommendations - Strict ins and outs - Encouraged oral rehydration - CTM calcium #Central DI #Hypernatremia, resolved Consulted business services sales representative Dr. Richardson on last admission 11/16-11/22/24 for persistent hypernatremia, diagnosed with central DI and started on Desmopressin. - Desmopressin 1 mcg daily - CTM CMP daily #Failure to thrive Previously required PEG tube feedings, tube was removed due to patient tolerating oral feeds. Per facility, has been refusing to eat/drink fluids for the past few days prior to admission. Patient is a hosp[facility] at [facility], admitted 11/2024. - Thiamine daily - MV daily - Ensure - Dysphagia diet - Consulted rapid transit operator #Hypophosphatemia #Hypomagnesemia #Hypokalemia #c/f refeeding syndrome On admission, potassium 3.1, phosphorus 1.7. Likely secondary to inadequate nutrition and failure to thrive as above. -Replete accordingly -CTM electrolyte panel #History of disseminated cocci #Cocci meningitis #Hydrocephalus s/p CHIEF DISPATCHER SERVICE shunt (04/2024) Previously at correctional facility, currently on parole. Unknown reason why. Unclear how long patient has had cocci, unknown duration of treatment. Likely contributory to patient's bedbound status. - Continue fluconazole 400 mg daily - Pending cocci titer #History anxiety #History of depression - Zoloft 50 mg nightly - Ativan 0.5mg q8hr as needed Health Maintenance Disposition: Telemetry DVT prophylaxis: Heparin GI prophylaxis: Protonix Diet: Dysphagia CODE STATUS: Full Patient plan of care was discussed with the resident, Dr. Fontenot, and attending physician, Dr. Funes. Massiel Pringle, PGY-1 Attending Provider Attestation/Addendum I have examined the patient, reviewed labs and imaging findings, discussed the case with the resident(s), and reviewed entered orders. I agree with the plan of care as outlined in this note. Dr. Marin MD
--- NOTE | 2025-02-24 14:36 | PC.NURSE ---
patient will be DISCHARGED tomorrow, 02/25/25 at 10am, per social service LEANDRA. to [facility].
--- NOTE | 2025-02-24 15:12 | PC.SS ---
SS spoke to Sanjuanita F. from [facility] who is aware pt will be returning home to [place]. Sanjuanita F. from [facility] states pt will be arriving late in the evening. Sanjuanita Carlos states she has contacted [facility] in [place] who explained dc will be too late, they will not have nurse available until tomorrow morning, and she followed up with dad who is not comfortable accepting pt without [facility] going to out to the home tonight. SS has spoken to Dr. Funes and resident team who are agreeable for pt to dc tomorrow morning due to [facility] not being available tonight. Bedside nurseFermin is aware SS will setup transportation tomorrow for 10am. SS contacted patient's sister who is aware.
[2025-02-24 16:00] VITALS: BP 124/76; PULSE 101; PULSE 103; RESP 22; TEMP 36.6; O2SAT 99
[2025-02-24 20:00] VITALS: BP 129/89; PULSE 100; PULSE 103; RESP 26; TEMP 36.9; O2SAT 96
[2025-02-24] MEDS: SERTRALINE HCL 25 MG TABLET 50 MG PO (21:57)
[2025-02-24 22:12] LABS: Vancomycin,Trough 22.1 mcg/mL (5.0-10.0)
--- NOTE | 2025-02-24 23:00 | PC.NURSE ---
called Dr. Montemayor regarding patient's vanco trough at 2100 draw resulted to 22.1. Per protocol to hold dose of vanco IV if trough is >20. Vanco dose held. MD aware, no new orders received.
[2025-02-25] VITALS: BP 125/62; PULSE 87; PULSE 95; RESP 10; TEMP 36.2; O2SAT 95
[2025-02-25 04:00] VITALS: BP 142/87; PULSE 100; PULSE 89; RESP 19; TEMP 36.2; O2SAT 95
[2025-02-25 05:26] LABS: Basophils # (Auto) 0.0 Thou/mm3 (0.0-0.2); Basophils % (Auto) 1 % (0-2.5); Eosinophils # (Auto) 0.5 Thou/mm3 (0.0-0.5); Eosinophils % (Auto) 6 % (0-10); Hematocrit 36.7 % (41.0-53.0); Hemoglobin 11.8 g/dL (13.5-16.0); Immature Granulocytes Auto 0.03 Thou/mm3 (0.00-0.00); Lymphocytes # (Auto) 2.6 Thou/mm3 (1.0-4.8); Lymphocytes % (Auto) 34 % (10-50); Mean Corpuscular HGB Conc 32.2 g/dl (31.0-37.0); Mean Corpuscular Hemoglobin 26.5 pg (25.0-35.0); Mean Corpuscular Volume 83 fL (80-100); Monocytes # (Auto) 0.5 Thou/mm3 (0.0-0.8); Monocytes % (Auto) 7 % (0-12); Neutrophils # (Auto) 4.2 Thou/mm3 (1.8-7.7); Neutrophils % (Auto) 53 % (37-80); Nucleated Red Blood Cell # 0.00 Thou/mm3 (0.00-0.00); Nucleated Red Blood Cell % 0 /100 WBC (0); Platelet Count 316 Thou/mm3 (140-440); RDW Standard Deviation 49.9 fL (35.1-43.9); Red Blood Count 4.45 Miln/mm3 (4.50-5.90); White Blood Count 7.9 Thou/mm3 (3.8-10.6)
[2025-02-25 05:28] VITALS: BMI 17.2
[2025-02-25 05:46] LABS: Alanine Aminotransferase < 7 U/L (10-49); Albumin, Serum 3.9 gm/dL (3.5-5.0); Albumin/Globulin Ratio 1.3 (1.2-2.2); Alkaline Phosphatase 149 U/L (46-116); Anion Gap 11 (7-16); Aspartate Amino Transferase 14 U/L (0-34); BUN/Creatinine Ratio 15 Ratio (12-20); Bilirubin,Total 0.2 mg/dL (0.3-1.2); Blood Urea Nitrogen 12 mg/dL (9-23); Calcium 9.1 mg/dL (8.3-10.6); Calcium (Corrected) 9.2 mg/dL (8.5-10.1); Carbon Dioxide 24.0 mMol/L (20.0-31.0); Chloride 110 mMol/L (98-107); Creatinine (Component) 0.8 mg/dL (0.6-1.3); Estimated Creatinine Clearance 80.7 mL/min (>60); Globulin 2.9 gm/dL (2.3-3.5); Glucose 95 mg/dL (74-106); Magnesium 1.6 mg/dL (1.6-2.6); Osmolality,Calculated 288 (275-295); Phosphorous 2.1 mg/dL (2.4-5.1); Potassium 4.6 mMol/L (3.4-5.1); Sodium 145 mMol/L (136-145); Total Protein 6.8 gm/dL (5.7-8.2); eGFR > 60 See Note
[2025-02-25] MEDS: HEPARIN SOD INJ 5000 UNIT/ML VIAL SC (05:47)
--- NOTE | 2025-02-25 06:21 | PC.NURSE ---
Pt got transferred from Tele to room 367, pt is alert and awake but confused. Pt is quadriplegic and is bedbound. Able to use call light.
[2025-02-25 08:00] VITALS: BP 148/97; PULSE 103; PULSE 89; RESP 18; TEMP 36.5; O2SAT 99
--- NOTE | 2025-02-25 09:15 | PD.RESPRO ---
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 Per nurse, patient has been increasingly lethargic, refusing food, and minimally interactive compared to his baseline. At baseline, he is bedbound but usually alert and able to answer questions appropriately. On admission he was noted to have severe hypercalcemia. Renal consultation requested for hypercalcemia. ED Course: Vitals: BP 105/81, HR 96, RR 18, afebrile, 95% on room air Labs: Ca 15.1, Na 147, K 3.1, Phos 1.7, Mg 1.8, Cr 1.4; PCT 1.38; trop neg; VBG alkalemic. EKG NSR short NH; CXR no PNA Imaging: CT head negative for acute pathology. Given NS 1 L IV bolus in the ED Admitted for altered mental status secondary to hypercalcemia. ER provider gave 1 dose of pamidronate. Patient was started on IV fluids and was admitted toTelemetry. Past Medical History: As above Surgical History: CONSTRUCTION TECH shunt placement Medications: Rehab medications included atorvastatin, desmopressin, iron, fluconazole, [place], ibuprofen, Zoloft Allergies: NKDA Family history: Unable to obtain Social history: SNF resident; bedbound. Unable to obtain due to altered mental status. 02/20/2025: Patient currently seen in telemetry. He seems to be confused and quadriplegic in bed. Looks older than his stated age. Blood pressure 154/87, heart rate 85, afebrile. WBC 7.3, hemoglobin 11.9, platelets 286. Sodium 144, potassium 3.8, creatinine 1.1, lactic acid 1.4, corrected calcium 14.6, phosphorus 2.7, magnesium 1.5, LFTs normal, alk phos 143, albumin 4, TSH 0.8, urine calcium 8 urine tox screen positive for opiates. Chest x-ray was negative. 02/21/2025: Labs reviewed and patient examined at the bedside. BUN:18, Cr: 1.1, eGFR:>60 Ca:13.8 Calcium is downtrending. Continue with IVF and Denosumab if needed. 02/22/2025: Labs reviewed and patient examined at the bedside. Patient look sill loke slightly confused. BUN:18, Cr: 1.0, eGFR:>60 Ca:11.5 Calcium is downtrending.Continue with IVF and desmopressin 02/23/2025: Labs reviewed and patient examined at the bedside. Patient looks restless. Able to understand and interact with medical providers. BUN:15, Cr: 1.1, eGFR:>60. corrected Ca: 10.7. Calcium is downtrending. Continue with IVF and desmopressin 02/24/2025: Labs reviewed and patient examined at the bedside. Patient awake and stable. BUN: 11, Cr:0.9, eGFR:>60, cCA:9.2. Safe to discharge in nephrology standpoint. 02/25/2025: Labs reviewed and patient examined at the bedside. Patient awake and stable. BUN: 12, Cr:0.8, eGFR:>60, cCA:9.2. Safe to discharge Exam Vital Signs Temp Pulse Resp BP Pulse Ox O2 Del Method O2 Flow Rate 97.7 F 103 H 18 148/97 H 99 Room Air 1 02/25/25 08:00 02/25/25 08:00 02/25/25 08:00 02/25/25 08:00 02/25/25 08:00 02/25/25 08:00 02/21/25 16:00 Narrative Exam General: Awake and alert, AAO x3 Eye: normal conjunctiva, no scleral icterus HENT: Normocephalic, atraumatic, hearing intact to conversation at normal volume, moist oral mucosa Neck: Supple, non-tender, no JVD, no lymphadenopathy Lungs: Non-labored respirations, symmetric chest rise, Clear to auscultate bilaterally, No wheezing, rhonchi, crackles Heart: Peripheral pulses intact bilaterally, Regular Rate and Rhythm. Abdomen: Soft, non-tender, non-distended, no palpable masses Musculoskeletal: Normal range of motion and strength, No cyanosis or edema, No visible joint swelling Skin: Skin is dry and few scratches Neuro: Cranial nerves II-XII grossly intact.Sensations intact to light touch. Objective Labs 02/25/25 04:45 02/25/25 04:45 Labs: Laboratory Results - last 24 hr 02/24/25 02/25/25 21:04 04:45 WBC 7.9 RBC 4.45 L Hgb 11.8 L Hct 36.7 L MCV 83 MCH 26.5 MCHC 32.2 RDW Std Deviation 49.9 H Plt Count 316 Neut % (Auto) 53 Lymph % (Auto) 34 [place] % (Auto) 7 Eos % (Auto) 6 Baso % (Auto) 1 Neut # (Auto) 4.2 Lymph # (Auto) 2.6 [place] # (Auto) 0.5 Eos # (Auto) 0.5 Baso # (Auto) 0.0 Immature Gran # (Auto) 0.03 H Absolute Nucleated RBC 0.00 Immature Gran % 0 Nucleated RBC % 0 Sodium 145 Potassium 4.6 D Chloride 110 H Carbon Dioxide 24.0 Anion Gap 11 BUN 12 Creatinine 0.8 Estim Creat Clear Calc 80.7 eGFR > 60 BUN/Creatinine Ratio 15 Glucose 95 Calculated Osmolality 288 Calcium 9.1 Corrected Calcium 9.2 Phosphorus 2.1 L Magnesium 1.6 Total Bilirubin 0.2 L AST 14 ALT < 7 L Alkaline Phosphatase 149 H Total Protein 6.8 Albumin 3.9 Globulin 2.9 Albumin/Globulin Ratio 1.3 Vancomycin Trough 22.1 H* ABG Interpretation ABG results: 02/19/25 14:50 VBG pH 7.48 VBG pCO2 45 VBG pO2 66 H VBG Base Excess 9 H Quality Measures Quality Measures VTE prophylaxis Assessment & Plan Assessment Current Active Medications: Generic Name Dose Route Start Last Admin Trade Name Barry PRN Reason Stop Dose Admin Acetaminophen 650 mg 02/19/25 17:43 02/23/25 23:08 Acetaminophen 325 Mg Tablet PO 03/21/25 17:42 650 mg Q6H PRN Administration Fever >101.5 or pain 1-3 Cyclobenzaprine HCl 5 mg 02/25/25 09:14 Cyclobenzaprine 5 Mg Tablet PO 02/25/25 09:15 X1 ONE Desmopressin Acetate 1 mcg 02/20/25 08:00 02/24/25 09:47 Desmopressin Acetate 4 Mcg/Ml Vial IV 03/22/25 07:59 1 mcg QDAY CRISTINA Administration Fluconazole 400 mg 02/20/25 09:00 02/24/25 08:40 Fluconazole 100 Mg Tablet PO 02/27/25 08:59 400 mg QDAY CRISTINA Administration Heparin Sodium (Porcine) 5,000 unit 02/19/25 22:00 02/25/25 05:47 Heparin Sod Inj 5000 Unit/Ml Vial SC 03/05/25 21:59 5,000 unit Q8HR CRISTINA Administration Vancomycin/Sodium Chloride 100 mls @ 1 mls/hr 02/25/25 10:00 Vancomycin/Ns 500 Mg Ivpb IV 03/04/25 09:59 Q12H CRISTINA Magnesium Sulfate 2 gm in 50 mls @ 25 mls/hr 02/25/25 08:21 Magnesium Sulfate Ivpb IV 02/25/25 10:20 X1 ONE Morphine Sulfate 4 mg 02/23/25 09:43 Morphine Sulf Liqd 10 Mg/5 Ml Udc PO Q2H PRN pain (scale score 7-10) Morphine Sulfate 2 mg 02/23/25 09:43 Morphine Sulf Liqd 10 Mg/5 Ml Udc PO Q2H PRN pain (scale score 4-6) Multivitamins 1 tab 02/20/25 12:45 02/24/25 08:40 Multivitamins Tablet PO 03/22/25 12:44 1 tab QDAY CRISTINA Administration Pharmacy Consult 1 each 02/22/25 09:00 Vancomycin Pharmacy To Dose 1 Each Each IV 03/24/25 08:59 QDAY PRN PROTOCOL Potassium Phos/Sodium Phos 1 packet 02/21/25 21:00 02/24/25 21:57 Naph,Kph Mbdb 1 Packet (1.5 Gm) PO 03/23/25 20:59 1 packet BID CRISTINA Administration Sennosides 1 tab 02/20/25 09:00 02/24/25 08:40 Senna Tablet PO 03/22/25 08:59 1 tab QDAY CRISTINA Administration Protocol Sertraline HCl 50 mg 02/20/25 21:00 02/24/25 21:57 Sertraline Hcl 25 Mg Tablet PO 03/22/25 20:59 50 mg HS CRISTINA Administration Thiamine HCl 100 mg 02/20/25 09:00 02/24/25 08:40 Thiamine 100 Mg Tablet PO 03/22/25 08:59 100 mg QDAY CRISTINA Administration Plan 54-year-old male with past medical history of quadriplegia, chronic respiratory failure on 3 L O2 at baseline, 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 Renal consultation requested for hypercalcemia. #Altered mental status #Hypercalcemia, improving #Quadriplegic -On admission, Altered mental status and calcium of 15.1 (previous calcium November 2024 was 8.4). -Facility reports that he has not been eating for a few days. Patient was previously a PEG tube but was removed, usually able to tolerate oral feeding. -Also endorses fatigue, denies any seizure-like activity. Patient is bed bound due to quadriplegia. -Baseline mentation GCS 14, alert but intermittently confused per facility. Able to respond appropriately to questions on exam however appears very fatigued and lethargic. -Currently, BUN: 12, Cr:0.8, eGFR:>60, cCA:9.2 Plan: - Strict ins and outs - F/u PTH - CTM calcium #Central DI #Hypernatremia -Recent Dx of partial central DI. Sodium 144 -Currently, Sodium: 145 Plan: - CTM CMP daily - Continue Desmopressin 1 mcg daily #Hypophosphatemia #Hypomagnesemia #Hypokalemia On admission, potassium 3.1, phosphorus 1.7. Likely secondary to inadequate nutrition and failure to thrive as above. -Replete accordingly -CTM electrolyte panel #History of disseminated cocci #Cocci meningitis #Hydrocephalus s/p CONSTRUCTION TECH shunt (04/2024) #History anxiety #History of depression -Management per Primary Hospitalist team Thank you for allowing us to participate in the care of your patient. Patient is stable in nephrology standpoint. No further recommendations. Assessment and plan discussed with my attending physician Dr. Dylan Nelson (PGY-1)- Internal medicine resident Attending Provider Attestation/Addendum Patient seen and examined with resident physician Dr. Nelson. Note reviewed, agree with findings and recommendations. Patient more alert and awake. Calcium levels and creatinine improved. Possible discharge today to rehab.
--- NOTE | 2025-02-25 10:04 | PC.SS ---
SS met with bedside nurseAlexus who explained pt is receiving Magnesium which takes up to 2 hours. SS attempted to setup transportation with 2 different [facility] representatives but was unsuccessful. Arti and Win from [facility] both explained they are not able to verify members account therefore, unable to setup transport. SS also attempted to setup gurney transportation with Sanjuanita from [facility] but they are unable to accommodate transport. SS has sent patient's facesheet, ambulance form, and MAGEN to [facility] using [facility]. Transportation has been set for 1pm. Pt will return home to [address] [place] [id number]. Dad is aware. Sister, Nelda is aware. Sanjuanita Patten from [facility] is aware. Marely COREAS is aware. Bedside nurseAlexus is aware.
[2025-02-25] MEDS: VANCOMYCIN/NS 500 MG IVPB 100 ML IV (10:06)
[2025-02-25] MEDS: Magnesium Sulfate 2 GM Ivpb 2 GM/50 ML BAG IV (10:07)
[2025-02-25] MEDS: THIAMINE 100 MG TABLET PO (10:07)
[2025-02-25] MEDS: MULTIVITAMINS TABLET 1 TAB PO (10:07)
[2025-02-25] MEDS: FLUCONAZOLE 100 MG TABLET 400 MG PO (10:07)
[2025-02-25] MEDS: NAPH,KPH MBDB 1 PACKET (1.5 GM) PO (10:07)
[2025-02-25] MEDS: MORPHINE SULF LIQD 10 MG/5 ML UDC 2 MG PO (10:07)
[2025-02-25] MEDS: DESMOPRESSIN ACETATE 4 MCG/ML VIAL 1 MCG IV (10:37)
[2025-02-25 11:43] VITALS: BP 150/93; PULSE 108; RESP 18; TEMP 36.6; O2SAT 99
--- NOTE | 2025-02-25 11:59 | ESDS_ITS ---
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 Patient's mental status markedly improved through hospital stay. He will be discharged with the following instructions as outlined in the note below. I have personally seen and examined the patient. I agree with the resident's discharge plan as documented below. Baron Coleman DO PGY-2 Internal Medicine - GME Planned Discharge Date 02/25/25 DS: Providers Provider Date of admission: 02/19/25 17:43 Primary care physician: Physician No Primary/Family Admitting Provider: Tova Lagunas MD Attending Provider on Admission: Michael uFnes MD Consults: 02/19/25 18:00 Consult to Nephrology Routine Comment: Consulting Provider: Omero Richardson 02/19/25 18:20 Referral Registered Dietitian Routine Comment: 02/19/25 23:08 Referral Wound Care Urgent Comment: [facility] /[facility] 02/20/25 07:32 Referral Speech Therapy Routine Comment: 02/23/25 14:16 Referral Hospice Routine Comment: Attending Provider on DC: Michael Funes MD Discharging Provider: Massiel Pringle DO DS: Diagnosis Problem List Completed Was Problem List Reviewed/Reconciled?: Yes Hospital Course Hospital Course Hospital course: Summary: Patient is a 54-year-old male with past medical history of quadripl egia, chronic respiratory failure on 3 L O2 at baseline, 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 Given paminodrate, steroids, denosumab, and IV fluids with resolution of hypercalcemia. Developed mild hypernatremia from IV fluids with saline, otherwise controlled on desmopressin, switched to IV D5W, and encouraged oral rehydration. GEMMA also resolved with fluids. Patient tolerated meals orally and returned back to baseline mentation. In light of severe electrolyte deficiencies, dietary was consulted and patient was treated for refeeding syndrome. Of note, 1/2 blood cultures was positive for Staph epidermis, second repeat blood cultures were positive for Staph epidermis and Staph hominis, likely contaminant but treated prophylatically with IV vancomycin starting 02/22 in setting of chronic wounds. Wound care was provided daily. Pain from contractions improved on Flexeril. Patient was safely discharged home with hospice per patient's and father's wishes. ED Course: Vitals: BP 105/81, HR 96, RR 18, afebrile, 95% on room air Labs: Ca 15.1, Na 147, K 3.1, Phos 1.7, Mg 1.8, Cr 1.4; PCT 1.38; trop neg; VBG alkalemic. EKG NSR short HI; CXR no PNA Imaging: CT head negative for acute pathology. Given NS 1 L IV bolus in the ED, pamidronate x1 Discharge Recommendations: -Follow-up with Primary Care Physician within 1 week of discharge. -Take Trimethoprim and sulfamethoxazole twice daily for 7days. -Take cyclobenzaprine 5 mg by mouth three times a day as needed for muscle spasms -Take multivitamin and rest of the home medication -Repeat renal panel within 1 week of discharge -Take neutraphos twice daily for 3 days -Stop taking/using fleet enemas - use Senna 4.3mg tablet by mouth as needed for constipation -Recommended to drink adequate amount of fluids -Return to nearest Emergency Department if symptoms persist or return Hospital Diagnoses: #GPC bacteremia, likely contaminant #Stage III coccygeal pressure injury #GEMMA, resolved #Acute on chronic encephalopathy #Hypercalcemia, improving #Quadriplegia, bedbound, likely 2/2 cocci #Central DI #Hypernatremia, resolved #Failure to thrive #Hypophosphatemia #Hypomagnesemia #Hypokalemia #c/f refeeding syndrome #History of disseminated cocci #Cocci meningitis #Hydrocephalus s/p NURSERY ATTENDANT shunt (04/2024) #History anxiety #History of depression Disposition: Safe to discharge home with hospice. Patient plan of care was discussed with the resident, Dr. Coleman, and attending physician, Dr. Funes. Massiel Pringle, PGY-1 Time Spent with Patient Time attestation: Total time spent providing and/or coordinating discharge services: Time spent: Greater than 30 minutes Exam Vital Signs Temp Pulse Resp BP Pulse Ox O2 Del Method O2 Flow Rate 97.9 F 108 H 18 150/93 H 99 Room Air 1 02/25/25 11:43 02/25/25 11:43 02/25/25 11:43 02/25/25 11:43 02/25/25 11:43 02/25/25 11:43 02/21/25 16:00 Narrative Exam Physical Exam General: Alert, answering questions but confused. At baseline mentation. Cachetic and disheveled. Quadraplegic, bedbound. HEENT: Normocephalic, atraumatic, mucous membranes moist. Heart: Tachycardic. Regular rate and rhythm, normal S1 and S2, no murmurs. Lungs: Clear to auscultation with no wheezing or crackles. Abdomen: Soft, nondistended, nontender, positive bowel sounds. No guarding or rebound tenderness. Neurologic: Alert and oriented x1 (oriented to self, place or not time). Extremities: No edema. Contracted lower extremities, stiff. Skin: Few scabs and scratches on legs bilaterally. Very dry skin. Multiple pressure ulcers of lower extremities, stage 3 coccyxial wound. Discharge Plan Plan Patient Disposition: Home w/HOSPICE Patient condition on transfer: Stable Care Plan Goals: -Follow-up with Primary Care Physician within 1 week of discharge. -Take Trimethoprim and sulfamethoxazole twice daily for 7days. -Take cyclobenzaprine 5 mg by mouth three times a day as needed for muscle spasms -Take multivitamin and rest of the home medication -Repeat renal panel within 1 week of discharge -Take neutraphos twice daily for 3 days -Stop taking/using fleet enemas - use Senna 4.3mg tablet by mouth as needed for constipation -Recommended to drink adequate amount of fluids -Return to nearest Emergency Department if symptoms persist or return Prescriptions/Referrals Prescriptions/Med Rec: New multivitamin with folic acid [Tab-A-Gloria] 400 mcg Tablet 1 tab PO QDAY Qty: 30 0RF sulfamethoxazole-trimethoprim 400-80 mg tablet 1 tab PO BID Qty: 14 0RF sennosides [Senna Lax] 8.6 mg Tablet 4.3 mg PO QDAY PRN (Reason: constipation) 30 Days Qty: 30 0RF cyclobenzaprine 5 mg tablet 5 mg PO TID PRN (Reason: muscle spasm) 30 Days Qty: 60 0RF Continued bisacodyl 10 mg suppository 10 mg HI Q72H PRN (Reason: constipation) bisacodyl [Dulcolax (bisacodyl)] 10 mg suppository 10 mg HI QDAY PRN (Reason: constipation) Rx Instructions: insert 1 suppository rectally as needed for constipation, to be administered the following shift if MOM is ineffective lorazepam [Ativan] 0.5 mg tablet 0.5 mg PO Q6H PRN (Reason: anxiety) magnesium hydroxide [Milk of Magnesia] 400 mg/5 mL suspension 30 ml PO Q72H PRN (Reason: constipation) Rx Instructions: give 30ml by mouth every 72 hours as needed for constipation no BM for 3 days morphine 20 mg/5 mL (4 mg/mL) solution 2 mg PO Q2H PRN (Reason: pain (scale score 4-6)) morphine 20 mg/5 mL (4 mg/mL) solution 4 mg PO Q2H PRN (Reason: pain (scale score 7-10)) ferrous sulfate [Feosol] 325 mg (65 mg iron) tablet 325 mg PO QDAY Qty: 30 0RF desmopressin 0.1 mg tablet 0.1 mg PO DAILY Qty: 30 0RF sertraline [Zoloft] 50 mg tablet 50 mg PO QDAY cranberry 450 mg tablet 450 mg PO QDAY Rx Instructions: administer with a meal hydrocodone-acetaminophen 5-325 mg tablet 1 tab PO Q8H PRN (Reason: pain, moderate) ibuprofen [IBU] 400 mg tablet 400 mg PO Q8H PRN (Reason: mild pain (scale score 1-4)) artificial tears solution Drops 2 drp ophthalmic (eye) .Q4 HRS PRN (Reason: dry eyes) Rx Instructions: BOTH EYES naloxone [Rextovy] 4 mg/actuation spray,non-aerosol 1 spray intranasal Q2M Rx Instructions: spray 1 dose into ONE nostril; alternate nostrils w each dose until help arrives fluconazole 200 mg tablet 400 mg PO QDAY Rx Instructions: Take 400 mg (2 tablets) once daily Discontinued Fleet Enema 19-7 gram/118 mL enema 118 ml HI Q72H PRN (Reason: constipation) Rx Instructions: insert 1 dose rectally every 72 hrs as needed for constipation, to be administered the following shift if Dulcolax suppository is ineffective, notify MD if no result atorvastatin 40 mg tablet 40 mg PO HS Qty: 30 0RF Referrals: No Primary/Family,Physician [Primary Care Provider] Patient/Caregiver Discharge Instructions Education Materials: Hypercalcemia Dc, Hypercalcemia Dc Ch, Hypernatremia Dc, ED Dehydration (Adult) Print Language: Greek Stand Alone Forms: Martina Award Info., Patient Portal Info Letter Discharge Order Discharge Orders: Discharge (Routine); Ordered 02/25/25 Ordered By: Nuno Fontenot Quality Discharge Quality Measures VTE prophylaxis MD Attestestation MD Attestation I have examined the patient, reviewed labs and imaging findings, discussed the case with the resident(s), and reviewed entered orders. I agree with the plan of care as outlined in this note. Time Spent: [address] Marin MD
[2025-02-25 12:00] VITALS: PULSE 93
[2025-03-02 06:51] LABS: Vitamin D,1,25 (OH)2,Total <8 pg/mL (18-72); Vitamin D2, 1,25 (OH)2 <8 pg/mL; Vitamin D3, 1,25 (OH)2 <8 pg/mL
== END 2025-02-25 13:42 | disposition hospice, home (50) | DRG 425 ==
LOC: SERX 14:47 → SERHOLD 17:55 → S2NX 19:58 → S3SX 02-25 06:18
PROVIDERS: Internal Medicine; Admitting Provider Student in an Organized Health Care Education/Training Program; Emergency Provider Family Medicine; Visit Provider Student in an Organized Health Care Education/Training Program
DX: E83.52 Hypercalcemia (principal); G91.9 Hydrocephalus, unspecified; J96.11 Chronic respiratory failure with hypoxia; E78.5 Hyperlipidemia, unspecified; G82.50 Quadriplegia, unspecified; E11.9 Type 2 diabetes mellitus without complications; I10 Essential (primary) hypertension; K21.9 Gastro-esophageal reflux disease without esophagitis; Z74.01 Bed confinement status; R64 Cachexia; E83.39 Other disorders of phosphorus metabolism; E87.6 Hypokalemia; E83.42 Hypomagnesemia; R62.7 Adult failure to thrive; E87.0 Hyperosmolality and hypernatremia; F32.A Depression, unspecified; F41.9 Anxiety disorder, unspecified; Z98.2 Presence of cerebrospinal fluid drainage device; B38.9 Coccidioidomycosis, unspecified; E87.1 Hypo-osmolality and hyponatremia; Z68.1 Body mass index [BMI] 19.9 or less, adult; Z65.3 Problems related to other legal circumstances; L89.153 Pressure ulcer of sacral region, stage 3; Z79.899 Other long term (current) drug therapy; N17.9 Acute kidney failure, unspecified; R13.10 Dysphagia, unspecified; Z93.1 Gastrostomy status; G93.40 Encephalopathy, unspecified; G03.9 Meningitis, unspecified; Z51.5 Encounter for palliative care; Z79.84 Long term (current) use of oral hypoglycemic drugs; Z86.61 Personal history of infections of the central nervous system
CPT/HCPCS: 36415; 70450; 71045; 80053; 80074; 80202; 80307; 80320; 80329; 82306; 82340; 82570; 82652; 82803; 83605; 83735; 83970; 84100; 84145; 84295; 84443; 84484; 85025; 85610; 86171; 86635; 87040; 87077; 87081; 87186; 92526; 92610; 93005; 94762; 99285; J0897; J1644; J2430; J2470; J2597; J2919; J3370; J3373; J3475; J3480; J7030; J7070; J7120; J7999; A9270; G0480